=== PATIENT | female | born 1940 | race Caucasian/White ===

== ENCOUNTER 2024-02-22 20:45 | Emergency (ER) | payer OTHER, MEDICAID, SELFPAY ==
[2024-02-22 20:47] VITALS: BP 122/71; PULSE 62; RESP 18; TEMP 36.9; O2SAT 98; BMI 18.7
[2024-02-22 20:53] VITALS: PULSE 63; O2SAT 91
--- NOTE | 2024-02-22 21:17 | XR_ITS ---
Examination: Toes, right foot 3 views Technique: Toes AP oblique lateral 3 views right foot first digit Date and time of exam: February 22, [id number] hrs. Indications: Right first digit pain today Findings: No acute fracture No dislocation No foreign body Impression: No acute fracture
--- NOTE | 2024-02-22 21:17 | PD.EDANKLE ---
Lower Extremity Injury RME/HPI General Chief Complaint: Ankle/Foot Injury Stated Complaint: TOE PAIN Time Seen by Provider: 02/22/24 21:10 Arrival date/time: 02/22/24 20:45 RME / HPI RME / HPI Narrative: 83-year-old female patient was brought in by family for evaluation regarding laceration to the left great toe. Patient sustained laceration to the left great toe, after patient fell. Patient sustained a 2 cm gaping laceration. Patient denies any other complaints. Patient is ambulatory. Related Data Home Medications ?Medication ?Instructions ?Recorded ?Confirmed hydrocodone 10 mg-acetaminophen 1 tab PO BID #0 tabs 08/11/13 01/08/23 325 mg tablet amitriptyline 25 mg tablet 25 mg PO HS 04/22/21 01/08/23 atorvastatin 10 mg tablet 10 mg PO QPM 04/22/21 01/08/23 tizanidine 4 mg tablet 4 mg PO Q8HR PRN Dizziness 04/22/21 01/08/23 clopidogrel 75 mg tablet (Plavix) 75 mg PO QDAY 12/25/22 01/08/23 lansoprazole 30 mg capsule,delayed 30 mg PO QDAY 12/25/22 01/08/23 release (Prevacid) montelukast 10 mg tablet 10 mg PO QDAY 12/25/22 01/08/23 (Singulair) diclofenac sodium 75 mg 75 mg PO BID 01/08/23 01/08/23 tablet,delayed release meclizine 12.5 mg tablet 12.5 mg PO TID PRN Dizziness 01/08/23 01/08/23 metoprolol succinate 25 mg 25 mg PO QDAY 01/08/23 01/08/23 tablet,extended release 24 hr misoprostol 200 mcg tablet 200 mcg PO BID 01/08/23 01/08/23 pregabalin 100 mg capsule 100 mg PO BID 01/08/23 01/08/23 sertraline 100 mg tablet 100 mg PO QDAY 01/08/23 01/08/23 Previous Rx's ?Medication ?Instructions ?Recorded albuterol sulfate 90 mcg/actuation 1 inh inhalation QID PRN shortness 01/09/23 aerosol inhaler of breath or wheezing #6.7 grams furosemide 40 mg tablet 40 mg PO QDAY #30 tabs 01/09/23 lisinopril 40 mg tablet 40 mg PO QDAY #30 tabs 01/09/23 metoprolol succinate 25 mg 25 mg PO QDAY 30 days #30 tabs 01/09/23 tablet,extended release 24 hr nicotine 14 mg/24 hr daily 14 mg topical .OD #28 ea 01/09/23 transdermal patch tiotropium bromide 2.5 2 inh inhalation QAM #4 grams 01/09/23 mcg/actuation mist for inhalation (Spiriva Respimat) Allergies Allergy/AdvReac Type Severity Reaction Status Date / Time No Known Allergies Allergy Verified 12/23/22 08:17 Review of Systems Review of Systems Narrative Review of Systems: Review of system reviewed and within normal limits except mentioned in HPI ED Exam Narrative Physical exam: VITAL SIGNS: Reviewed. GENERAL APPEARANCE: Alert and interactive, follows commands, no acute distress, HEAD AND FACE: Non-traumatic. ENT: PERRL, pink conjunctivitis, eyelid no trauma, Mucous membrane moist. NECK: Supple, nontender, no nuchal rigidity. RECTAL: Deferred. GENITAL: Deferred. NEUROLOGICAL: Gross motor function intact sensory function intact, Appropriate for age. MUSCULOSKELETAL: low back nontender, full range of motion. EXTREMITIES: +2 cm left great toe laceration, dorsal aspect, full range of motion. SKIN: Color pink, dry, no rash,, no abrasions, no contusions. LYMPHATICS: Deferred. Course Quality Measures none Orders Category Date Time Status XR toe RT min 2V Stat Exams 02/22/24 21:17 Taken Acetaminophen Tab [Tylenol ES Tab] Med 02/22/24 21:16 Discontinued 500 mg PO X1 ONE Lidocaine 1% Pf 5 ml [Xylocaine 1% Pf 5 ml] Med 02/22/24 21:16 Discontinued 10 ml INFL X1 ONE Tet,Diphth,Pertuss(Acell)-Tdap [Boostrix Vacc] Med 02/22/24 21:16 Discontinued 0.5 ml IMI .ONCE ONE Vital Signs Vital signs: Vital Signs Temperature 98.4 F 02/22/24 20:47 Pulse Rate 62 02/22/24 20:47 Respiratory Rate 18 02/22/24 20:47 Blood Pressure 122/71 02/22/24 20:47 Pulse Oximetry (%) 98 02/22/24 20:47 Oxygen Delivery Method Room Air 02/22/24 20:47 Extremity Injury, Lower MDM Narrative MDM Narrative:: 83-year-old female patient was brought in by family for evaluation regarding laceration to the left great toe. Patient sustained laceration to the left great toe, after patient fell. Patient sustained a 2 cm gaping laceration. Patient denies any other complaints. Patient is ambulatory. X-ray of the foot is negative for any fracture dislocation. Repair and suturing was done by me see procedure notes Patient data External records reviewed:: None Clinical information provided by:: patient Social determinants that could affect healthcare access:: none Patient has the following chronic illnesses:: Hypertension How is presenting disease/condition affected by chronic disease/condition?: exacerbated by Evaluation data The following diagnostics were reviewed and interpreted by me:: radiology exam(s) Lab and/or radiology exams considered but not ordered:: None Interpretation Summary: X-ray of the foot is negative for any fracture dislocation. Medications / Prescriptions Medications or Prescriptions considered but not ordered:: None Medication administrations:: Medication Administration History Discontinued Medications Acetaminophen (Acetaminophen 500 Mg Tablet) 500 mg PO X1 ONE Stop: 02/22/24 21:17 Last Admin: 02/22/24 21:43 Dose: 500 mg Documented By: ROSY Diphtheria/Tetanus/Acell Pertussis (Diphth,Pertuss(Acell),Tet Vac 0.5 Ml Vial) 0.5 ml IMi .ONCE ONE Stop: 02/22/24 21:17 Last Admin: 02/22/24 21:42 Dose: 0.5 ml Documented By: ROSY Lidocaine HCl (Lidocaine Inj Pf 1% 5 Ml Vial) 10 ml INFL X1 ONE Stop: 02/22/24 21:17 Last Admin: 02/22/24 21:44 Dose: Not Given Documented By: ROSY Non-Admin Reason: Discontinued Boostrix, Tylenol Consultations Consultation(s) initiated? (list below): No Diagnosis Extremity Injury, Lower Differential Diagnosis: fracture of toe and other (To laceration) Most likely diagnosis given after review of the tests above:: Great toe laceration Admission Indicated Admission indicated?: not indicated Explain why admission is indicated or not indicated:: Stable Admission Request Was there a request for admission?: No Disposition Plan Disposition Plan: Discharge Discharge Attestation Discharge Attestation: The patient was given an opportunity to ask questions and understood the discharge instructions. Discharge instructions specifically effects, indications for sooner follow up or return to the emergency department, and the expected course of current diagnosis. Patient condition: Stable Discharge Plan Plan Patient Disposition: HOME (Self Care) Disposition Comment: Stable Prescriptions/Referrals Prescriptions/Med Rec: No Action hydrocodone-acetaminophen 10-325 mg Tablet 1 tab PO BID Qty: 0 atorvastatin 10 mg Tablet 10 mg PO QPM tizanidine 4 mg Tablet 4 mg PO Q8HR PRN (Reason: Dizziness) amitriptyline 25 mg tablet 25 mg PO HS Patient Comments: TAKE ONE TABLET BY MOUTH EVERY EVENING clopidogrel [Plavix] 75 mg Tablet 75 mg PO QDAY lansoprazole [Prevacid] 30 mg Capsule,Delayed Release(Dr/Ec) 30 mg PO QDAY montelukast [Singulair] 10 mg Tablet 10 mg PO QDAY meclizine 12.5 mg Tablet 12.5 mg PO TID PRN (Reason: Dizziness) sertraline 100 mg Tablet 100 mg PO QDAY misoprostol 200 mcg Tablet 200 mcg PO BID diclofenac sodium 75 mg Tablet,Delayed Release (Dr/Ec) 75 mg PO BID pregabalin 100 mg Capsule 100 mg PO BID metoprolol succinate 25 mg tablet extended release 24 hr 25 mg PO QDAY Patient Comments: TAKE 1 TABLET BY MOUTH EVERY DAY metoprolol succinate 25 mg Tablet Extended Release 24 Hr 25 mg PO QDAY 30 Days Qty: 30 1RF Spiriva Respimat 2.5 mcg/actuation mist 2 inh inhalation QAM Qty: 4 1RF albuterol sulfate 90 mcg/actuation HFA aerosol inhaler 1 inh inhalation QID PRN (Reason: shortness of breath or wheezing) Qty: 6.7 2RF furosemide 40 mg tablet 40 mg PO QDAY Qty: 30 1RF nicotine 14 mg/24 hr patch 24 hour 14 mg topical .OD Qty: 28 0RF lisinopril 40 mg tablet 40 mg PO QDAY Qty: 30 1RF Problem List Clinical Impression: Laceration of toe Patient/Caregiver Discharge Instructions Discharge Activity: activity as tolerated Education Materials: ED Laceration: All Closures Additional Instructions: Thank you for the opportunity for serving you today. You are stable for discharged . You are advised to: Follow-up with your PCP in 1 to 2 days Return to ED for worsening of symptoms Increase oral fluids Take [id number] Tylenol or Motrin as needed for pain Daily dressing with Neosporin as needed For removal of sutures in 7 days. Print Language: [place]izean Stand Alone Forms: Dianne Award Info., Patient Portal Info Letter PA/ALLIED HEALTH INSTRUCTOR Supervising Physician PA/ALLIED HEALTH INSTRUCTOR Supervising Physician: MD Geo
[2024-02-22] MEDS: DIPHTH,PERTUSS(ACELL),TET VAC 0.5 ML VIAL IMi (21:42)
[2024-02-22] MEDS: ACETAMINOPHEN 500 MG TABLET PO (21:43)
== END 2024-02-22 22:03 | disposition home or self-care (01) ==
LOC: SERX 22:17
PROVIDERS: Emergency Provider Emergency Medicine; PCP Family Medicine
DX: S91.112A Laceration without foreign body of left great toe without damage to nail, initial encounter (principal); W19.XXXA Unspecified fall, initial encounter; Z23 Encounter for immunization
CPT/HCPCS: 12001; 73660; 90471; 90715; 99283; A9270

== ENCOUNTER 2024-03-03 15:16 | Emergency (ER) | payer OTHER, MEDICAID, SELFPAY ==
[2024-03-03 15:18] VITALS: BMI 18.9
[2024-03-03 15:59] VITALS: BP 128/61; PULSE 62; RESP 18; TEMP 36.8; O2SAT 97
--- NOTE | 2024-03-03 16:07 | PD.EDANKLE ---
Lower Extremity Injury RME/HPI General Chief Complaint: Ankle/Foot Injury Stated Complaint: POSSIBLE FOOT INFECTION, NEEDS STITCHES REMOVED Time Seen by Provider: 03/03/24 16:05 Arrival date/time: 03/03/24 15:16 83-year-old female presents emergency department today requesting suture removal patient also is concerned that her foot is red and may be infected Limitations: no limitations Related Data Home Medications ?Medication ?Instructions ?Recorded ?Confirmed hydrocodone 10 mg-acetaminophen 1 tab PO BID #0 tabs 08/11/13 01/08/23 325 mg tablet amitriptyline 25 mg tablet 25 mg PO HS 04/22/21 01/08/23 atorvastatin 10 mg tablet 10 mg PO QPM 04/22/21 01/08/23 tizanidine 4 mg tablet 4 mg PO Q8HR PRN Dizziness 04/22/21 01/08/23 clopidogrel 75 mg tablet (Plavix) 75 mg PO QDAY 12/25/22 01/08/23 lansoprazole 30 mg capsule,delayed 30 mg PO QDAY 12/25/22 01/08/23 release (Prevacid) montelukast 10 mg tablet 10 mg PO QDAY 12/25/22 01/08/23 (Singulair) diclofenac sodium 75 mg 75 mg PO BID 01/08/23 01/08/23 tablet,delayed release meclizine 12.5 mg tablet 12.5 mg PO TID PRN Dizziness 01/08/23 01/08/23 metoprolol succinate 25 mg 25 mg PO QDAY 01/08/23 01/08/23 tablet,extended release 24 hr misoprostol 200 mcg tablet 200 mcg PO BID 01/08/23 01/08/23 pregabalin 100 mg capsule 100 mg PO BID 01/08/23 01/08/23 sertraline 100 mg tablet 100 mg PO QDAY 01/08/23 01/08/23 Previous Rx's ?Medication ?Instructions ?Recorded albuterol sulfate 90 mcg/actuation 1 inh inhalation QID PRN shortness 01/09/23 aerosol inhaler of breath or wheezing #6.7 grams furosemide 40 mg tablet 40 mg PO QDAY #30 tabs 01/09/23 lisinopril 40 mg tablet 40 mg PO QDAY #30 tabs 01/09/23 metoprolol succinate 25 mg 25 mg PO QDAY 30 days #30 tabs 01/09/23 tablet,extended release 24 hr nicotine 14 mg/24 hr daily 14 mg topical .OD #28 ea 01/09/23 transdermal patch tiotropium bromide 2.5 2 inh inhalation QAM #4 grams 01/09/23 mcg/actuation mist for inhalation (Spiriva Respimat) clindamycin HCl 300 mg capsule 300 mg PO TID 7 days #21 caps 03/03/24 Allergies Allergy/AdvReac Type Severity Reaction Status Date / Time No Known Allergies Allergy Verified 03/03/24 15:18 Review of Systems Review of Systems Systems Reviewed: All systems reviewed, normal except as documented Constitutional Constitutional: Reports system reviewed and no additional complaints, except as documented, Denies fever(s) and Denies headache(s) Eyes Eyes: Reports system reviewed and no additional complaints, except as documented and Denies blurry vision ENT Ears, Nose, Mouth, and Throat: Reports system reviewed and no additional complaints, except as documented, Denies headache(s), Denies nasal congestion and Denies nasal discharge Cardiovascular Cardiovascular: Reports system reviewed and no additional complaints, except as documented, Denies chest pain and Denies dyspnea Respiratory Respiratory: Reports system reviewed and no additional complaints, except as documented, Denies chest congestion, Denies cough and Denies dyspnea Gastrointestinal Gastrointestinal: Reports system reviewed and no additional complaints, except as documented and Denies abdominal pain Integumentary/Breasts Skin/Breast: Reports system reviewed and no additional complaints, except as documented, Denies rash and Reports wounds (Sutures in place right great toe mild erythema) Neurologic Neurologic: Reports system reviewed and no additional complaints, except as documented, Reports as per HPI and Denies headache(s) Past Medical History Past Medical History CARDIAC: Positive Cardiac Disorders, Congestive Heart Failure and Hypertension; Negative Cardiac Arrhythmia RESPIRATORY: Positive Chronic Obstructive Pulmonary Disease (COPD) (smoker) and Asthma; Negative Pneumonia GENITOURINARY: Negative Renal Disease REPRODUCTIVE: Positive Previous Pregnancies MUSCULOSKELETAL: Positive Musculoskeletal Disorders and Osteoporosis ENDOCRINE: Negative Diabetes Mellitus Type 1 or Diabetes Mellitus Type 2 HEMATOLOGIC: Negative Anemia or Sickle Cell Disease OTHER HISTORY: Negative Falls, Blood Transfusions, Anesthesia Reactions or Cancer Surgical History SURGICAL: Positive Carotid Endarterectomy Social History SMOKING STATUS: Current every day smoker SUBSTANCE USE: does not use ED Exam General Limitations: Present no limitations General appearance: Present alert and in no apparent distress Head Head exam: Present atraumatic Eye Eye exam: Present normal appearance, PERRL and EOMI ENT ENT exam: Present normal exam, normal oropharynx and mucous membranes moist Neck Neck exam: Present normal inspection, full ROM and trachea midline Chest Chest inspection: Present normal inspection and symmetric chest wall rise Respiratory Respiratory exam: Present normal lung sounds bilaterally Cardiovascular Cardiovascular exam: Present regular rate, normal rhythm and normal heart sounds Abdominal Exam Abdominal exam: Present soft and normal bowel sounds Extremities Exam Extremities exam: Present full ROM, tenderness, normal capillary refill and other (Erythema right foot sutures in place right great toe); Absent joint swelling Back Exam Back exam: Present normal inspection and full ROM Neurological Exam Neurological exam: Present alert, oriented X3 and CN II-XII intact Psychiatric Psychiatric exam: Present normal affect and normal mood Skin Skin exam: Present warm, dry and other (Erythema right foot sutures in place right great toe) Course Quality Measures none Vital Signs Vital signs: Vital Signs Temperature 98.2 F 03/03/24 15:59 Pulse Rate 62 03/03/24 15:59 Respiratory Rate 18 03/03/24 15:59 Blood Pressure 128/61 03/03/24 15:59 Pulse Oximetry (%) 97 03/03/24 15:59 Oxygen Delivery Method Room Air 03/03/24 15:59 O2 saturation 97% room air within normal limits Extremity Injury, Lower MDM Narrative MDM Narrative:: 83-year-old female presents emergency department today requesting suture removal patient also is concerned that her foot is red and may be infected On exam patient has mild erythema and sutures in place right great toe Sutures removed in their entirety there is no discharge As the patient is mild erythema patient which with course of antibiotics no definite abscess noted Patient discharged home in no distress to follow-up with primary care doctor in the next 24 to 48 hours and for any worsening symptoms to return to the ER immediately Patient data External records reviewed:: [facility] previous records Clinical information provided by:: patient Social determinants that could affect healthcare access:: none Patient has the following chronic illnesses:: See history How is presenting disease/condition affected by chronic disease/condition?: uneffected by Evaluation data The following diagnostics were reviewed and interpreted by me:: other (specify) (N/A) Lab and/or radiology exams considered but not ordered:: Consider not ordered Interpretation Summary: N/A Medications / Prescriptions Medications or Prescriptions considered but not ordered:: Given Medication administrations:: Given Consultations Consultation(s) initiated? (list below): No Diagnosis Extremity Injury, Lower Differential Diagnosis: other (Cellulitis, abscess) Most likely diagnosis given after review of the tests above:: Cellulitis, suture removal Admission Indicated Admission indicated?: not indicated Admission Request Was there a request for admission?: No Disposition Plan Disposition Plan: Discharge Discharge Attestation Discharge Attestation: The patient and all family members were given an opportunity to ask questions and understood the discharge instructions. Discharge instructions specifically effects, indications for sooner follow up or return to the emergency department, and the expected course of current diagnosis. Patient condition: Stable Discharge Plan Plan Patient Disposition: HOME (Self Care) Disposition Comment: Stable Prescriptions/Referrals Prescriptions/Med Rec: New clindamycin HCl 300 mg capsule 300 mg PO TID 7 Days Qty: 21 0RF No Action hydrocodone-acetaminophen 10-325 mg Tablet 1 tab PO BID Qty: 0 atorvastatin 10 mg Tablet 10 mg PO QPM tizanidine 4 mg Tablet 4 mg PO Q8HR PRN (Reason: Dizziness) amitriptyline 25 mg tablet 25 mg PO HS Patient Comments: TAKE ONE TABLET BY MOUTH EVERY EVENING clopidogrel [Plavix] 75 mg Tablet 75 mg PO QDAY lansoprazole [Prevacid] 30 mg Capsule,Delayed Release(Dr/Ec) 30 mg PO QDAY montelukast [Singulair] 10 mg Tablet 10 mg PO QDAY meclizine 12.5 mg Tablet 12.5 mg PO TID PRN (Reason: Dizziness) sertraline 100 mg Tablet 100 mg PO QDAY misoprostol 200 mcg Tablet 200 mcg PO BID diclofenac sodium 75 mg Tablet,Delayed Release (Dr/Ec) 75 mg PO BID pregabalin 100 mg Capsule 100 mg PO BID metoprolol succinate 25 mg tablet extended release 24 hr 25 mg PO QDAY Patient Comments: TAKE 1 TABLET BY MOUTH EVERY DAY metoprolol succinate 25 mg Tablet Extended Release 24 Hr 25 mg PO QDAY 30 Days Qty: 30 1RF Spiriva Respimat 2.5 mcg/actuation mist 2 inh inhalation QAM Qty: 4 1RF albuterol sulfate 90 mcg/actuation HFA aerosol inhaler 1 inh inhalation QID PRN (Reason: shortness of breath or wheezing) Qty: 6.7 2RF furosemide 40 mg tablet 40 mg PO QDAY Qty: 30 1RF nicotine 14 mg/24 hr patch 24 hour 14 mg topical .OD Qty: 28 0RF lisinopril 40 mg tablet 40 mg PO QDAY Qty: 30 1RF Problem List Clinical Impression: Infection of right foot, Visit for suture removal Patient/Caregiver Discharge Instructions Education Materials: Suture Care Additional Instructions: Please follow up with your primary care doctor in the next 24-48hrs for any worsening symptoms return here immediately Print Language: [place] Islander Stand Alone Forms: Dianne Award Info., Patient Portal Info Letter PA/SIDE SEAM MACHINE OPERATOR Supervising Physician PA/SEJAL Supervising Physician: dr ovalles
== END 2024-03-03 16:23 | disposition home or self-care (01) ==
LOC: SERX 16:27
PROVIDERS: Emergency Provider Emergency Medicine
DX: Z48.02 Encounter for removal of sutures (principal); L08.9 Local infection of the skin and subcutaneous tissue, unspecified
CPT/HCPCS: 99282

== ENCOUNTER 2024-03-09 13:12 | Emergency (ER) | payer OTHER, MEDICAID, SELFPAY ==
[2024-03-09 13:16] VITALS: BP 152/70; PULSE 77; RESP 16; TEMP 36.7; O2SAT 97
[2024-03-09 13:17] VITALS: BMI 18.7
--- NOTE | 2024-03-09 13:23 | XR_ITS ---
Examination: Foot, right, 3 views Technique: AP, oblique, lateral views foot, 3 views Date and time of exam: March 09, 2024 1330 hrs. Indications: Patient fell today with injury to foot, foot pain Findings: Severe osteopenia No acute fracture No foreign body Impression: No acute fracture Given the patient's severe osteopenia, recommend short-term follow-up foot films as clinically warranted
--- NOTE | 2024-03-09 13:23 | PD.EDADULT ---
ED General RME/HPI General Chief complaint: Skin/Abscess/Foreign Body Stated complaint: FOOT PAIN Time Seen by Provider: 03/09/24 13:18 Arrival date/time: 03/09/24 13:12 CC: The right great toe and foot pain HPI patient fell in mid February requiring stitches to the top of the toe, the patient states that she has since been removed the toe and the foot continued to be painful and tender with ambulation. Patient denies fever shortness of breath or difficulty breathing. Review of the past medical record show the patient is a COPD on home O2 Related Data Home Medications ?Medication ?Instructions ?Recorded ?Confirmed hydrocodone 10 mg-acetaminophen 1 tab PO BID #0 tabs 08/11/13 01/08/23 325 mg tablet amitriptyline 25 mg tablet 25 mg PO HS 04/22/21 01/08/23 atorvastatin 10 mg tablet 10 mg PO QPM 04/22/21 01/08/23 tizanidine 4 mg tablet 4 mg PO Q8HR PRN Dizziness 04/22/21 01/08/23 clopidogrel 75 mg tablet (Plavix) 75 mg PO QDAY 12/25/22 01/08/23 lansoprazole 30 mg capsule,delayed 30 mg PO QDAY 12/25/22 01/08/23 release (Prevacid) montelukast 10 mg tablet 10 mg PO QDAY 12/25/22 01/08/23 (Singulair) diclofenac sodium 75 mg 75 mg PO BID 01/08/23 01/08/23 tablet,delayed release meclizine 12.5 mg tablet 12.5 mg PO TID PRN Dizziness 01/08/23 01/08/23 metoprolol succinate 25 mg 25 mg PO QDAY 01/08/23 01/08/23 tablet,extended release 24 hr misoprostol 200 mcg tablet 200 mcg PO BID 01/08/23 01/08/23 pregabalin 100 mg capsule 100 mg PO BID 01/08/23 01/08/23 sertraline 100 mg tablet 100 mg PO QDAY 01/08/23 01/08/23 Previous Rx's ?Medication ?Instructions ?Recorded albuterol sulfate 90 mcg/actuation 1 inh inhalation QID PRN shortness 01/09/23 aerosol inhaler of breath or wheezing #6.7 grams furosemide 40 mg tablet 40 mg PO QDAY #30 tabs 01/09/23 lisinopril 40 mg tablet 40 mg PO QDAY #30 tabs 01/09/23 metoprolol succinate 25 mg 25 mg PO QDAY 30 days #30 tabs 01/09/23 tablet,extended release 24 hr nicotine 14 mg/24 hr daily 14 mg topical .OD #28 ea 01/09/23 transdermal patch tiotropium bromide 2.5 2 inh inhalation QAM #4 grams 01/09/23 mcg/actuation mist for inhalation (Spiriva Respimat) clindamycin HCl 300 mg capsule 300 mg PO TID 7 days #21 caps 03/03/24 Allergies Allergy/AdvReac Type Severity Reaction Status Date / Time No Known Allergies Allergy Verified 03/09/24 14:01 Review of Systems Review of Systems Narrative Review of Systems: GEN: No fever, no chills, no weight loss EYES: No discharge, no visual changes, no pain HEENT: No ear pain, no congestion, no sore throat PULM: No shortness of breath, no cough, no congestion CV: No chest pain, no dyspnea on exertion, no palpitations GI: No nausea, no vomiting, no diarrhea, no pain, no constipation : No frequency, no urgency, no dysuria MUSC/SKEL: + joint pain, no back pain SKIN: No rash PSYCH: No hallucinations, no depression HEME/LYMPH: No easy bleeding or bruising tendencies NEURO: No weakness, no headache Past Medical History Past Medical History CARDIAC: Positive Cardiac Disorders, Congestive Heart Failure and Hypertension; Negative Cardiac Arrhythmia RESPIRATORY: Positive Chronic Obstructive Pulmonary Disease (COPD) (smoker) and Asthma; Negative Pneumonia GENITOURINARY: Negative Renal Disease REPRODUCTIVE: Positive Previous Pregnancies MUSCULOSKELETAL: Positive Musculoskeletal Disorders and Osteoporosis ENDOCRINE: Negative Diabetes Mellitus Type 1 or Diabetes Mellitus Type 2 HEMATOLOGIC: Negative Anemia or Sickle Cell Disease OTHER HISTORY: Negative Falls, Blood Transfusions, Anesthesia Reactions or Cancer Surgical History SURGICAL: Positive Carotid Endarterectomy Social History SMOKING STATUS: Current every day smoker SUBSTANCE USE: does not use ED Exam Narrative Physical exam: [General: Thin but not emaciated not in any acute distress Head normocephalic HEENT: Within acceptable limits Neck is supple nontender Chest equal chest rise nontender to palpation Respiratory: Clear to auscultation no wheezes crackles or rubs CV: Rate rhythm is regular no murmurs rubs or clicks Abdomen is flat, soft nontender no masses positive bowel sounds all 4 quadrants Back: No CVA tenderness no spinous process tenderness from cervical spine thoracic and lumbar spine Skin: Dorsum of the great toe: Laceration site stitches removed clean dry and intact scab still intact mild surrounding erythema that is not warm to touch. Intact no petechiae rash induration ulceration or crepitus Extremities: Pain with flexion extension of all 5 toes in the right foot. Cap refill less than 2 seconds. Moving all other extremities against resistance cap refill less than 2 seconds neurosensory intact Neuro: Awake alert oriented x3 Glascow coma 15 no focal deficits] Course Quality Measures none Orders Category Date Time Status XR foot comp RT min 3V Stat Exams 03/09/24 13:23 Completed CBC Stat Lab 03/09/24 14:00 Completed Vital Signs Vital signs: Vital Signs Temperature 98.0 F 03/09/24 13:16 Pulse Rate 77 03/09/24 13:16 Respiratory Rate 16 03/09/24 13:16 Blood Pressure 152/70 H 03/09/24 13:16 Pulse Oximetry (%) 97 03/09/24 13:16 Oxygen Delivery Method Room Air 03/09/24 13:16 MDM Patient data External records reviewed:: [facility] previous records Clinical information provided by:: patient Social determinants that could affect healthcare access:: none Patient has the following chronic illnesses:: COPD How is presenting disease/condition affected by chronic disease/condition?: uneffected by Evaluation data The following diagnostics were reviewed and interpreted by me:: lab results and radiology exam(s) Lab and/or radiology exams considered but not ordered:: CBC is within acceptable limits X-ray of the foot is negative for any acute finding Interpretation Summary: She can be discharged home with toe pain. Medications Medications considered but not ordered:: None Medication administrations:: None Consultations Consultation(s) initiated? (list below): No Diagnosis Differential Diagnosis ED Complaint MDM: Osteomyelitis toe cellulitis toe abscess Most likely diagnosis given after review of the tests above:: Great toe pain Admission Indicated Admission indicated?: not indicated Explain why admission is indicated or not indicated:: Stable for outpatient follow-up Admission Request Was there a request for admission?: No Disposition Plan Disposition Plan: Discharge Discharge Attestation Discharge Attestation: The patient and all family members were given an opportunity to ask questions and understood the discharge instructions. Discharge instructions specifically effects, indications for sooner follow up or return to the emergency department, and the expected course of current diagnosis. Patient condition: Stable Medical Decision Making Differential Diagnosis Differential Diagnosis: Osteomyelitis toe cellulitis toe abscess Lab Data 03/09/24 14:00 Labs: Lab Results 03/09/24 Range/Units 14:00 WBC 7.2 (3.6-11.0) Thou/mm3 RBC 4.23 (4.00-5.20) Miln/mm3 Hgb 13.0 (12.0-16.0) g/dL Hct 39.9 (36.0-46.0) % MCV 94 (80-100) fL MCH 30.7 (25.0-35.0) pg MCHC 32.6 (31.0-37.0) g/dl RDW Std Deviation 50.7 H (36.4-46.3) fL Plt Count 275 (140-440) Thou/mm3 Neut % (Auto) 49 (37-80) % Lymph % (Auto) 38 (10-50) % Calloway % (Auto) 8 (0-12) % Eos % (Auto) 3 (0-10) % Baso % (Auto) 1 (0-2.5) % Neut # (Auto) 3.6 (1.8-7.7) Thou/mm3 Lymph # (Auto) 2.8 (1.0-4.8) Thou/mm3 Calloway # (Auto) 0.6 (0.0-0.8) Thou/mm3 Eos # (Auto) 0.2 (0.0-0.5) Thou/mm3 Baso # (Auto) 0.1 (0.0-0.2) Thou/mm3 Immature Gran # (Auto) 0.01 H (0.00-0.00) Thou/mm3 Absolute Nucleated RBC 0.00 (0.00-0.00) Thou/mm3 Immature Gran % 0 (0-0) % Nucleated RBC % 0 (0) /100 WBC Discharge Plan Plan Patient Disposition: HOME (Self Care) Patient condition on transfer: Stable Prescriptions/Referrals Prescriptions/Med Rec: No Action hydrocodone-acetaminophen 10-325 mg Tablet 1 tab PO BID Qty: 0 atorvastatin 10 mg Tablet 10 mg PO QPM tizanidine 4 mg Tablet 4 mg PO Q8HR PRN (Reason: Dizziness) amitriptyline 25 mg tablet 25 mg PO HS Patient Comments: TAKE ONE TABLET BY MOUTH EVERY EVENING clopidogrel [Plavix] 75 mg Tablet 75 mg PO QDAY lansoprazole [Prevacid] 30 mg Capsule,Delayed Release(Dr/Ec) 30 mg PO QDAY montelukast [Singulair] 10 mg Tablet 10 mg PO QDAY meclizine 12.5 mg Tablet 12.5 mg PO TID PRN (Reason: Dizziness) sertraline 100 mg Tablet 100 mg PO QDAY misoprostol 200 mcg Tablet 200 mcg PO BID diclofenac sodium 75 mg Tablet,Delayed Release (Dr/Ec) 75 mg PO BID pregabalin 100 mg Capsule 100 mg PO BID metoprolol succinate 25 mg tablet extended release 24 hr 25 mg PO QDAY Patient Comments: TAKE 1 TABLET BY MOUTH EVERY DAY metoprolol succinate 25 mg Tablet Extended Release 24 Hr 25 mg PO QDAY 30 Days Qty: 30 1RF Spiriva Respimat 2.5 mcg/actuation mist 2 inh inhalation QAM Qty: 4 1RF albuterol sulfate 90 mcg/actuation HFA aerosol inhaler 1 inh inhalation QID PRN (Reason: shortness of breath or wheezing) Qty: 6.7 2RF furosemide 40 mg tablet 40 mg PO QDAY Qty: 30 1RF nicotine 14 mg/24 hr patch 24 hour 14 mg topical .OD Qty: 28 0RF lisinopril 40 mg tablet 40 mg PO QDAY Qty: 30 1RF clindamycin HCl 300 mg capsule 300 mg PO TID 7 Days Qty: 21 0RF Referrals: Nicholas Allan MD [Primary Care Provider] - In 1 week Problem List Clinical Impression: Great toe pain Patient/Caregiver Discharge Instructions Education Materials: ED Toe Sprain Print Language: Norwegian Stand Alone Forms: Dianne Award Info., Patient Portal Info Letter
--- NOTE | 2024-03-09 14:05 | PC.NURSE ---
Pt states she does not have her walker with her and asked for assistance to rest room. Pt able to ambulate with minimal assistance.
[2024-03-09 14:22] VITALS: BP 110/43; PULSE 70; RESP 16; TEMP 36.4; O2SAT 98
[2024-03-09 14:29] LABS: Basophils # (Auto) 0.1 Thou/mm3 (0.0-0.2); Basophils % (Auto) 1 % (0-2.5); Eosinophils # (Auto) 0.2 Thou/mm3 (0.0-0.5); Eosinophils % (Auto) 3 % (0-10); Hematocrit 39.9 % (36.0-46.0); Immature Granulocytes % (Auto) 0 % (0-0); Immature Granulocytes Auto 0.01 Thou/mm3 (0.00-0.00); Lymphocytes # (Auto) 2.8 Thou/mm3 (1.0-4.8); Lymphocytes % (Auto) 38 % (10-50); Mean Corpuscular HGB Conc 32.6 g/dl (31.0-37.0); Mean Corpuscular Hemoglobin 30.7 pg (25.0-35.0); Mean Corpuscular Volume 94 fL (80-100); Monocytes # (Auto) 0.6 Thou/mm3 (0.0-0.8); Monocytes % (Auto) 8 % (0-12); Neutrophils # (Auto) 3.6 Thou/mm3 (1.8-7.7); Neutrophils % (Auto) 49 % (37-80); Nucleated Red Blood Cell % 0 /100 WBC (0); Platelet Count 275 Thou/mm3 (140-440); RDW Standard Deviation 50.7 fL (36.4-46.3); Red Blood Count 4.23 Miln/mm3 (4.00-5.20); White Blood Count 7.2 Thou/mm3 (3.6-11.0)
[2024-03-09 15:08] VITALS: BP 106/51; PULSE 71; RESP 18; TEMP 36.8; O2SAT 100
== END 2024-03-09 15:08 | disposition home or self-care (01) ==
PROVIDERS: Registered Nurse General Practice; Emergency Provider Emergency Medicine; PCP Family Medicine
DX: M79.674 Pain in right toe(s) (principal); S91.11 Laceration without foreign body of toe without damage to nail; W19.XXXS Unspecified fall, sequela
CPT/HCPCS: 36415; 73630; 85025; 99283

== ENCOUNTER → 2024-04-03 | Outpatient (CLI) | payer OTHER, SELFPAY | END | disposition home or self-care (01) | PROVIDERS: PCP Family Medicine; Referring Provider Family Medicine; Visit Provider Student in an Organized Health Care Education/Training Program | DX: S91.101A Unspecified open wound of right great toe without damage to nail, initial encounter (principal); W19.XXXA Unspecified fall, initial encounter; F17.200 Nicotine dependence, unspecified, uncomplicated; D64.9 Anemia, unspecified; I10 Essential (primary) hypertension; J44.9 Chronic obstructive pulmonary disease, unspecified | CPT/HCPCS: 97597; 99213; A9270; G0463 ==

== ENCOUNTER → 2024-04-10 | Outpatient (CLI) | payer OTHER, SELFPAY | END | disposition home or self-care (01) | LOC: SWHD 11:04 | PROVIDERS: PCP Family Medicine; Referring Provider Family Medicine; Visit Provider Student in an Organized Health Care Education/Training Program | DX: S91.101A Unspecified open wound of right great toe without damage to nail, initial encounter (principal); W19.XXXA Unspecified fall, initial encounter; L97.512 Non-pressure chronic ulcer of other part of right foot with fat layer exposed; F17.200 Nicotine dependence, unspecified, uncomplicated; D64.9 Anemia, unspecified; I10 Essential (primary) hypertension; J44.9 Chronic obstructive pulmonary disease, unspecified | CPT/HCPCS: 97597; A9270 ==

== ENCOUNTER → 2024-05-19 | Outpatient (CLI) | payer OTHER, SELFPAY ==
--- NOTE | 2024-05-19 14:23 | XR_ITS ---
Examination: PA lateral chest 2 views TECHNIQUE: Upright PA lateral chest 2 views Exam date and time: May 19, 2024 at 1525 hours Comparison January 07, 2023 INDICATIONS: Smoking history, diagnosis COPD FINDINGS: Significant hyperexpansion Severe kyphosis dorsal spine secondary to severe chronic osteoporotic compressions mid dorsal vertebral bodies Suspicious for 20 mm pulmonary nodule left upper lobe on the current study Normal heart size IMPRESSION: Recommend CT chest follow-up to exclude 20 mm pulmonary mass left upper lobe
== END | disposition home or self-care (01) ==
PROVIDERS: PCP Family Medicine; Referring Provider Family Medicine; Visit Provider Family Medicine
DX: R91.8 Other nonspecific abnormal finding of lung field (principal)
CPT/HCPCS: 71046

== ENCOUNTER → 2024-05-20 | Outpatient (CLI) | payer OTHER, SELFPAY | END | disposition home or self-care (01) | PROVIDERS: PCP Family Medicine; Referring Provider Family Medicine; Visit Provider Student in an Organized Health Care Education/Training Program | DX: S91.101A Unspecified open wound of right great toe without damage to nail, initial encounter (principal); W19.XXXA Unspecified fall, initial encounter; L97.512 Non-pressure chronic ulcer of other part of right foot with fat layer exposed; F17.200 Nicotine dependence, unspecified, uncomplicated; D64.9 Anemia, unspecified; I10 Essential (primary) hypertension; J44.9 Chronic obstructive pulmonary disease, unspecified | CPT/HCPCS: 17250; 99213; A9270; G0463 ==

== ENCOUNTER 2024-05-25 16:18 | Emergency (ER) | payer OTHER, SELFPAY ==
--- NOTE | 2024-05-25 16:26 | XR_ITS ---
Examination: CT brain head without contrast. 2-D sagittal coronal reconstructions Date and time of exam:May 25, 2024 1507 hours INDICATIONS: Altered mental status are weakness today CTDI: vol (mGy):42 DLP: (mGycm): 980 Technique: Multiple CT axial sections of the brain have been obtained, 5 mm slice thickness. Contrast has not been administered. 2-D sagittal, coronal reconstructions have been obtained Low dose protocols were performed. One or more of the following dose reduction techniques were used; automated exposure control, adjustment of the mA and/or KV according to patient size, use of iterative reconstruction technique. Findings: No significant ventricular enlargement. Intra-axial or extra-axial hemorrhage density is not seen. No mass effect or midline shift Basal cisterns are not remarkable. Fourth ventricle is midline. Cranial vault intact. Impression: Negative for acute hemorrhage, mass effect or midline shift As clinically warranted, brain MRI follow-up would best assess for demyelinating disease, acute ischemic change
--- NOTE | 2024-05-25 16:26 | EKG_ITS ---
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
--- NOTE | 2024-05-25 16:28 | PD.EDRME ---
Rapid Medical Screening Exam RME Arrival date/time: 05/25/24 16:18 83 year old female present to Ed for c/o of arm weakness, multi complaints. I have greeted and performed a focused initial assessment of this patient. A comprehensive ED assessment and evaluation of the patient, analysis of all test results, and completion of the medical decision making process will be conducted by additional ED providers. Chief Complaint: Weakness Time Seen by Provider: 05/25/24 16:26
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
[2024-05-25 16:42] VITALS: BP 176/88; BP 183/83; PULSE 137; RESP 18; TEMP 36.6; O2SAT 95
[2024-05-25 17:11] LABS: Basophils # (Auto) 0.1 Thou/mm3 (0.0-0.2); Basophils % (Auto) 1 % (0-2.5); Eosinophils # (Auto) 0.1 Thou/mm3 (0.0-0.5); Eosinophils % (Auto) 1 % (0-10); Hematocrit 33.6 % (36.0-46.0); Hemoglobin 10.8 g/dL (12.0-16.0); Immature Granulocytes % (Auto) 0 % (0-0); Immature Granulocytes Auto 0.02 Thou/mm3 (0.00-0.00); Lymphocytes # (Auto) 1.5 Thou/mm3 (1.0-4.8); Lymphocytes % (Auto) 19 % (10-50); Mean Corpuscular HGB Conc 32.1 g/dl (31.0-37.0); Mean Corpuscular Hemoglobin 29.8 pg (25.0-35.0); Mean Corpuscular Volume 93 fL (80-100); Monocytes # (Auto) 0.7 Thou/mm3 (0.0-0.8); Monocytes % (Auto) 9 % (0-12); Neutrophils # (Auto) 5.3 Thou/mm3 (1.8-7.7); Neutrophils % (Auto) 69 % (37-80); Nucleated Red Blood Cell % 0 /100 WBC (0); Platelet Count 550 Thou/mm3 (140-440); RDW Standard Deviation 49.6 fL (36.4-46.3); Red Blood Count 3.63 Miln/mm3 (4.00-5.20); White Blood Count 7.7 Thou/mm3 (3.6-11.0)
[2024-05-25 17:22] LABS: Prothrombin Time 10.7 Seconds (9.0-12.2)
[2024-05-25 17:40] LABS: Alanine Aminotransferase 12 U/L (10-49); Albumin, Serum 4.7 gm/dL (3.4-4.8); Albumin/Globulin Ratio 1.8 (1.2-2.2); Alkaline Phosphatase 95 U/L (46-116); Anion Gap 6 (7-16); Aspartate Amino Transferase 19 U/L (0-34); BUN/Creatinine Ratio 13 Ratio (12-20); Bilirubin,Total 0.3 mg/dL (0.3-1.2); Blood Urea Nitrogen 14 mg/dL (9-23); Calcium 9.5 mg/dL (8.3-10.6); Calcium (Corrected) 9.5 mg/dL (8.5-10.1); Carbon Dioxide 24.9 mMol/L (20.0-31.0); Chloride 94 mMol/L (98-107); Creatinine (Component) 1.1 mg/dL (0.6-1.3); Globulin 2.6 gm/dL (2.3-3.5); Glucose 115 mg/dL (74-106); Lipase 42 U/L (12-53); Osmolality,Calculated 253 (275-295); Potassium 4.8 mMol/L (3.4-5.1); Sodium 125 mMol/L (136-145); Total Protein 7.3 gm/dL (5.7-8.2); Troponin I < 0.020 ng/mL (0.0-0.045); eGFR 50 See Note
--- NOTE | 2024-05-25 19:00 | PC.NURSE ---
DAY SHIFT NURSE THINKS SHE LEFT ER.
--- NOTE | 2024-05-25 20:52 | PC.NURSE ---
NO ANSWER AT ER LOBBY OR OUTSIDE ER TO BE RE EVALUATED.
--- NOTE | 2024-05-25 20:53 | PC.NURSE ---
DAUGHTER CALLED , I INFORMED HERE THAT PT NOT HERE NO MORE.
--- NOTE | 2024-05-25 21:04 | PC.NURSE ---
NO ANSWER AT ER LOBBY OR OUTSIDE ER TO BE RE VALUATED.
--- NOTE | 2024-05-25 21:06 | PD.EDADDENDU ---
Emergency Room Addendum Addendum Narrative: Patient was initially seen by our JERICA and diagnostic tests ordered. When I looked for the patient, I was told she eloped. Lenard Pozo MD
== END 2024-05-25 21:13 | disposition left against medical advice (07) ==
PROVIDERS: Physician Assistant; Emergency Provider Emergency Medicine
DX: R53.1 Weakness (principal); R41.82 Altered mental status, unspecified; R00.0 Tachycardia, unspecified; Z53.29 Procedure and treatment not carried out because of patient's decision for other reasons
CPT/HCPCS: 36415; 70450; 80053; 81001; 83690; 84484; 85025; 85610; 87400; 93005; 99281

== ENCOUNTER → 2024-05-27 | Outpatient (CLI) | payer OTHER, SELFPAY | END | disposition home or self-care (01) | LOC: SWHD 14:43 | PROVIDERS: PCP Family Medicine; Referring Provider Family Medicine; Visit Provider Student in an Organized Health Care Education/Training Program | DX: S91.101A Unspecified open wound of right great toe without damage to nail, initial encounter (principal); W19.XXXA Unspecified fall, initial encounter; L97.512 Non-pressure chronic ulcer of other part of right foot with fat layer exposed; F17.200 Nicotine dependence, unspecified, uncomplicated; D64.9 Anemia, unspecified; I10 Essential (primary) hypertension; J44.9 Chronic obstructive pulmonary disease, unspecified | CPT/HCPCS: 99213; A9270; G0463 ==

== ENCOUNTER 2024-06-11 20:22 | Emergency (ER) | payer OTHER, MEDICAID, SELFPAY ==
[2024-06-11 20:26] VITALS: BP 100/57; PULSE 107; RESP 20; TEMP 37.3; O2SAT 85
[2024-06-11 20:27] VITALS: O2SAT 95
[2024-06-11 20:28] VITALS: BMI 18.1
--- NOTE | 2024-06-11 20:56 | XR_ITS ---
Examination: Foot, right, 3 views Technique: AP, oblique, lateral views foot, 3 views Date and time of exam: June 11, 2024 2109 hrs. Indications: Patient fell today with injury to foot, foot pain Findings: Severe osteopenia No acute fracture No dislocation Impression: No acute fracture
--- NOTE | 2024-06-11 20:56 | XR_ITS ---
EXAMINATION: Ankle, right 3 views . Technique: Ankle AP, oblique, lateral 3 views Date and time of exam: June 11, 2024 2109 hrs. Indications: Patient fell today with injury to the ankle, ankle pain. Findings: No acute fracture No dislocation No foreign body Impression: No acute fracture
--- NOTE | 2024-06-11 23:14 | PC.NURSE ---
per provider patient is ok for discharge. patient was picked up by her neighbor. patient is gcs 15.
--- NOTE | 2024-06-12 01:45 | PD.EDANKLE ---
Lower Extremity Injury RME/HPI General Chief Complaint: Fall Stated Complaint: LEFT FOOT PAIN DUE TO FALL Time Seen by Provider: 06/11/24 20:55 Arrival date/time: 06/11/24 20:22 83F with history of HTN, COPD and CHF presents to ED with L foot/ankle pain after trip and fall in bathroom. Patient denies hitting head, back, neck, ab, as well as N/V, dizziness, weakness, SOB, CP, and fevers/chills. Limitations: no limitations Related Data Home Medications ?Medication ?Instructions ?Recorded ?Confirmed hydrocodone 10 mg-acetaminophen 1 tab PO BID #0 tabs 08/11/13 01/08/23 325 mg tablet amitriptyline 25 mg tablet 25 mg PO HS 04/22/21 01/08/23 atorvastatin 10 mg tablet 10 mg PO QPM 04/22/21 01/08/23 tizanidine 4 mg tablet 4 mg PO Q8HR PRN Dizziness 04/22/21 01/08/23 clopidogrel 75 mg tablet (Plavix) 75 mg PO QDAY 12/25/22 01/08/23 lansoprazole 30 mg capsule,delayed 30 mg PO QDAY 12/25/22 01/08/23 release (Prevacid) montelukast 10 mg tablet 10 mg PO QDAY 12/25/22 01/08/23 (Singulair) diclofenac sodium 75 mg 75 mg PO BID 01/08/23 01/08/23 tablet,delayed release meclizine 12.5 mg tablet 12.5 mg PO TID PRN Dizziness 01/08/23 01/08/23 metoprolol succinate 25 mg 25 mg PO QDAY 01/08/23 01/08/23 tablet,extended release 24 hr misoprostol 200 mcg tablet 200 mcg PO BID 01/08/23 01/08/23 pregabalin 100 mg capsule 100 mg PO BID 01/08/23 01/08/23 sertraline 100 mg tablet 100 mg PO QDAY 01/08/23 01/08/23 Previous Rx's ?Medication ?Instructions ?Recorded albuterol sulfate 90 mcg/actuation 1 inh inhalation QID PRN shortness 01/09/23 aerosol inhaler of breath or wheezing #6.7 grams furosemide 40 mg tablet 40 mg PO QDAY #30 tabs 01/09/23 lisinopril 40 mg tablet 40 mg PO QDAY #30 tabs 01/09/23 metoprolol succinate 25 mg 25 mg PO QDAY 30 days #30 tabs 01/09/23 tablet,extended release 24 hr nicotine 14 mg/24 hr daily 14 mg topical .OD #28 ea 01/09/23 transdermal patch tiotropium bromide 2.5 2 inh inhalation QAM #4 grams 01/09/23 mcg/actuation mist for inhalation (Spiriva Respimat) Allergies Allergy/AdvReac Type Severity Reaction Status Date / Time No Known Allergies Allergy Verified 03/09/24 14:01 Review of Systems Review of Systems Systems Reviewed: All systems reviewed, normal except as documented Constitutional Constitutional: Reports system reviewed and no additional complaints, except as documented, Denies fever(s) and Denies headache(s) ENT Ears, Nose, Mouth, and Throat: Denies disequilibrium and Denies headache(s) Cardiovascular Cardiovascular: Reports system reviewed and no additional complaints, except as documented, Denies chest pain and Denies dyspnea Respiratory Respiratory: Reports system reviewed and no additional complaints, except as documented, Denies cough and Denies dyspnea Gastrointestinal Gastrointestinal: Reports system reviewed and no additional complaints, except as documented, Denies abdominal pain, Denies nausea and Denies vomiting Musculoskeletal Musculoskeletal: Reports as per HPI and Reports arthralgias Neurologic Neurologic: Reports system reviewed and no additional complaints, except as documented, Denies confusion, Denies disequilibrium and Denies headache(s) Psychiatric Psychiatric: Denies confusion Past Medical History Past Medical History NEUROLOGIC: Positive Migraine CARDIAC: Positive Cardiac Disorders and Hypertension; Negative Cardiac Arrhythmia or Congestive Heart Failure RESPIRATORY: Positive Chronic Obstructive Pulmonary Disease (COPD) and Asthma; Negative Pneumonia GASTROINTESTINAL: Positive Ulcer GENITOURINARY: Negative Renal Disease REPRODUCTIVE: Positive Previous Pregnancies MUSCULOSKELETAL: Positive Musculoskeletal Disorders and Osteoporosis ENDOCRINE: Negative Diabetes Mellitus Type 1 or Diabetes Mellitus Type 2 HEMATOLOGIC: Negative Anemia or Sickle Cell Disease PSYCHO/SOCIAL: Positive Depression and Anxiety OTHER HISTORY: Negative Falls, Blood Transfusions, Anesthesia Reactions or Cancer Surgical History SURGICAL: Positive Carotid Endarterectomy Social History SMOKING STATUS: Current some day smoker SUBSTANCE USE: does not use ED Exam General Limitations: Present no limitations General appearance: Present alert and in no apparent distress Head Head exam: Present atraumatic Eye Eye exam: Present normal appearance, PERRL and EOMI ENT ENT exam: Present normal exam, normal oropharynx and mucous membranes moist Neck Neck exam: Present normal inspection, full ROM and trachea midline Chest Chest inspection: Present normal inspection and symmetric chest wall rise Respiratory Respiratory exam: Present normal lung sounds bilaterally Cardiovascular Cardiovascular exam: Present regular rate, normal rhythm and normal heart sounds Abdominal Exam Abdominal exam: Present soft and normal bowel sounds Extremities Exam Extremities exam: Present full ROM Expanded Lower Extremity Exam Ankle exam: Present full ROM (L) and tenderness Foot/toe exam: Present full ROM and tenderness Back Exam Back exam: Present normal inspection and full ROM Neurological Exam Neurological exam: Present alert, oriented X3 and CN II-XII intact Psychiatric Psychiatric exam: Present normal affect and normal mood Skin Skin exam: Present warm, dry, intact and normal color Course Quality Measures none Orders Category Date Time Status Crutches .NOW Care 06/11/24 22:12 Completed Wound Care NOW Care 06/11/24 20:56 Completed thang wrap [Splint / Immobilizer] STAT Care 06/11/24 22:12 Completed XR ankle comp RT min 3V Stat Exams 06/11/24 20:56 Completed XR foot comp RT min 3V Stat Exams 06/11/24 20:56 Completed Vital Signs Vital signs: Vital Signs Temperature 99.2 F 06/11/24 20:26 Pulse Rate 107 H 06/11/24 20:26 Respiratory Rate 20 06/11/24 20:26 Blood Pressure 100/57 L 06/11/24 20:26 Pulse Oximetry (%) 85 L 06/11/24 20:26 Oxygen Delivery Method Room Air 06/11/24 20:26 O2 at 85% on RA; patient is normally on O2 and was at 95% on 2 LPM Extremity Injury, Lower MDM Narrative MDM Narrative:: 83F with history of HTN, COPD and CHF presents to ED with L foot/ankle pain after trip and fall in bathroom. Patient denies hitting head, back, neck, ab, as well as N/V, dizziness, weakness, SOB, CP, and fevers/chills. Physical exam reveals normal pupil response and EOM. Normal neck ROM. Clear lungs. Normal WOB. No midline back tenderness. R foot/ankle tenderness. ROM mostly intact. Patient is able to bear some weight on it. Patient is afebrile, calm, and alert. XR no fx. Given THANG, crutches (patient wants even though she has walker at home), and tariff counsel. Patient data External records reviewed:: [facility] previous records Clinical information provided by:: patient Social determinants that could affect healthcare access:: none Patient has the following chronic illnesses:: HTN, COPD and CHF How is presenting disease/condition affected by chronic disease/condition?: uneffected by Evaluation data The following diagnostics were reviewed and interpreted by me:: radiology exam(s) Lab and/or radiology exams considered but not ordered:: ordered Interpretation Summary: above Medications / Prescriptions Medications or Prescriptions considered but not ordered:: not ordered Medication administrations:: n/a Consultations Consultation(s) initiated? (list below): No Diagnosis Extremity Injury, Lower Differential Diagnosis: ankle sprain and strain, acute internal derangement of knee, fracture of femur, fracture of hip, puncture wound of foot, fracture of toe and ankle fracture Most likely diagnosis given after review of the tests above:: ankle sprain/strain Admission Indicated Admission indicated?: not indicated Admission Request Was there a request for admission?: No Disposition Plan Disposition Plan: Discharge Discharge Attestation Discharge Attestation: The patient and all family members were given an opportunity to ask questions and understood the discharge instructions. Discharge instructions specifically effects, indications for sooner follow up or return to the emergency department, and the expected course of current diagnosis. Patient condition: Stable Discharge Plan Plan Patient Disposition: HOME (Self Care) Disposition Comment: Stable Prescriptions/Referrals Prescriptions/Med Rec: No Action hydrocodone-acetaminophen 10-325 mg Tablet 1 tab PO BID Qty: 0 atorvastatin 10 mg Tablet 10 mg PO QPM tizanidine 4 mg Tablet 4 mg PO Q8HR PRN (Reason: Dizziness) amitriptyline 25 mg tablet 25 mg PO HS Patient Comments: TAKE ONE TABLET BY MOUTH EVERY EVENING clopidogrel [Plavix] 75 mg Tablet 75 mg PO QDAY lansoprazole [Prevacid] 30 mg Capsule,Delayed Release(Dr/Ec) 30 mg PO QDAY montelukast [Singulair] 10 mg Tablet 10 mg PO QDAY meclizine 12.5 mg Tablet 12.5 mg PO TID PRN (Reason: Dizziness) sertraline 100 mg Tablet 100 mg PO QDAY misoprostol 200 mcg Tablet 200 mcg PO BID diclofenac sodium 75 mg Tablet,Delayed Release (Dr/Ec) 75 mg PO BID pregabalin 100 mg Capsule 100 mg PO BID metoprolol succinate 25 mg tablet extended release 24 hr 25 mg PO QDAY Patient Comments: TAKE 1 TABLET BY MOUTH EVERY DAY metoprolol succinate 25 mg Tablet Extended Release 24 Hr 25 mg PO QDAY 30 Days Qty: 30 1RF Spiriva Respimat 2.5 mcg/actuation mist 2 inh inhalation QAM Qty: 4 1RF albuterol sulfate 90 mcg/actuation HFA aerosol inhaler 1 inh inhalation QID PRN (Reason: shortness of breath or wheezing) Qty: 6.7 2RF furosemide 40 mg tablet 40 mg PO QDAY Qty: 30 1RF nicotine 14 mg/24 hr patch 24 hour 14 mg topical .OD Qty: 28 0RF lisinopril 40 mg tablet 40 mg PO QDAY Qty: 30 1RF Referrals: Nicholas Allan MD [Primary Care Provider] - In 1 week Problem List Clinical Impression: Sprain and strain of ankle Patient/Caregiver Discharge Instructions Education Materials: ED Ankle Sprain (Adult) Additional Instructions: Please follow-up with PCP within 24-48 hours and return immediately if symptoms worsen. If problem persists, recommend outpatient PT and/or MRI follow-up. In the meantime, rest, use ice/heat, and/or compression. Print Language: Arabic Stand Alone Forms: Patient Portal Info Letter PA/FUEL OPERATOR Supervising Physician PA/FUEL OPERATOR Supervising Physician: Dr. Pozo
== END 2024-06-11 23:15 | disposition home or self-care (01) ==
PROVIDERS: Emergency Provider Emergency Medicine; PCP Family Medicine
DX: S93.401A Sprain of unspecified ligament of right ankle, initial encounter (principal); S96.911A Strain of unspecified muscle and tendon at ankle and foot level, right foot, initial encounter; W01.0XXA Fall on same level from slipping, tripping and stumbling without subsequent striking against object, initial encounter
CPT/HCPCS: 73610; 73630; 99283

== ENCOUNTER 2024-06-18 09:26 | Inpatient (IN) | payer OTHER, MEDICAID, MEDICARE, SELFPAY ==
[2024-06-18] VITALS (41 sets, daily range): BP systolic 99–178; BP diastolic 50–92; PULSE 84–163; RESP 6–100; TEMP 36.2–37.3; O2SAT 73–100; BMI 18.8
--- NOTE | 2024-06-18 09:30 | PC.NURSE ---
PT CAME IN WITH EMS DUE TO ALTERED MENTAL STATUS AND LOW BS THE WAS READING ON MONITOR AT 20 AND LESS. BLOW MOLD OPERATOR FALLOWED PROTOCOL AND GAVE D10 250 BOLUS AND NO INCREASE UPON ARRIVAL TO ED. ON ARRIVAL PT STILL CRITICAL LOW BS AND SO WE GAVE AMP D50 PER OUR PROTOCOL. PT HR INCREASED 150-160BPM, BP 92/60 WITH EMS AND NOW 120/78, RECTAL TEMP WNL. PT HAS HX OF COPD AND HTN. PT IS [facility] OF 12/13 A&0 X3 BUT NOTICED SLOW SPEECH. DOCTOR ALISA AT BEDSIDE. PT PLACED ON MONITOR/PULSE OX AND DEFIB PADS FOR MONITORING.
--- NOTE | 2024-06-18 09:40 | EDNOTE_ITS ---
ED General RME/HPI General Chief complaint: Altered Mental Status Stated complaint: AMS Time Seen by Provider: 06/18/24 09:39 Arrival date/time: 06/18/24 09:26 RME / HPI RME / HPI narrative: Dr. Argueta?[facility] Main ED Evaluation: 83 y/o female with H/o Migraine, Hypertension, Chronic Obstructive Pulmonary Disease (COPD) and Asthma, Ulcer, Osteoporosis, Depression and Anxiety, amd Carotid Endarterectomy BIBA presents to ED c/o altered mental status x 1 day. Patient reports not eating well due to bad appetite . Denies any diarrhea, fever, chills, or sick contacts. Also denies any black or bloody stool. Patient reports history of blood transfusion due to bleeding stomach ulcers. Per EMS, blood sugar was in the 20's and administered D10. Patient also admits to taking PLAVIX. Patient does not use O2 supplementation at home. No modifying factors reported. No other concerns or complaints expressed at this time. Related Data Home Medications ?Medication ?Instructions ?Recorded ?Confirmed hydrocodone 10 mg-acetaminophen 1 tab PO BID #0 tabs 0 08/11/13 01/08/23 325 mg tablet amitriptyline 25 mg tablet 25 mg PO HS 04/22/21 atorvastatin 10 mg tablet 10 mg PO QPM 04/22/21 tizanidine 4 mg tablet 4 mg PO Q8HR PRN Dizziness 0 04/22/21 01/08/23 clopidogrel 75 mg tablet (Plavix) 75 mg PO QDAY 01/08/23 lansoprazole 30 mg capsule,delayed 30 mg PO QDAY 12/2501/08/23 release (Prevacid) montelukast 10 mg tablet 10 mg PO QDAY 12/25/2201/08 (Singulair) diclofenac sodium 75 mg 75 mg PO BID 01/08/23 tablet,delayed release meclizine 12.5 mg tablet 12.5 mg PO TID PRN Dizziness 01/08/23 01/08/23 metoprolol succinate 25 mg 25 mg PO QDAY 01/08/2308/25 tablet,extended release 24 hr misoprostol 200 mcg tablet 200 mcg PO BID 01/08/2308/25 pregabalin 100 mg capsule 100 mg PO BID 01/08/2301/08 sertraline 100 mg tablet 100 mg PO QDAY 01/08/23 11/0 08/25 Previous Rx's ?Medication ?Instructions ?Recorded albuterol sulfate 90 mcg/actuation 1 inh inhalation QI D PRN shortness 01/09/23 aerosol inhaler of breath or wheezing #6.7 g niall furosemide 40 mg tablet 40 mg PO QDAY #30 tabs 01/09 lisinopril 40 mg tablet 40 mg PO QDAY #30 tabs 01/09 metoprolol succinate 25 mg 25 mg PO QDAY 30 days #30 t abs 01/09/23 tablet,extended release 24 hr nicotine 14 mg/24 hr daily 14 mg topical .OD #28 ea transdermal patch tiotropium bromide 2.5 2 inh inhalation QAM #4 gram s 01/09/23 mcg/actuation mist for inhalation (Spiriva Respimat) Allergies Allergy/AdvReac Type Severity Reaction Status Date / Time No Known Allergies Allergy Verified 03/09/24 14:01 Review of Systems Review of Systems Systems Reviewed: All systems reviewed, normal except as documented Narrative Review of Systems: Gen: No fever, no chills, no weight loss EYES: No discharge, no visual changes, no pain HEENT: No ear pain, no congestion, no sore throat PULM: No shortness of breath, no cough, no congestion CV: No chest pain, no dyspnea on exertion, no palpitations GI: No nausea, no vomiting, no diarrhea, no pain, no constipation, no black or bloody stool. : No frequency, no urgency, no dysuria Musc/skel: No joint pain, no back pain Skin: No rash Psyc: No hallucinations, no depression Heme/Lymph: No easy bleeding or bruising tendencies Neuro: No weakness, no headache Past Medical History Past Medical History NEUROLOGIC: Positive Migraine CARDIAC: Positive Cardiac Disorders and Hypertension RESPIRATORY: Positive Chronic Obstructive Pulmonary Disease (COPD) and Asthma GASTROINTESTINAL: Positive Ulcer REPRODUCTIVE: Positive Previous Pregnancies MUSCULOSKELETAL: Positive Musculoskeletal Disorders and Osteoporosis PSYCHO/SOCIAL: Positive Depression and Anxiety OTHER HISTORY: Negative Anesthesia Reactions Surgical History SURGICAL: Positive Carotid Endarterectomy Social History SMOKING STATUS: Current some day smoker SUBSTANCE USE: does not use ED Exam Narrative Physical exam: GENERAL APPEARANCE: AxOx4, generally ill-appearing, no acute distress. HEENT: NC, AT. MMM. EOMI, clear conjunctiva, oropharynx clear. NECK: Supple without lymphadenopathy. No stiffness or restricted ROM. HEART: Normal rate and regular rhythm, normal S1/S1, no m/r/g LUNGS: CTAB, mild respiratory distress. No crackles or wheezes are heard. ABDOMEN: Soft, diffusely tender, greatest in bilateral lower quadrants, nondistended with good bowel sounds heard. RECTAL: Bedside Stool Guiac positive, Brown to melanotic stool. BACK: No midline C/T/L spine pain or deformity, No CVAT, no obvious deformity. EXTREMITIES: Without cyanosis, clubbing or edema. MUSCULOSKELETAL: FROM of all major joints, no chest tenderness NEUROLOGICAL: Grossly nonfocal. Alert and oriented, moving all 4 extremities. CN not formally tested but appear grossly intact. Skin: Mild palor. Course Quality Measures Current suspected stage: sepsis Possible source: pulmonary Blood cultures ordered: completed in ED Antibiotic ordered: Yes Pertinent labs: 06/18/24 06/18/24 10:10 13:32 Lactic Acid 8.4 H* mMol/L 11.5 H* mMol/L (0.4-2.0) (0.4-2.0) Procalcitonin 3.52 H ng/ml (0.0-0.49) sepsis Orders Category Date Time Status Admit to Inpatient Status Routine Admission 06/18/24 16:04 Active Patient Condition Routine Admission 06/18/24 16:03 Ordered Bedrest NOW Care 06/18/24 16:05 Active Bedside Blood Glucose Q2HR Care 06/18/24 16:07 Active Bedside Blood Glucose Q2HX3 Care 06/18/24 12:51 Active COVID-19 Screening Questionnaire NOW Care 06/18/24 14:[address] Screening NOW Care 06/18/24 13:56 Active Decision to Admit X1 Care 06/18/24 14:51 Completed EKG (ED ONLY) *Do not use* NOW Care 06/18/24 09:40 Completed NPO NOW Care 06/18/24 16:05 Active Notify provider NEEDED Care 06/18/24 16:03 Active Occult blood,Gastric (Nursing) ONCE Care 06/18/24 09:43 Active Strict Intake and Output Routine Care 06/18/24 16:04 Ordered Consult to General Surgery Stat Cons 06/18/24 13:58 Ordered Consult to Nephrology Stat Cons 06/18/24 14:54 Ordered Diet NPO (NOW) Diet 06/18/24 16:05 Active CA echo doppler complete Stat Exams 06/18/24 16:[address] angio abdomen pelvis Stat Exams 06/18/24 13:[address] chest abdomen pelvis wo Stat Exams 06/18/24 12:[address] head/brain wo con Stat Exams 06/18/24 12:44 Completed EKG (ED Only) Stat Exams 06/18/24 09:40 Draft XR chest 1V Stat Exams 06/18/24 09:40 Completed ABG [Arterial Blood Gas] Stat Lab 06/18/24 16:05 Completed Acetaminophen Stat Lab 06/18/24 11:41 Completed Alcohol, Blood Medical Stat Lab 06/18/24 10:10 Completed Beta Hydroxybutyrate Stat Lab 06/18/24 13:32 Completed Blood Culture (Lab) Routine Lab 06/18/24 16:39 Received CBC AM DRAW Lab 06/19/24 04:44 Completed CBC AM DRAW Lab 06/20/24 05:00 Ordered CBC AM DRAW Lab 06/21/24 05:00 Ordered CBC Stat Lab 06/18/24 10:10 Completed CMP [Comprehensive Metabolic Panel] Stat Lab 06/18/24 10:10 Completed CMP [Comprehensive Metabolic Panel] Stat Lab 06/18/24 11:41 Completed Comprehensive Metabolic Panel AM DRAW Lab 06/20/24 05:00 Ordered Comprehensive Metabolic Panel AM DRAW Lab 06/21/24 05:00 Ordered Creatine Kinase Stat Lab 06/18/24 11:41 Completed Drug Screen,Urine Stat Lab 06/18/24 10:35 Completed Lactate (Lactic Acid) Stat Lab 06/18/24 10:10 Completed Lactic Acid, 3 HR Stat Lab 06/18/24 13:32 Completed Magnesium AM DRAW Lab 06/20/24 05:00 Ordered Magnesium AM DRAW Lab 06/21/24 05:00 Ordered Occult Blood, Stool (LAB) Stat Lab 06/18/24 09:35 Completed Partial Thromboplastin Time Stat Lab 06/18/24 10:10 Completed Procalcitonin Stat Lab 06/18/24 10:10 Completed Prothrombin Time with INR Stat Lab 06/18/24 10:10 Completed Salicylate Stat Lab 06/18/24 11:41 Completed Troponin I Q6H Lab 06/19/24 04:44 Results Troponin I Stat Lab 06/18/24 10:10 Completed Type and Screen Stat Lab 06/18/24 10:10 Completed Urinalysis Stat Lab 06/18/24 10:35 Completed Urine Culture Routine Lab 06/18/24 16:06 Ordered VBG [Venous Blood Gas] Stat Lab 06/18/24 13:32 Completed Acetaminophen Supp [Tylenol Supp] Med 06/18/24 16:03 Active 650 mg MI Q6HR PRN Calcium Chloride 10% Abboject Med 06/18/24 12:51 Discontinued 10 ml IV X1 ONE Dextrose 10%-Water 1000 ml [D10w 1000 ml] 1,000 ml Med 06/18/24 13:00 Discontinued IV 100 mls/hr Dextrose 10%-Water 1000 ml [D10w 1000 ml] 1,000 ml Med 06/18/24 15:16 Discontinued IV 25 mls/hr Dextrose 5%-0.45% Ns [D5-1/2Ns] 500 ml Med 06/18/24 19:57 Discontinued Sodium Bicarb 8.4% 50ml Vial* 150 meq IV 125 mls/hr Dextrose 5%-Water [D5w] 500 ml Med 06/18/24 15:00 Discontinued Sodium Bicarb 8.4% 50ml Vial* 88.23 meq IV 125 mls/hr Dextrose 50% Syr [D50w Syringe Abboject] Med 06/18/24 12:51 Active 25 ml IV Q15MIN PRN Dextrose 50% Syr [D50w Syringe Abboject] Med 06/18/24 12:51 Active 50 ml IV Q15MIN PRN Dextrose 50% Syr [D50w Syringe Abboject] Med 06/18/24 12:51 Discontinued 50 ml IV X1 ONE Glucagon Inj Med 06/18/24 16:07 Active 1 mg IM Q15MIN PRN Heparin Inj Med 06/18/24 21:00 Active 5,000 unit SC BID Insulin Regular Med 06/18/24 12:51 Discontinued 10 unit IV X1 ONE Morphine Inj Med 06/18/24 10:39 Discontinued 2 mg IVP X1 ONE Pantoprazole Inj [Protonix Inj] Med 06/18/24 09:40 Discontinued 80 mg IV X1 ONE Piper/Tazo 3.375 gm Premix [Zosyn] Med 06/18/24 13:58 Discontinued 3.375 gm in 50 ml IV X1 Sod Polystyrene Sulfon Susp [Kayexalate Susp] Med 06/18/24 12:51 Discontinued 60 gm PO X1 ONE Sodium Bicarb 8.4% 50ml Vial* Med 06/18/24 14:12 Discontinued 50 meq IV X1 ONE Sodium Bicarb 8.4% SYR Med 06/18/24 12:51 Discontinued 50 ml IV X1 ONE Sodium Bicarb 8.4% SYR Med 06/18/24 14:31 Discontinued 50 ml IV X1 ONE Sodium Chloride 0.9% 500 ml [Ns] 500 ml Med 06/18/24 09:39 Discontinued IV 999 mls/hr Sodium Chloride 0.9% 500 ml [Ns] 500 ml Med 06/18/24 10:47 Discontinued IV 999 mls/hr Sodium Chloride 0.9% 500 ml [Ns] 500 ml Med 06/18/24 11:25 Discontinued IV 999 mls/hr cefTRIAXone/D5w 1gm IV premix [Rocephin/D5w 1gm IV Med 06/18/24 11:25 Discontinued premix] 1 gm in 50 ml IV X1 Code Status Routine Oth 06/18/24 16:03 Ordered Oxygen Delivery PRN RT 06/18/24 16:03 Active Reevaluation(s) Reevaluation #1: On reassessment, the patient complains of no pain. However, on examination and palpation of her abdomen the patient turns and bebe although continous to report she has no pain. Will consult with general surgeon. Time: 13:40 Vital Signs Vital signs: Vital Signs Pulse Rate 152 H 06/18/24 09:34 Respiratory Rate 29 H 06/18/24 09:34 Blood Pressure 120/78 06/18/24 09:34 Procedures -ED EKG Interpretation #1: Date of EK06/18/24 Time of EK:50 Rate: 94 Interpretation: Interpreted by me Additional EKG comment: T-wave aversion in anterior lateral, new since last EKG 3 weeks ago, No STEMI. [facility] Patient data External records reviewed:: [facility] previous records ( Reviewed prior ED visit records. Patient was seen on 06/11/24 for Sprain and strain of ankle.) and EMS form Clinical information provided by:: patient and EMS Social determinants that could affect healthcare access:: none Patient has the following chronic illnesses:: Migraine, Hypertension, Chronic Obstructive Pulmonary Disease (COPD) and Asthma, Ulcer, Osteoporosis, Depression and Anxiety, amd Carotid Endarterectomy How is presenting disease/condition affected by chronic disease/condition?: e xacerbated by Evaluation data The following diagnostics were reviewed and interpreted by me:: lab results, radiology exam(s) and EKG tracing(s) (see interpretation under the procedures tab.) Lab and/or radiology exams considered but not ordered:: None Interpretation Summary: Patient: ROSELYN EMERSON. Record#: [id number] Birthdate: 1940 Age/Sex: 83 / F Examination: AP chest single view Technique one AP portable upright chest single view Exam date and time: June 18, 2024 1005 hours Comparison May 19, 2024 INDICATIONS: Weakness shortness of breath today. FINDINGS: Early heart failure Mild enlargement cardiac contour Prominent vascular congestion with early septal edema Consider superimposed bilateral pneumonia Prominent osteopenia IMPRESSION: Early heart failure Consider superimposed early bilateral pneumonia, the appearance should be clinically correlated Dictated By: Aly Reynolds MD Signed By: Electronically signed by Aly Reynolds MD in [place] 06/18/24 1029 Procedure(s): CT head/brain wo con Date and time of exam:June 18, 2024 1300 hours Comparison May 25, 2024 INDICATIONS: Altered mental status sepsis today Technique: Multiple CT axial sections of the brain have been obtained, 5 mm slice thickness. Contrast has not been administered. 2-D sagittal, coronal reconstructions have been obtained Low dose protocols were performed. One or more of the following dose reduction techniques were used; automated exposure control, adjustment of the mA and/or KV according to patient size, use of iterative reconstruction technique. Findings: No significant ventricular enlargement. Intra-axial or extra-axial hemorrhage density is not seen. No mass effect or midline shift Basal cisterns are not remarkable. Fourth ventricle is midline. Cranial vault intact. Impression: Negative for acute hemorrhage, mass effect or midline shift Advise clinical correlation and follow-up accordingly Dictated By: Aly Reynolds MD Signed By: Electronically signed by Aly Reynolds MD in [place] 06/18/24 1323 Procedure(s): CT chest abdomen pelvis wo Date and time of exam:June 18, 2024 1311 hours INDICATIONS: Altered mental status with sepsis today COMPARISON: December 24, 2022 CTDI vol (mgy) 6.59 DLP (MGycm)403 Technique: Multiple CT images, 3.0 mm slice thickness, obtained chest, abdomen, pelvis, with the high-resolution 64 slice scanner.. Sagittal and coronal 2-D reconstructions are obtained. 3-D reconstructions Low dose protocols were performed. One or more of the following dose reduction techniques were used; automated exposure control, adjustment of the mA and/or KV according to patient size, use of iterative reconstruction technique. Findings: Thoracic aortic calcification no aneurysmal dilatation Main pulmonary artery segment measures 40 mm No paratracheal tracheobronchial or bronchopulmonary adenopathy COPD with multiple areas of airspace destruction Prominent central pulmonary arteries 15 mm spiculated pulmonary mass left lower lobe No pneumonia or pulmonary edema Mild to moderate enlargement left atrium left ventricle Heavy coronary artery calcification No visualized liver or splenic lesion No gallstones Common hepatic duct 5 mm No pancreatic mass Heavy abdominal aortic calcification No bowel obstruction No pericecal inflammatory change Distended urinary bladder Abundant stool in the rectum with thickening the rectal wall No pelvic mass Mild increased density in the retroperitoneal fat in the pelvis, axial image 186 Severe osteopenia with chronic severe compression T10 IMPRESSION: COPD Pulmonary artery hypertension 15 mm spiculated pulmonary mass left lower lobe, differential would include pulmonary edema Increased density in the retroperitoneal fat in the pelvis which may indicate an infectious or inflammatory process, recommend pelvic sonography follow-up Abundant stool in the rectum with presumed proctitis pattern Distended urinary bladder Dictated By: Aly Reynolds MD Signed By: Electronically signed by Aly Reynolds MD in [place] 06/18/24 1337 Medications Medications considered but not ordered:: None Medication administrations:: Medication Administration History Acetaminophen (Acetaminophen Supp 650 Mg Supp) 650 mg MI Q6HR PRN PRN Reason: FEVER>101.5 Stop: 07/18/24 16:02 Dextrose (Dextrose 50%-Water Inj 50 Ml Syringe) 25 ml IV Q15MIN PRN PRN Reason: BG 50-70 responsive npo pt Stop: 07/18/24 12:50 Last Admin: 06/18/24 18:22 Dose: 25 ml Documented By: Admin: 06/18/24 15:28 Dose: 25 ml Documented By: JANES Dextrose (Dextrose 50%-Water Inj 50 Ml Syringe) 50 ml IV Q15MIN PRN PRN Reason: BG <50 OR BG <70 & pt unresponsive Stop: 07/18/24 12:50 Glucagon (Glucagon Inj 1 Mg Vial) 1 mg IM Q15MIN PRN PRN Reason: BG <70, and no IV access Heparin Sodium (Porcine) (Heparin Sod Inj 5000 Unit/Ml Vial) 5,000 unit SC BID [facility] Stop: 07/02/24 20:59 Last Admin: 06/18/24 22:00 Dose: Not Given Documented By: BASSAM Non-Admin Reason: DR CUEVAS SAID TO HOLD Azithromycin 250 mg/ Sodium (Chloride) 250 mls @ 250 mls/hr IV QDAY@2100 [facility] Stop: 06/25/24 20:59 Ceftriaxone Sodium 1 gm/ (Sodium Chloride) 50 mls @ 100 mls/hr IV QDAY [facility] Stop: 06/26/24 07:59 Piperacillin/Tazobactam/Dextrose (Zosyn) 3.375 gm in 50 mls @ 12.5 mls/hr IV Q8HR [facility] Stop: 06/25/24 21:59 Last Admin: 06/19/24 06:24 Dose: 12.5 mls/hr Documented By: Infusion: 06/19/24 03:00 Dose: Infused Documented By: Admin: 06/18/24 23:00 Dose: 12.5 mls/hr Documented By: BASSAM Dextrose (D5w) 1,000 mls @ 150 mls/hr IV .Q6H40M [facility] Stop: 07/19/24 06:25 Discontinued Medications Calcium Chloride (Calcium Chloride 10% Inj 10 Ml Syrg) 10 ml IV X1 ONE Stop: 06/18/24 12:52 Last Admin: 06/18/24 14:18 Dose: 10 ml Documented By: JANES Dextrose (Dextrose 50%-Water Inj 50 Ml Syringe) 50 ml IV X1 ONE Stop: 06/18/24 12:52 Last Admin: 06/18/24 14:20 Dose: 50 ml Documented By: JANES Sodium Chloride (Ns) 500 mls @ 999 mls/hr IV .Q31M ONE Stop: 06/18/24 10:09 Last Infusion: 06/18/24 11:36 Dose: Infused Documented By: Admin: 06/18/24 10:17 Dose: 999 mls/hr Documented By: JANES Sodium Chloride (Ns) 500 mls @ 999 mls/hr IV .Q31M ONE Stop: 06/18/24 11:17 Last Infusion: 06/18/24 12:07 Dose: Infused Documented By: Admin: 06/18/24 11:32 Dose: 999 mls/hr Documented By: JANES Sodium Chloride (Ns) 500 mls @ 999 mls/hr IV .Q31M ONE Stop: 06/18/24 11:55 Last Infusion: 06/18/24 12:07 Dose: Infused Documented By: Admin: 06/18/24 11:35 Dose: 999 mls/hr Documented By: JANES Ceftriaxone Sodium/Dextrose (Rocephin/D5w 1gm Iv Premix) 1 gm in 50 mls @ 100 mls/hr IV X1 ONE Stop: 06/18/24 11:54 Last Infusion: 06/18/24 12:06 Dose: Infused Documented By: Admin: 06/18/24 11:35 Dose: 100 mls/hr Documented By: JANES Dextrose (D10w 1000 Ml) 1,000 mls @ 100 mls/hr IV .Q10H TAWNY Stop: 06/18/24 22:59 Last Admin: 06/18/24 14:43 Dose: Not Given Documented By: JANES Non-Admin Reason: Cancelled by Provider Piperacillin/Tazobactam/Dextrose (Zosyn) 3.375 gm in 50 mls @ 100 mls/hr IV X1 ONE Stop: 06/18/24 14:27 Last Infusion: 06/18/24 15:33 Dose: Infused Documented By: Admin: 06/18/24 14:21 Dose: 100 mls/hr Documented By: JANES Sodium Bicarbonate 150 meq/ (Dextrose/Sodium Chloride) 650 mls @ 125 mls/hr IV .Q5H12M TAWNY Stop: 07/18/24 19:56 Sodium Bicarbonate 88.23 meq/ (Dextrose) 588.23 mls @ 125 mls/hr IV .Q4H43M TAWNY Stop: 07/18/24 14:59 Last Admin: 06/18/24 16:03 Dose: Not Given Documented By: JOSE AA Non-Admin Reason: Cancelled by Provider Dextrose (D10w 1000 Ml) 1,000 mls @ 25 mls/hr IV .Q24H TAWNY Stop: 06/19/24 15:15 Last Infusion: 06/19/24 03:45 Dose: 0 mls/hr Documented By: Infusion: 06/18/24 18:56 Dose: 50 mls/hr Documented By: Admin: 06/18/24 15:27 Dose: 25 mls/hr Documented By: JANES Azithromycin 250 mg/ Sodium (Chloride) 250 mls @ 250 mls/hr IV X1 ONE Stop: 06/18/24 18:29 Last Admin: 06/18/24 19:45 Dose: 250 mls/hr Documented By: ROSY Dextrose/Sodium Chloride (D5-Ns) 1,000 mls @ 100 mls/hr IV .Q10H TAWNY Stop: 07/18/24 17:44 Last Admin: 06/18/24 18:57 Dose: Not Given Documented By: JANES Non-Admin Reason: Cancelled by Provider Dextrose (D10w 1000 Ml) 1,000 mls @ 50 mls/hr IV .Q20H TAWNY Stop: 06/19/24 23:17 Dextrose (D5w) 1,000 mls @ 100 mls/hr IV .Q10H TAWNY Stop: 07/19/24 03:29 Last Infusion: 06/19/24 06:32 Dose: 150 mls/hr Documented By: Admin: 06/19/24 03:45 Dose: 100 mls/hr Documented By: BASSAM Insulin Human Regular (Insulin Hum Regular 1 Unit/0.01 Ml (Per Unit)) 10 unit IV X1 ONE Stop: 06/18/24 12:52 Last Admin: 06/18/24 14:19 Dose: 10 unit Documented By: JANES Co-signed By: GM Morphine Sulfate (Morphine Sulf Inj 10 Mg/Ml Vial) 2 mg IVP X1 ONE Stop: 06/18/24 10:40 Last Admin: 06/18/24 11:29 Dose: 2 mg Documented By: JANES Pantoprazole Sodium (Pantoprazole Inj 40 Mg Vial) 80 mg IV X1 ONE Stop: 06/18/24 09:41 Last Admin: 06/18/24 10:19 Dose: 80 mg Documented By: JANES Sodium Bicarbonate (Sodium Bicarb Inj 8.4% Syr 50 Ml Syringe) 50 ml IV X1 ONE Stop: 06/18/24 12:52 Last Admin: 06/18/24 14:42 Dose: 50 ml Documented By: JANES Sodium Bicarbonate (Sodium Bicarb Inj 8.4% 1 Meq/Ml 50 Ml Vial) 50 meq IV X1 ONE Stop: 06/18/24 14:13 Last Admin: 06/18/24 14:34 Dose: 50 meq Documented By: JANES Sodium Bicarbonate (Sodium Bicarb Inj 8.4% Syr 50 Ml Syringe) 50 ml IV X1 ONE Stop: 06/18/24 14:32 Last Admin: 06/18/24 14:44 Dose: Not Given Documented By: JANES Non-Admin Reason: Cancelled by Provider Sodium Polystyrene Sulfonate (Sod Polystyrene Sulfon Susp 15 Gm/60 Ml Btl) 60 gm PO X1 ONE Stop: 06/18/24 12:52 Last Admin: 06/18/24 14:20 Dose: 60 gm Documented By: JANES See above if any Consultations Consultation(s) initiated? (list below): Yes Consultation #1 (Physician, Specialty, Details): I spoke with general surgeon Dr. Conner. Discussed patient?s HPI, PMHx, lab and radiology results. Reports he will come assess the patient in the ED. Time: 13:45 Consultation #2 (Physician, Specialty, Details): I consulted with radiologist Dr. Reynolds and reviewed case and renal profile and agrees to low contrast dosing CT angio abdomen pelvis using 60cc of contrast Time: 13:56 Consultation #3 (Physician, Specialty, Details): 1400: Surgeon Dr. Conner at bedside. Reports at this time patient has a soft abdomen and agrees she has pain on palpation. States he will follow the patient and pending CTA results. 1420: I spoke with tassel snipper Dr. Pa. We went over the urine results. States with the rising lactic acid there is some ischemic component somewhere. States patient is also in rhabdo given positive blood with negative RBC in microscopy. She recommended increasing alkalinization with D5W d5w and 3 amps of sodium bicarb. 1425: I spoke with psychiatric attendant Dr. Huddleston. Discussed patients PMHx, HPI, ED course, exam findings, labs, radiology results, and recommendations from surgeon and tassel snipper. Requesting an ABG and will come assess patient in the ED. 1555: Patient accepted for admission to the ICU. Diagnosis Differential Diagnosis ED Complaint MDM: Ischemic bowel, weakness, hypoglycemia, seizure, sepsis, pneumonia Most likely diagnosis given after review of the tests above:: Septic shock rhabdomyolysis EMMY metabolic acidosis Admission Indicated Admission indicated?: indicated Explain why admission is indicated or not indicated:: Further evaluation and management Admission Request Was there a request for admission?: Yes Admission Attestation Admission request attestation: Discussed case with [Dr. Huddleston] from critical care service regarding admission. Discussed patients ED course, exam findings, labs, and radiology results. The psychiatric attendant [agrees] to accept the patient for admission. Disposition Plan Disposition Plan: Admit Medical Decision Making [facility] Narrative [facility] Narrative: Ms. Emerson presents to the emergency department quite ill. Initially found down, possibly for extended period of time, EMS noted altered mental status with a blood sugar in the 20s and transported to emergency department on D10. Patient was immediately brought to the resuscitation room and given parenteral glucose supplementation. Clinically she responded well, mental status improved, with stable vital signs. However she did remain slightly confused, requesting to leave the hospital, and then trying to get up, wincing in pain, and then saying maybe not . She seems would do this several times almost persevering. She does not report pain, however on exam does acknowledge pain in the lower quadrants. Abdominal is otherwise soft. Laboratory testing was concerning for a profound metabolic derangement, stat repeat metabolic profile validated these derangements of metabolic acidosis, acidemia, and hyperkalemia, in the setting of a mild EMMY. Patient has a nongap metabolic acidosis with a blood gas acidemia 6.95. She was resuscitated aggressively with IV fluids, and taking also her concomitant hyperkalemia, she was given calcium, insulin, and 2 unit dosages (100cc) of sodium bicarbonate. Lactic acidosis returned critically high at 8, with an elevated leukocytosis, sepsis alert was initiated and started on broad spectrum antibiotics. However her extreme lactic acidosis and being relatively stable raises concern for either post seizure/postictal lactic acidosis, or given her abdominal pain, ischemic bowel. CT scan of the head abdomen pelvis without contrast shows no acute findings but possibly some inflammatory changes in her pelvic region. There was no obvious pneumatosis intestinalis. Repeat lactic acid, despite aggressive 30 cc/kg IV fluid resuscitation, increased to 11 pointing more towards ischemic bowel and general surgery was consulted. I discussed the case with radiology and we agreed to a low-dose contrast angiography to further elucidate any abdominal pathology. Case was also discussed with nephrology, with the additional rhabdomyolysis (total CK of 16,000 and evidence of myoglobinuria) to start D5 water in order to add 3 unit dosages of sodium bicarbonate to begin to alkalinize her urine. Nephrology also agrees with the low dose contrast for angiography. No need for emergent dialysis as hyperkalemia will likely resolve with improvement of acidosis. Case was discussed with the ICU team and agrees to admit for further care. CT angio results and and further planning have been signed over to ICU and general surgery. Scribe Attestation: IGarima, am scribing for and in the presence of Dr. Argueta. Provider Notation: Although this document has been carefully reviewed, there may still be some phonetic and other typographical errors. These errors are purely grammatical due to imperfections in the software program and should not be construed in any way to compromise the substance of the patient's medical care during this visit. Differential Diagnosis Differential Diagnosis: Ischemic bowel, weakness, hypoglycemia, seizure, sepsis, pneumonia Lab Data 06/19/24 04:44 06/19/24 04:44 Labs: Lab Results 06/18/24 06/18/24 06/18/24 Range/Units 09:35 10:10 10:35 WBC 25.2 H (3.6-11.0) Thou/mm3 RBC 3.19 L (4.00-5.20) Miln/mm3 Hgb 8.3 L (12.0-16.0) g/dL Hct 27.6 L (36.0-46.0) % MCV 87 (80-100) fL MCH 26.0 (25.0-35.0) pg MCHC 30.1 L (31.0-37.0) g/dl RDW Std Deviation 61.6 H (36.4-46.3) fL Plt Count 490 H D (140-440) Thou/mm3 Neut % (Auto) 95 H (37-80) % Lymph % (Auto) 2 L (10-50) % Hill % (Auto) 2 (0-12) % Eos % (Auto) 0 (0-10) % Baso % (Auto) 0 (0-2.5) % Neut # (Auto) 23.9 H (1.8-7.7) Thou/mm3 Lymph # (Auto) 0.5 L (1.0-4.8) Thou/mm3 Hill # (Auto) 0.6 (0.0-0.8) Thou/mm3 Eos # (Auto) 0.0 (0.0-0.5) Thou/mm3 Baso # (Auto) 0.0 (0.0-0.2) Thou/mm3 Immature Gran # (Auto) 0.22 H (0.00-0.00) Thou/mm3 Absolute Nucleated RBC 0.99 H (0.00-0.00) Thou/mm3 Immature Gran % 1 H (0-0) % Nucleated RBC % 4 H (0) /100 WBC PT 13.9 H D (9.0-12.2) Seconds INR 1.3 (0.9-1.3) APTT 22.8 (22.0-36.0) Seconds Puncture Site ABG pH (7.35-7.45) ABG pCO2 (32.0-48.0) mmHg ABG pO2 (83-108) mmHg ABG HCO3 (20-26) mEq/L ABG O2 Saturation (91-98) % ABG Base Excess (-3-3) VBG pH (7.33-7.66) VBG pCO2 (36-56) mmHg VBG pO2 (15-58) mmHg VBG O2 Sat (Lily) (96-97) % VBG Base Excess (-3-3) FiO2 % Sodium 139 (136-145) mMol/L Potassium 6.6 H* (3.4-5.1) mMol/L Chloride 107 (98-107) mMol/L Carbon Dioxide 10.6 L* (20.0-31.0) mMol/L Anion Gap 21 H (7-16) BUN 60 H (9-23) mg/dL Creatinine 1.8 H (0.6-1.3) mg/dL Estim Creat Clear Calc 17.0 L (>60) mL/min eGFR 28 L (60 - ) See Note BUN/Creatinine Ratio 33 H (12-20) Ratio Glucose 631 H* (74-106) mg/dL Calculated Osmolality 324 H (275-295) Lactic Acid 8.4 H* (0.4-2.0) mMol/L Calcium 7.6 L (8.3-10.6) mg/dL Corrected Calcium 8.0 L (8.5-10.1) mg/dL Total Bilirubin 1.0 (0.3-1.2) mg/dL AST 411 H (0-34) U/L ALT 139 H (10-49) U/L Alkaline Phosphatase 92 (46-116) U/L Total Creatine Kinase (34-171) U/L Troponin I 0.647 H* (0.0-0.045) ng/mL Total Protein 5.8 (5.7-8.2) gm/dL Albumin 3.5 (3.4-4.8) gm/dL Globulin 2.3 (2.3-3.5) gm/dL Albumin/Globulin Ratio 1.5 (1.2-2.2) Beta-Hydroxybutyrate/Acetoacetate (<0.6) mmol/L Procalcitonin 3.52 H (0.0-0.49) ng/ml Ur Collection Type Clean Catch Urine Color Lt Yellow (Lt Yel-Yel) Urine Clarity Clear (Clear/Hazy) Urine pH 5.5 (5.0-7.0) Ur Specific [place] 1.018 (1.001-1.035) Urine Protein 1+ A (Neg - Trace) Urine Glucose (UA) Trace (Negative) Urine Ketones 1+ A (Negative) Urine Blood 3+ A (Negative) Urine Nitrite Negative (Negative) Urine Bilirubin Negative (Negative) Urine Urobilinogen (Auto) Negative (0.0-1.0) mg/dL Ur Leukocyte Esterase Negative (Negative) Urine RBC 0 (0-3) /hpf Urine WBC 4 (0-5) /hpf Ur Squamous Epith Cells 0 (0-5) /hpf Urine Bacteria Rare (None) Stool Occult Blood Positive A (Negative) Salicylates mg/dL Urine Opiates Screen Positive A (Negative) Urine Fentanyl Screen Negative (Negative) Acetaminophen (10.0-20.0) mcg/mL Ur Barbiturates Screen Negative (Negative) U Amphetamin/Meth Scrn Negative (Negative) U Benzodiazepines Scrn Negative (Negative) U Cocaine Metab Screen Negative (Negative) U Marijuana (THC) Screen Negative (Negative) Ethyl Alcohol < 3.0 (0-10.0) mg/dL Hepatitis A IgM Ab Non Reactive (Non React) Hep Bs Antigen Non Reactive (Non React) Hep B Core IgM Ab Non Reactive (Non React) Hepatitis C Antibody Non Reactive (Non React) Blood Type A Positive Antibody Screen NEGATIVE Crossmatch See Detail Blood Bank Wristband ID Yes 06/18/24 06/18/24 06/18/24 Range/Units 11:41 13:32 16:05 WBC (3.6-11.0) Thou/mm3 RBC (4.00-5.20) Miln/mm3 Hgb (12.0-16.0) g/dL Hct (36.0-46.0) % MCV (80-100) fL MCH (25.0-35.0) pg MCHC (31.0-37.0) g/dl RDW Std Deviation (36.4-46.3) fL Plt Count (140-440) Thou/mm3 Neut % (Auto) (37-80) % Lymph % (Auto) (10-50) % Hill % (Auto) (0-12) % Eos % (Auto) (0-10) % Baso % (Auto) (0-2.5) % Neut # (Auto) (1.8-7.7) Thou/mm3 Lymph # (Auto) (1.0-4.8) Thou/mm3 Hill # (Auto) (0.0-0.8) Thou/mm3 Eos # (Auto) (0.0-0.5) Thou/mm3 Baso # (Auto) (0.0-0.2) Thou/mm3 Immature Gran # (Auto) (0.00-0.00) Thou/mm3 Absolute Nucleated RBC (0.00-0.00) Thou/mm3 Immature Gran % (0-0) % Nucleated RBC % (0) /100 WBC PT (9.0-12.2) Seconds INR (0.9-1.3) APTT (22.0-36.0) Seconds Puncture Site Right Brachial ABG pH 7.42 (7.35-7.45) ABG pCO2 31 L (32.0-48.0) mmHg ABG pO2 62 L (83-108) mmHg ABG HCO3 20 (20-26) mEq/L ABG O2 Saturation 91 (91-98) % ABG Base Excess -4 L (-3-3) VBG pH 6.95 L (7.33-7.66) VBG pCO2 59 H (36-56) mmHg VBG pO2 44 (15-58) mmHg VBG O2 Sat (Lily) 46 L (96-97) % VBG Base Excess -18 L (-3-3) FiO2 100 % Sodium 146 H (136-145) mMol/L Potassium 6.0 H D (3.4-5.1) mMol/L Chloride 115 H (98-107) mMol/L Carbon Dioxide 14.0 L* (20.0-31.0) mMol/L Anion Gap 17 H (7-16) BUN 57 H (9-23) mg/dL Creatinine 1.7 H (0.6-1.3) mg/dL Estim Creat Clear Calc 18.0 L (>60) mL/min eGFR 30 L (60 - ) See Note BUN/Creatinine Ratio 34 H (12-20) Ratio Glucose 194 H D (74-106) mg/dL Calculated Osmolality 311 H (275-295) Lactic Acid 11.5 H* (0.4-2.0) mMol/L Calcium 7.7 L (8.3-10.6) mg/dL Corrected Calcium 8.2 L (8.5-10.1) mg/dL Total Bilirubin 0.8 (0.3-1.2) mg/dL AST 465 H (0-34) U/L ALT 154 H (10-49) U/L Alkaline Phosphatase 94 (46-116) U/L Total Creatine Kinase 93435 H (34-171) U/L Troponin I (0.0-0.045) ng/mL Total Protein 5.7 (5.7-8.2) gm/dL Albumin 3.4 (3.4-4.8) gm/dL Globulin 2.3 (2.3-3.5) gm/dL Albumin/Globulin Ratio 1.5 (1.2-2.2) Beta-Hydroxybutyrate/Acetoacetate 1.7 H (<0.6) mmol/L Procalcitonin (0.0-0.49) ng/ml Ur Collection Type Urine Color (Lt Yel-Yel) Urine Clarity (Clear/Hazy) Urine pH (5.0-7.0) Ur Specific [place] (1.001-1.035) Urine Protein (Neg - Trace) Urine Glucose (UA) (Negative) Urine Ketones (Negative) Urine Blood (Negative) Urine Nitrite (Negative) Urine Bilirubin (Negative) Urine Urobilinogen (Auto) (0.0-1.0) mg/dL Ur Leukocyte Esterase (Negative) Urine RBC (0-3) /hpf Urine WBC (0-5) /hpf Ur Squamous Epith Cells (0-5) /hpf Urine Bacteria (None) Stool Occult Blood (Negative) Salicylates 3.5 mg/dL Urine Opiates Screen (Negative) Urine Fentanyl Screen (Negative) Acetaminophen 2.2 L (10.0-20.0) mcg/mL Ur Barbiturates Screen (Negative) U Amphetamin/Meth Scrn (Negative) U Benzodiazepines Scrn (Negative) U Cocaine Metab Screen (Negative) U Marijuana (THC) Screen (Negative) Ethyl Alcohol (0-10.0) mg/dL Hepatitis A IgM Ab (Non React) Hep Bs Antigen (Non React) Hep B Core IgM Ab (Non React) Hepatitis C Antibody (Non React) Blood Type Antibody Screen Crossmatch Blood Bank Wristband ID Critical Care Time Critical Care Time Critical Care Time: Yes Total Critical Care Time (min.): 45 Attestation: The high probability of sudden, clinically significant deterioration in the patient's condition required the highest level of my preparedness to intervene urgently. The services I provided to this patient were to treat and/or prevent clinically significant deterioration. Services included the following: chart data review, reviewing nursing notes and/or old charts, documentation time, incident response consultant collaboration regarding findings and treatment options, medication orders and management, direct patient care, vital sign assessments and ordering, interpreting and reviewing diagnostic studies and lab tests. Aggregate critical care time includes only time during which I was engaged in work directly related to the patient's care, as described above, whether at bedside or elsewhere in the Emergency Department. It did not include time spent performing other reported procedures or the services of residents, students, nurses or physician assistants. Discharge Plan Plan Patient Disposition: Admit Acute Care w/in Hospital Disposition Comment: ICU Problem List Clinical Impression: Septic shock, EMMY (acute kidney injury), Metabolic acidosis, Rhabdomyolysis
--- NOTE | 2024-06-18 09:40 | EKG_ITS ---
[facility] Test Date: 2024-06-18 Pat Name: ROSELYN EMERSON Department: Room: - Gender: Female Set Decorator: : 1940 Requested By: Eliot Argueta Order Number: [id number] Reading MD: Eliot Argueta Measurements Intervals [place] Rate: 94 P: 73 NC: 148 QRS: 41 QRSD: 82 T: 210 QT: 397 QTc: 499 Interpretive Statements SINUS RHYTHM WITH SINUS ARRHYTHMIA LOW QRS VOLTAGE [QRS DEFLECTION < 0.5/1.0 mV IN LIMB/CHEST LEADS] SEPTAL MYOCARDIAL INFARCTION , OF INDETERMINATE AGE [40+ ms Q WAVE IN V1/V2] MODERATE T-WAVE ABNORMALITY, CONSIDER ANTEROLATERAL ISCHEMIA [-0.1+ mV T-WAVE IN V3-V6] Compared to ECG 05/25/2024 16:38:42 Low QRS voltage now present T-wave abnormality now present Possible ischemia now present Sinus tachycardia no longer present Short NC interval no longer present Myocardial infarct finding still present /store/S0/[id number]/[id number].pdf
[2024-06-18 10:05] LABS: OBS Developer Expiration Date 111726; OBS Developer Lot # 124; OBS Performed By CHATK; OBS QC OK? Yes
[2024-06-18 10:13] LABS: Occult Blood, Stool Positive (Negative)
[2024-06-18] MEDS: SODIUM CHLORIDE 0.9% 500 ML 500 ML 999 ML IV ×3 (10:17→11:35)
[2024-06-18] MEDS: PANTOPRAZOLE INJ 40 MG VIAL 80 MG IV (10:19)
[2024-06-18 10:45] LABS: Lactate (Lactic Acid) 8.4 mMol/L (0.4-2.0)
[2024-06-18 10:47] LABS: Basophils % (Auto) 0 % (0-2.5); Eosinophils % (Auto) 0 % (0-10); Hematocrit 27.6 % (36.0-46.0); Immature Granulocytes % (Auto) 1 % (0-0); Immature Granulocytes Auto 0.22 Thou/mm3 (0.00-0.00); Lymphocytes # (Auto) 0.5 Thou/mm3 (1.0-4.8); Lymphocytes % (Auto) 2 % (10-50); Mean Corpuscular HGB Conc 30.1 g/dl (31.0-37.0); Mean Corpuscular Volume 87 fL (80-100); Monocytes # (Auto) 0.6 Thou/mm3 (0.0-0.8); Monocytes % (Auto) 2 % (0-12); Neutrophils # (Auto) 23.9 Thou/mm3 (1.8-7.7); Neutrophils % (Auto) 95 % (37-80); Nucleated Red Blood Cell # 0.99 Thou/mm3 (0.00-0.00); Nucleated Red Blood Cell % 4 /100 WBC (0); Platelet Count 490 Thou/mm3 (140-440); RDW Standard Deviation 61.6 fL (36.4-46.3); Red Blood Count 3.19 Miln/mm3 (4.00-5.20); White Blood Count 25.2 Thou/mm3 (3.6-11.0)
[2024-06-18 11:01] LABS: INR 1.3 (0.9-1.3); Partial Thromboplastin Time 22.8 Seconds (22.0-36.0); Prothrombin Time 13.9 Seconds (9.0-12.2)
[2024-06-18 11:02] LABS: Collection Type, Urine Clean Catch; RBC,Urine 0 /hpf (0-3); Squamous Epithelial Cell,Urine 0 /hpf (0-5)
[2024-06-18 11:10] LABS: Bacteria,Urine Rare; Bilirubin,Urine Negative (Negative); Blood,Urine 3+ (Negative); Clarity,Urine Clear (Clear/Hazy); Glucose, Urine Trace (Negative); Ketones,Urine 1+ (Negative); Leukocyte Esterase,Urine Negative (Negative); Nitrite,Urine Negative (Negative); PH,Urine 5.5 (5.0-7.0); Protein,Urine 1+ (Neg - Trace); Specific Gravity,Urine 1.018 (1.001-1.035); Urobilinogen,Urine Negative mg/dL (0.0-1.0); WBC,Urine 4 /hpf (0-5)
[2024-06-18 11:11] LABS: Alanine Aminotransferase 139 U/L (10-49); Albumin, Serum 3.5 gm/dL (3.4-4.8); Albumin/Globulin Ratio 1.5 (1.2-2.2); Alcohol, Blood Medical < 3.0 mg/dL (0-10.0); Alkaline Phosphatase 92 U/L (46-116); Anion Gap 21 (7-16); Aspartate Amino Transferase 411 U/L (0-34); BUN/Creatinine Ratio 33 Ratio (12-20); Blood Urea Nitrogen 60 mg/dL (9-23); Calcium 7.6 mg/dL (8.3-10.6); Chloride 107 mMol/L (98-107); Creatinine (Component) 1.8 mg/dL (0.6-1.3); Globulin 2.3 gm/dL (2.3-3.5); Osmolality,Calculated 324 (275-295); Procalcitonin 3.52 ng/ml (0.0-0.49); Sodium 139 mMol/L (136-145); Total Protein 5.8 gm/dL (5.7-8.2); eGFR 28 See Note
[2024-06-18 11:14] LABS: Carbon Dioxide 10.6 mMol/L (20.0-31.0); Glucose 631 mg/dL (74-106); Potassium 6.6 mMol/L (3.4-5.1); Troponin I 0.647 ng/mL (0.0-0.045)
[2024-06-18 11:16] LABS: Hemoglobin 8.3 g/dL (12.0-16.0)
[2024-06-18 11:17] LABS: Color,Urine Lt Yellow (Lt Yel-Yel)
[2024-06-18 11:18] LABS: Amphetamine/Methamp Scrn,U Negative (Negative); Barbiturate Screen,Urine Negative (Negative); Benzodiazepines Screen,Urine Negative (Negative); Benzoylecgonine Screen, Ur Negative (Negative); Fentanyl Screen,Urine Negative (Negative); Opiate Screen,Urine Positive (Negative); THC Screen,Urine Negative (Negative)
[2024-06-18] MEDS: MORPHINE SULF INJ 10 MG/ML VIAL 2 MG IVP (11:29)
[2024-06-18] MEDS: cefTRIAXone/D5w 1gm IV premix 1 GM/50 ML BAG IV (11:35)
[2024-06-18 12:39] LABS: Acetaminophen 2.2 mcg/mL (10.0-20.0); Alanine Aminotransferase 154 U/L (10-49); Albumin, Serum 3.4 gm/dL (3.4-4.8); Albumin/Globulin Ratio 1.5 (1.2-2.2); Alkaline Phosphatase 94 U/L (46-116); Anion Gap 17 (7-16); Aspartate Amino Transferase 465 U/L (0-34); BUN/Creatinine Ratio 34 Ratio (12-20); Bilirubin,Total 0.8 mg/dL (0.3-1.2); Blood Urea Nitrogen 57 mg/dL (9-23); Calcium 7.7 mg/dL (8.3-10.6); Calcium (Corrected) 8.2 mg/dL (8.5-10.1); Chloride 115 mMol/L (98-107); Creatine Kinase 16963 U/L (34-171); Creatinine (Component) 1.7 mg/dL (0.6-1.3); Globulin 2.3 gm/dL (2.3-3.5); Glucose 194 mg/dL (74-106); Osmolality,Calculated 311 (275-295); Salicylate 3.5 mg/dL; Sodium 146 mMol/L (136-145); Total Protein 5.7 gm/dL (5.7-8.2); eGFR 30 See Note
--- NOTE | 2024-06-18 12:44 | XR_ITS ---
Examination: CT brain head without contrast. 2-D sagittal coronal reconstructions Date and time of exam:June 18, 2024 1300 hours Comparison May 25, 2024 INDICATIONS: Altered mental status sepsis today CTDI: vol (mGy):43 DLP: (mGycm):884 Technique: Multiple CT axial sections of the brain have been obtained, 5 mm slice thickness. Contrast has not been administered. 2-D sagittal, coronal reconstructions have been obtained Low dose protocols were performed. One or more of the following dose reduction techniques were used; automated exposure control, adjustment of the mA and/or KV according to patient size, use of iterative reconstruction technique. Findings: No significant ventricular enlargement. Intra-axial or extra-axial hemorrhage density is not seen. No mass effect or midline shift Basal cisterns are not remarkable. Fourth ventricle is midline. Cranial vault intact. Impression: Negative for acute hemorrhage, mass effect or midline shift Advise clinical correlation and follow-up accordingly
--- NOTE | 2024-06-18 12:50 | XR_ITS ---
Examination: CT chest, without intravenous contrast. CT abdomen, without intravenous contrast. CT pelvis, without intravenous contrast. 2-D sagittal and coronal reconstructions. 3-D reconstructions. Date and time of exam:June 18, 2024 1311 hours INDICATIONS: Altered mental status with sepsis today COMPARISON: December 24, 2022 CTDI vol (mgy) 6.59 DLP (MGycm)403 Technique: Multiple CT images, 3.0 mm slice thickness, obtained chest, abdomen, pelvis, with the high-resolution 64 slice scanner.. Sagittal and coronal 2-D reconstructions are obtained. 3-D reconstructions Low dose protocols were performed. One or more of the following dose reduction techniques were used; automated exposure control, adjustment of the mA and/or KV according to patient size, use of iterative reconstruction technique. Findings: Thoracic aortic calcification no aneurysmal dilatation Main pulmonary artery segment measures 40 mm No paratracheal tracheobronchial or bronchopulmonary adenopathy COPD with multiple areas of airspace destruction Prominent central pulmonary arteries 15 mm spiculated pulmonary mass left lower lobe No pneumonia or pulmonary edema Mild to moderate enlargement left atrium left ventricle Heavy coronary artery calcification No visualized liver or splenic lesion No gallstones Common hepatic duct 5 mm No pancreatic mass Heavy abdominal aortic calcification No bowel obstruction No pericecal inflammatory change Distended urinary bladder Abundant stool in the rectum with thickening the rectal wall No pelvic mass Mild increased density in the retroperitoneal fat in the pelvis, axial image 186 Severe osteopenia with chronic severe compression T10 IMPRESSION: COPD Pulmonary artery hypertension 15 mm spiculated pulmonary mass left lower lobe, differential would include pulmonary edema Increased density in the retroperitoneal fat in the pelvis which may indicate infectious or inflammatory process, recommend pelvic sonography follow-up Abundant stool in the rectum with presumed proctitis pattern Distended urinary bladder
[2024-06-18 13:25] LABS: Reflex Lactate? Y
[2024-06-18 13:39] LABS: Base Excess, Venous -18 (-3-3); O2 Saturation, Venous 46 % (96-97); PCO2, Venous 59 mmHg (36-56); PO2, Venous 44 mmHg (15-58); pH, Venous 6.95 (7.33-7.66)
[2024-06-18 13:41] LABS: Lactic Acid, 3 HR 11.5 mMol/L (0.4-2.0)
[2024-06-18 13:47] LABS: Beta Hydroxybutyrate 1.7 mmol/L (<0.6)
--- NOTE | 2024-06-18 13:56 | XR_ITS ---
Examination: CTA abdomen, with intravenous contrast. CTA pelvis, with intravenous contrast. 2-D sagittal and coronal reconstructions. 3-D reconstructions. Date and time of exam: June 18, [address] chest abdomen pelvis without contrast June 18, 2024 0111 hrs. Indications: Generalized abdominal pain blood in the stool today CTDI vol (mgy) 9.19 DLP (MGycm) 448 Technique: Multiple CTA images, 2.0 mm slice thickness, obtained abdomen, pelvis, with the high-resolution 64 slice scanner. 60 cc Isovue-300 is administered intravenously. Sagittal and coronal 2-D reconstructions are obtained. 3-D reconstructions, angiographic images are obtained. 3-D postprocessing, including vascular maximum intensity projections. Low dose protocols were performed. One or more of the following dose reduction techniques were used; automated exposure control, adjustment of the mA and/or KV according to patient size, use of iterative reconstruction technique. Findings: No focal liver or splenic lesions Distended gallbladder Small bowel loops show diffuse wall thickening Multiple air droplets in small bowel loops in the wall of small bowel Heavy abdominal aortic calcification Possible peritonitis in the pelvic retroperitoneal fat with additional abnormal small bowel loops in this region Abundant stool in the rectum Impression: Abnormal small bowel loops with fluid distention and wall thickening, air droplets in the wall of the small bowel worrisome for ischemic small bowel Recommend surgical consultation
[2024-06-18] MEDS: CALCIUM CHLORIDE 10% INJ 10 ML SYRG IV (14:18)
[2024-06-18] MEDS: INSULIN HUM REGULAR 1 UNIT/0.01 ML (PER UNIT) 10 UNIT IV (14:19)
[2024-06-18] MEDS: SOD POLYSTYRENE SULFON SUSP 15 GM/60 ML BTL 60 GM PO (14:20)
[2024-06-18] MEDS: DEXTROSE 50%-WATER INJ 50 ML SYRINGE IV (14:20)
[2024-06-18] MEDS: PIPER/TAZO 3.375 GM PREMIX 3.375 GM/50 ML BAG IV ×2 (14:21→23:00)
[2024-06-18] MEDS: SODIUM BICARB INJ 8.4% 1 mEq/ML 50 ML VIAL 50 MEQ IV (14:34)
[2024-06-18] MEDS: Sodium Bicarb Inj 8.4% SYR 50 ML SYRINGE IV (14:42)
[2024-06-18] MEDS: DEXTROSE 10%-WATER 1000 ML 1,000 ML 25 ML IV (15:27)
[2024-06-18] MEDS: DEXTROSE 50%-WATER INJ 50 ML SYRINGE 25 ML IV ×2 (15:28→18:22)
--- NOTE | 2024-06-18 15:32 | PC.NURSE ---
DOCTOR CHAUDHARY AT BEDSIDE FOR EVALUATION
--- NOTE | 2024-06-18 15:54 | PD.RESHP ---
Documentation for date of: 06/18/24 HPI History of Present Illness History of present illness: 83 yo F with PMHx HTN, COPD, asthma, HTN, HFpEF, depression, anxiety, presented in the ED brought in by EMS for altered mental status after she was found down at home by her daughter. Patient is unable to provide a history, only mumbling to questions. Primary history provided by EMS as family contact was attempted but no answer. Of note patient recently came to ED 1 week ago for a fall and was diagnosed with a sprained L ankle. Apparently patient lives at home with her daughter. EMS reports patient was down on the floor when they arrived, she was loaded onto the ambulance and her glucose was in the 20s. 1 amp D50 was administered. Patient presented in the ED and labs significant for hyperkalemia of 6, UA with 3+ blood and no RBC, lactate 8.4 uptrended to 11.5 on recheck, procalcitonin of 3.52, transaminitis, CK of 17k. Patient was treated for hyperkalemia with calcium chloride, insulin 10U IV. FH: Prostate cancer (patient's father) Surgical Hx: Carotid endarectomy, Social Hx: Tobacco 1PPD 60+ years, no alcohol or drug use Travel Hx: No recent travel Review of Systems Review of Systems Systems Reviewed: All systems reviewed, normal except as documented Constitutional Constitutional: Reports system reviewed and no additional complaints, except as documented Eyes Eyes: Reports system reviewed and no additional complaints, except as documented ENT Ears, Nose, Mouth, and Throat: Reports system reviewed and no additional complaints, except as documented Cardiovascular Cardiovascular: Denies chest pain and Denies dyspnea Respiratory Respiratory: Denies dyspnea Gastrointestinal Gastrointestinal: Reports abdominal pain Musculoskeletal Musculoskeletal: Reports back pain Neurologic Neurologic: Reports system reviewed and no additional complaints, except as documented Past Medical History Past Medical History NEUROLOGIC: Positive Migraine CARDIAC: Positive Congestive Heart Failure and Hypertension RESPIRATORY: Positive Chronic Obstructive Pulmonary Disease (COPD) and Asthma MUSCULOSKELETAL: Positive Osteoporosis PSYCHO/SOCIAL: Positive Depression and Anxiety Exam Vital Signs Temp Pulse Resp BP Pulse Ox O2 Del Method O2 Flow Rate 97.5 F 109 H 19 178/77 H 100 Nasal Cannula 4 06/18/24 09:35 06/18/24 15:01 06/18/24 15:01 06/18/24 15:01 06/18/24 15:01 06/18/24 15:01 06/18/24 15:01 Constitutional Constitutional: no acute distress, cachectic, chronically ill appearing and disheveled Comments: Patient lying on right side hunched in bed Routine HEENT Exam Head: Present normocephalic and atraumatic Eye: Present EOMI and PERRL ENT: Present mucous membranes dry and external ear normal Routine Neck Exam Neck: Present supple and trachea midline; Absent JVD Routine Respiratory Exam Respiratory: Present no resp distress, decreased breath sounds and diminished air movement Routine Cardiovascular Exam Cardiovascular: Present S1, S2 and tachycardia; Absent JVD Routine Abdominal Exam Abdominal: Present soft and tenderness; Absent distended or rebound Routine Extremities Exam Extremities: Present cyanosis and extremity cold to touch Routine Skin Exam Skin: Present cyanosis, dry, wounds (Right hip with skin breakdown) and ecchymosis Routine Neurological Exam Neurological: Present alert; Absent oriented X3 (oriented to person and place), sensory deficit or motor deficit Results: Labs 06/19/24 04:44 06/19/24 04:44 Labs: Short CBC 06/18/24 Range/Units 10:10 WBC 25.2 H (3.6-11.0) Thou/mm3 Hgb 8.3 L (12.0-16.0) g/dL Hct 27.6 L (36.0-46.0) % Plt Count 490 H D (140-440) Thou/mm3 BMP 06/18/24 06/18/24 10:10 11:41 Sodium 139 146 H Potassium 6.6 H* 6.0 H D Chloride 107 115 H Carbon Dioxide 10.6 L* 14.0 L* BUN 60 H 57 H Creatinine 1.8 H 1.7 H Glucose 631 H* 194 H D Calcium 7.6 L 7.7 L Cardiac Enzymes 06/18/24 06/18/24 Range/Units 10:10 11:41 Total Creatine Kinase 90285 H (34-171) U/L Troponin I 0.647 H* (0.0-0.045) ng/mL Liver Function 06/18/24 06/18/24 Range/Units 10:10 11:41 Total Bilirubin 1.0 0.8 (0.3-1.2) mg/dL AST 411 H 465 H (0-34) U/L ALT 139 H 154 H (10-49) U/L Alkaline Phosphatase 92 94 (46-116) U/L Albumin 3.5 3.4 (3.4-4.8) gm/dL Urine 06/18/24 Range/Units 10:35 Urine Color Lt Yellow (Lt Yel-Yel) Urine Clarity Clear (Clear/Hazy) Urine pH 5.5 (5.0-7.0) Ur Specific [place]ral 1.018 (1.001-1.035) Urine Protein 1+ A (Neg - Trace) Urine Glucose (UA) Trace (Negative) ABG Interpretation ABG results: 06/18/24 13:32 VBG pH 6.95 L VBG pCO2 59 H VBG pO2 44 VBG Base Excess -18 L Quality Measures Quality Measures sepsis Current suspected stage: sepsis Possible source: pulmonary Blood cultures ordered: completed in ED Antibiotic ordered: Yes Advance care planning discussed with:: other (unable to contact family and discuss ACP) Medications Home Medications and Allergies Home Medications ?Medication ?Instructions ?Recorded ?Confirmed ?Type hydrocodone 10 mg-acetaminophen 1 tab PO BID #0 tabs 08/11/13 01/08/23 History 325 mg tablet amitriptyline 25 mg tablet 25 mg PO HS 04/22/21 01/08/23 History atorvastatin 10 mg tablet 10 mg PO QPM 04/22/21 01/08/23 History tizanidine 4 mg tablet 4 mg PO Q8HR PRN Dizziness 04/22/21 01/08/23 History clopidogrel 75 mg tablet (Plavix) 75 mg PO QDAY 12/25/22 01/08/23 History lansoprazole 30 mg capsule,delayed 30 mg PO QDAY 12/25/22 01/08/23 History release (Prevacid) montelukast 10 mg tablet 10 mg PO QDAY 12/25/22 01/08/23 History (Singulair) diclofenac sodium 75 mg 75 mg PO BID 01/08/23 01/08/23 History tablet,delayed release meclizine 12.5 mg tablet 12.5 mg PO TID PRN Dizziness 01/08/23 01/08/23 History metoprolol succinate 25 mg 25 mg PO QDAY 01/08/23 01/08/23 History tablet,extended release 24 hr misoprostol 200 mcg tablet 200 mcg PO BID 01/08/23 01/08/23 History pregabalin 100 mg capsule 100 mg PO BID 01/08/23 01/08/23 History sertraline 100 mg tablet 100 mg PO QDAY 01/08/23 01/08/23 History Allergies Allergy/AdvReac Type Severity Reaction Status Date / Time No Known Allergies Allergy Verified 03/09/24 14:01 Visit Medications Dextrose (Dextrose 50%-Water Inj 50 Ml Syringe) 25 ml IV Q15MIN PRN PRN Reason: BG 50-70 responsive npo pt Stop: 07/18/24 12:50 Last Admin: 06/18/24 15:28 Dose: 25 ml Dextrose (Dextrose 50%-Water Inj 50 Ml Syringe) 50 ml IV Q15MIN PRN PRN Reason: BG <50 OR BG <70 & pt unresponsive Stop: 07/18/24 12:50 Glucagon (Glucagon Inj 1 Mg Vial) 1 mg IM Q15MIN PRN PRN Reason: BG <70, and no IV access Dextrose (D10w 1000 Ml) 1,000 mls @ 100 mls/hr IV .Q10H TAWNY Stop: 06/18/24 22:59 Last Admin: 06/18/24 14:43 Dose: Not Given Sodium Bicarbonate 88.23 meq/ (Dextrose) 588.23 mls @ 125 mls/hr IV .Q4H43M TAWNY Stop: 07/18/24 14:59 Sodium Bicarbonate 88.23 meq/ (Dextrose) 588.23 mls @ 125 mls/hr IV .Q4H43M TAWNY Stop: 07/18/24 19:57 Dextrose (D10w 1000 Ml) 1,000 mls @ 25 mls/hr IV .Q24H TAWNY Stop: 06/19/24 15:15 Last Admin: 06/18/24 15:27 Dose: 25 mls/hr Discontinued Medications Calcium Chloride (Calcium Chloride 10% Inj 10 Ml Syrg) 10 ml IV X1 ONE Stop: 06/18/24 12:52 Last Admin: 06/18/24 14:18 Dose: 10 ml Dextrose (Dextrose 50%-Water Inj 50 Ml Syringe) 50 ml IV X1 ONE Stop: 06/18/24 12:52 Last Admin: 06/18/24 14:20 Dose: 50 ml Sodium Chloride (Ns) 500 mls @ 999 mls/hr IV .Q31M ONE Stop: 06/18/24 10:09 Last Infusion: 06/18/24 11:36 Dose: Infused Sodium Chloride (Ns) 500 mls @ 999 mls/hr IV .Q31M ONE Stop: 06/18/24 11:17 Last Infusion: 06/18/24 12:07 Dose: Infused Sodium Chloride (Ns) 500 mls @ 999 mls/hr IV .Q31M ONE Stop: 06/18/24 11:55 Last Infusion: 06/18/24 12:07 Dose: Infused Ceftriaxone Sodium/Dextrose (Rocephin/D5w 1gm Iv Premix) 1 gm in 50 mls @ 100 mls/hr IV X1 ONE Stop: 06/18/24 11:54 Last Infusion: 06/18/24 12:06 Dose: Infused Piperacillin/Tazobactam/Dextrose (Zosyn) 3.375 gm in 50 mls @ 100 mls/hr IV X1 ONE Stop: 06/18/24 14:27 Last Infusion: 06/18/24 15:33 Dose: Infused Sodium Bicarbonate 150 meq/ (Dextrose/Sodium Chloride) 650 mls @ 125 mls/hr IV .Q5H12M TAWNY Stop: 07/18/24 19:56 Insulin Human Regular (Insulin Hum Regular 1 Unit/0.01 Ml (Per Unit)) 10 unit IV X1 ONE Stop: 06/18/24 12:52 Last Admin: 06/18/24 14:19 Dose: 10 unit Morphine Sulfate (Morphine Sulf Inj 10 Mg/Ml Vial) 2 mg IVP X1 ONE Stop: 06/18/24 10:40 Last Admin: 06/18/24 11:29 Dose: 2 mg Pantoprazole Sodium (Pantoprazole Inj 40 Mg Vial) 80 mg IV X1 ONE Stop: 06/18/24 09:41 Last Admin: 06/18/24 10:19 Dose: 80 mg Sodium Bicarbonate (Sodium Bicarb Inj 8.4% Syr 50 Ml Syringe) 50 ml IV X1 ONE Stop: 06/18/24 12:52 Last Admin: 06/18/24 14:42 Dose: 50 ml Sodium Bicarbonate (Sodium Bicarb Inj 8.4% 1 Meq/Ml 50 Ml Vial) 50 meq IV X1 ONE Stop: 06/18/24 14:13 Last Admin: 06/18/24 14:34 Dose: 50 meq Sodium Bicarbonate (Sodium Bicarb Inj 8.4% Syr 50 Ml Syringe) 50 ml IV X1 ONE Stop: 06/18/24 14:32 Last Admin: 06/18/24 14:44 Dose: Not Given Sodium Polystyrene Sulfonate (Sod Polystyrene Sulfon Susp 15 Gm/60 Ml Btl) 60 gm PO X1 ONE Stop: 06/18/24 12:52 Last Admin: 06/18/24 14:20 Dose: 60 gm Assessment & Plan Plan 83F bedbound with PMHx HFpEF, HTN, COPD, asthma admitted to ICU for shock in setting of rhabdomyolysis due to being down for prolonged time. Neuro: #Altered mental status in setting of shock Unknown baseline mentation See below for treatment of shock CVS: #Troponinemia Mild elevation at 0.647, uptrended to 0.96, likely type 2 demand ischemia in setting of shock Will continue to recheck troponin to ensure it is downtrending #Shock, etiology unclear Cardiogenic: POCUS revealed preserved EF ~45%, no RV strain, no clear valvulopathies, underfilled RV - unlikely cardiogenic etiology Obstructive: No tracheal deviation, pericardial effusion, PTX - unlikely obstructive etiology Distributive: Unlikely due to physical exam findings of cool cyanotic extremities, unable to be ruled out however Hypovolemic: Patient has had poor oral intake with only 1.5L NS resuscitation in ED. Urine output has been adequate. Will give another liter of LR and reassess, may require additional fluid resuscitation #CHF, EF 40-45% Last TTE performed in 12/2022 Will repeat TTE POCUS shows unchanged EF from prior #Hx of carotid endarterectomy Patient on Plavix assumedly from history of CEA, hold for now as patient is NPO Resp: #COPD on home O2, stable #Possible PNA Procalcitonin elevated at 3.52 Rocephin x1 given in ED Rocephin 1g qd (06/18 - ) and azithromycin 250mg qd (06/18 - ) #15mm spiculated pulmonary nodule in LLL Nodule was not spotted in CT chest performed in 12/2022 Will need f/u with repeat CT scan in 3 months, PET-CT or biopsy per Fleischner Society guidelines GI: #r/o mesenteric ischemia Benign abdomen on exam, per ED physician patient was exquisitely ttp on their exam earlier today. Consulted general surgery for concern of mesenteric ischemia CT abd/pelvis without contrast significant for increased density suggesting inflammatory/infectious etiology CT Abd/Pelvis with contrast ordered by ED to rule out mesenteric ischemia, may shed light on above hyperdensity noted by radiologist Surgery was consulted by ED and is following Zosyn 3.375mg q8 (06/18 - ) Renal: #Rhabdomyolysis #Lactic acidosis Recent ankle sprain, patient likely fell again and was left on ground for prolonged period Received 1.5L NS by ED. Patient does have good UOP after Lopes insertion and initial fluid bolus. Continue with aggressive fluid resuscitation (Starting with 1L LR bolus) to maintain UOP 2-3mg/kg/hr (~150mL/hr) Trend lactate Nephrology consulted by ED #Hyperkalemia, resolved In setting of rhabdo Will follow CMP Endo: #Transaminitis Likely in the setting of rhabdomyloysis Will check hepatitis panel Will trend in am #Hyperglycemia, resolved #Elevated beta hydroxybutyrate #Hypoglycemia Glucose shot up to 600s after treatment by EMS with D50 Again became hypoglycemic after hyperkalemic treatment with insulin Patient on D5W gtt at 100mL/hr Possible setting of starvation ketosis, will recheck hydroxybutyrate MSK: #Extensive ecchymosis #Skin breakdown on right hip Living situation likely unsafe for patient and she is a serious fall risk Heme/ID: #Chronic normocytic anemia, stable Likely ACD PPx: DVT: Heparin 5,000U q12hr GI: not indicated at this time, NPO Code status: Full - attempted to contact family but they were not able to be reached Patient is likely unable to live at home in current situation. Apparently lives with daughter but daughter is not picking up phone and patient was left on the ground for prolonged time after falling Will need social research assistant and support in improving/changing her living situation after this hospitalization Attending Provider Attestation/Addendum Patient seen and examined with resident team agree with above. In brief this is an 83-year-old female admitted to the ICU for normotensive shock and evidence of poor tissue perfusion. She also has rhabdomyolysis. On exam her digits of both hands are cool and dusky. Bilateral feet are cool to touch as well as dusky and ischemic in appearance. The patient is awake alert and oriented x 2, chest exam is clear the patient appears to have some mild abdominal discomfort though not severe. Her labs are notable for significant lactic acidosis with a significant elevation in her CK. She does have tissue breakdown on her right hip from apparently lying on that side. It is felt that her rhabdo is due to pressure and poor mobility. She will be started on IV fluids 150 to 200 cc an hour to maintain a urinary output greater than 100 cc an hour. Will follow-up with repeat labs. Her initial hemoglobin was 8.3 which is down from 10.8 approximately 2 to 3 weeks ago. Will repeat a CBC. There is no evidence of active bleeding at this moment in time. She did undergo a surgical eval for concern of mesenteric ischemia and a CTA with low-dose contrast due to her acute kidney injury has been ordered in the ER we will follow-up with these results. Her blood pressure is currently elevated and there is no requirement for vasopressors. Case discussed with ICU team and ER Labs, imaging and records reviewed ~78ccmin required for eval, exam, review, intervention, discussion and formulation of plan of care for his critically ill patient with rhabdo and severe lactic acidosis at high risk for further and ongoing decompensation.
--- NOTE | 2024-06-18 16:07 | ECHO_ITS ---
Transthoracic Echo Report Ht (in): 61 Wt (lb): 100 Exam Location: Echo Lab Status: Emergency End User Consultant: Jena Ingram Indications: Procedure Performed: BP: 125 / 48 HR: 85 Technical Quality: Technically difficult study MEASUREMENTS (Male / Female) Normal Values 2D ECHO LV Diastolic Diameter PLAX 4.2 cm 4.2 - 5.9 / 3.9 - 5.3 cm LV Systolic Diameter PLAX 3.0 cm IVS Diastolic Thickness 0.9 cm 0.6 - 1.0 / 0.6 - 0.9 cm LVPW Diastolic Thickness 1.0 cm 0.6 - 1.0 / 0.6 - 0.9 cm LV Relative Wall Thickness 0.4 LVOT Diameter 1.8 cm Aortic Root Diameter 2.8 cm LA Systolic Diameter LX 3.6 cm 3.0 - 4.0 / 2.7 - 3.8 cm LA Volume Index 36.7 cm?/m? 16 - 28 cm?/m? DOPPLER AV Peak Velocity 126.0 cm/s AV Peak Gradient 6.4 mmHg AV Mean Gradient 3.0 mmHg AV Velocity Time Integral 23.7 cm AI Peak Velocity 273.0 cm/s AI Peak Gradient 29.8 mmHg AI Pressure Half Time 330.0 ms LVOT Peak Velocity 85.0 cm/s LVOT Peak Gradient 2.9 mmHg LVOT Velocity Time Integral 19.3 cm LVOT Cardiac Index 2995.7 cm?/min?m? AV Area Cont Eq vti 2.1 cm? AV Area Cont Eq pk 1.7 cm? MV Area PHT 4.0 cm? MR Peak Velocity 397.0 cm/s MR Peak Gradient 63.0 mmHg Mitral E Point Velocity 114.0 cm/s TR Peak Velocity 354.7 cm/s TR Peak Gradient 50.3 mmHg PV Peak Velocity 80.1 cm/s PV Peak Gradient 2.6 mmHg FINDINGS Left Ventricle Normal left ventricular size, wall thickness, systolic function with no obvious regional wall motion abnormalities. Normal left ventricular diastolic filling pattern for age. The ejection fraction is visually estimated at 55 %. Right Ventricle The right ventricle is normal in size and systolic function. The estimated right ventricular systolic pressure, 86 mmHg. RAP 15. Left Atrium The left atrium is normal by two-dimensional, color flow and Doppler imaging with no structural abnormalities, no thrombus formation present. Mildly increased left atrial volume 36.7 mL/m?. Right Atrium The right atrium is normal by two-dimensional imaging, color flow and Doppler imaging with no structural abnormalities, no thrombus formation present. Atrial Septum The interatrial septum appears normal with no evidence of a shunt. Aorta The aorta is normal by two-dimensional, color flow and Doppler interrogation. Mitral Valve Mild mitral regurgitation. Aortic Valve Mild aortic valve regurgitation. Tricuspid Valve There is moderate tricuspid regurgitation. Pulmonic Valve The pulmonic valve is not well visualized. There is no significant pulmonic valve regurgitation. Vessels Dilated inferior vena cava. Pericardium The pericardium is normal by two-dimensional imaging. There is no significant pericardial effusion. CONCLUSIONS Indication: CHF Normal LV size and function. Estimated EF 55-60%. Mild LVH. Diastolic dysfunction present but cannot be graded because of the atrial fibrillation Normal RV size and systolic function. Estimated RVSP 65-70 mmHg - moderate to severely dilated. Mild MR and mildly thickened mitral leaflets. Mild AI. Moderate to severe TR. Dilated IVC. Mildly dilated LA and RA. Ramana Seamanumankevin (Electronically Signed) Final Date: 20 June 2024 16:26
[2024-06-18 16:12] LABS: Base Excess -4 (-3-3); HCO3 20 mEq/L (20-26); Inspired Oxygen, FIO2 100 %; O2 Saturation 91 % (91-98); PCO2 31 mmHg (32.0-48.0); PO2 62 mmHg (83-108); pH, Arterial 7.42 (7.35-7.45)
[2024-06-18 16:14] LABS: Allen Test Not Performed; Puncture Site Right Brachial
--- NOTE | 2024-06-18 17:03 | PD.SURCONS ---
HPI Consult details Consult date: 06/18/24 Reason for consultation narrative: The patient was seen at the request of the ER physician for some abdominal problem History of present illness: Patient has no abdominal pain at all and she was admitted with altered level of consciousness. Patient has a numerous medical problems and is on anticoagulation with Plavix Review of Systems Neurologic Neurologic: Reports system reviewed and no additional complaints, except as documented Meds Home Medications and Allergies Home Medications ?Medication ?Instructions ?Recorded ?Confirmed ?Type hydrocodone 10 mg-acetaminophen 1 tab PO BID #0 tabs 08/11/13 01/08/23 History 325 mg tablet amitriptyline 25 mg tablet 25 mg PO HS 04/22/21 01/08/23 History atorvastatin 10 mg tablet 10 mg PO QPM 04/22/21 01/08/23 History tizanidine 4 mg tablet 4 mg PO Q8HR PRN Dizziness 04/22/21 01/08/23 History clopidogrel 75 mg tablet (Plavix) 75 mg PO QDAY 12/25/22 01/08/23 History lansoprazole 30 mg capsule,delayed 30 mg PO QDAY 12/25/22 01/08/23 History release (Prevacid) montelukast 10 mg tablet 10 mg PO QDAY 12/25/22 01/08/23 History (Singulair) diclofenac sodium 75 mg 75 mg PO BID 01/08/23 01/08/23 History tablet,delayed release meclizine 12.5 mg tablet 12.5 mg PO TID PRN Dizziness 01/08/23 01/08/23 History metoprolol succinate 25 mg 25 mg PO QDAY 01/08/23 01/08/23 History tablet,extended release 24 hr misoprostol 200 mcg tablet 200 mcg PO BID 01/08/23 01/08/23 History pregabalin 100 mg capsule 100 mg PO BID 01/08/23 01/08/23 History sertraline 100 mg tablet 100 mg PO QDAY 01/08/23 01/08/23 History Allergies Allergy/AdvReac Type Severity Reaction Status Date / Time No Known Allergies Allergy Verified 03/09/24 14:01 Exam Vital Signs Temp Pulse Resp BP Pulse Ox O2 Del Method O2 Flow Rate 97.1 F 99 16 141/64 H 100 Room Air 4 06/18/24 16:28 06/18/24 16:28 06/18/24 16:28 06/18/24 16:28 06/18/24 16:28 06/18/24 16:28 06/18/24 15:01 Narrative Exam Physical examination revealed an elderly lady who appeared to be in his stated age who is weighing only 100 pounds Routine Abdominal Exam Comments: Examination abdomen does not show any abnormality. Abdomen is soft and has normal bowel sounds. Results Results: Laboratory Laboratory Narrative: Laboratory results show anemia with hemoglobin of 8.3 and acute kidney injury with elevated BUN/creatinine. Assessment & Plan Additional Assessment Additional comments: Impression: Patient does not seem to have any significant abdominal problems. Plan Plan: Obviously we need to resuscitate her and evaluate her further. We will follow her.
[2024-06-18 18:05] LABS: Lactate (Lactic Acid) 8.4 mMol/L (0.4-2.0)
--- NOTE | 2024-06-18 18:09 | PC.NURSE ---
PT BACK FROM CT SCAN
[2024-06-18] MEDS: AZITHROMYCIN INJ 250 MG in SODIUM CHLORIDE 0.9% 250 ML 250 ML IV (19:45)
[2024-06-18 20:05] LABS: Beta Hydroxybutyrate 0.1 mmol/L (<0.6)
[2024-06-18 20:08] LABS: Basophils % (Auto) 0 % (0-2.5); Eosinophils % (Auto) 0 % (0-10); Immature Granulocytes % (Auto) 1 % (0-0); Immature Granulocytes Auto 0.14 Thou/mm3 (0.00-0.00); Lymphocytes # (Auto) 0.4 Thou/mm3 (1.0-4.8); Lymphocytes % (Auto) 2 % (10-50); Mean Corpuscular HGB Conc 30.6 g/dl (31.0-37.0); Mean Corpuscular Hemoglobin 26.2 pg (25.0-35.0); Mean Corpuscular Volume 86 fL (80-100); Monocytes # (Auto) 1.2 Thou/mm3 (0.0-0.8); Monocytes % (Auto) 6 % (0-12); Neutrophils # (Auto) 17.8 Thou/mm3 (1.8-7.7); Neutrophils % (Auto) 91 % (37-80); Nucleated Red Blood Cell # 0.67 Thou/mm3 (0.00-0.00); Nucleated Red Blood Cell % 3 /100 WBC (0); Platelet Count 473 Thou/mm3 (140-440); RDW Standard Deviation 58.7 fL (36.4-46.3); Red Blood Count 2.29 Miln/mm3 (4.00-5.20); White Blood Count 19.6 Thou/mm3 (3.6-11.0)
[2024-06-18 20:12] LABS: Lactate (Lactic Acid) 7.7 mMol/L (0.4-2.0)
--- NOTE | 2024-06-18 20:13 | PC.NURSE ---
pt's had bowel movement, water, dark colored. pt cleaned and provided with new brief.
[2024-06-18 20:18] LABS: Hematocrit 19.6 % (36.0-46.0)
[2024-06-18 20:25] LABS: Anion Gap 15 (7-16); BUN/Creatinine Ratio 35 Ratio (12-20); Blood Urea Nitrogen 53 mg/dL (9-23); Carbon Dioxide 19.9 mMol/L (20.0-31.0); Chloride 117 mMol/L (98-107); Creatinine (Component) 1.5 mg/dL (0.6-1.3); Estimated Creatinine Clearance 20.3 mL/min (>60); Glucose 153 mg/dL (74-106); Osmolality,Calculated 319 (275-295); Potassium 4.3 mMol/L (3.4-5.1); Sodium 152 mMol/L (136-145); eGFR 34 See Note
[2024-06-18 20:47] LABS: Creatine Kinase 29102 U/L (34-171)
[2024-06-18 20:47] LABS: Reflex Lactate? Y
[2024-06-18 21:06] LABS: Hepatitis A Antibody IgM Non Reactive (Non React); Hepatitis B Core Antibody IgM Non Reactive (Non React); Hepatitis B Surface Antigen Non Reactive (Non React); Hepatitis C Antibody Non Reactive (Non React)
[2024-06-18 21:41] LABS: Hematocrit 23.5 % (36.0-46.0)
[2024-06-18 22:20] LABS: Lactic Acid, 3 HR 6.7 mMol/L (0.4-2.0)
[2024-06-18 23:03] LABS: Reflex Lactate? Y
[2024-06-18 23:48] LABS: Troponin I 1.096 ng/mL (0.0-0.045)
[2024-06-19] VITALS (93 sets, daily range): BP systolic 111–169; BP diastolic 43–89; PULSE 66–190; RESP 2–38; TEMP 36.4–37.1; O2SAT 64–100
[2024-06-19 02:57] LABS: Base Excess, Venous -9 (-3-3); O2 Saturation, Venous 60 % (96-97); PCO2, Venous 51 mmHg (36-56); PO2, Venous 35 mmHg (15-58); pH, Venous 7.18 (7.33-7.66)
[2024-06-19 02:58] LABS: Lactate (Lactic Acid) 9.4 mMol/L (0.4-2.0)
[2024-06-19] MEDS: DEXTROSE 5%-WATER 1,000 ML 100 ML IV (03:45)
[2024-06-19 04:17] LABS: Path Review Blood Smear Sent to Pathologist
[2024-06-19 05:29] LABS: Basophils % (Auto) 0 % (0-2.5); Eosinophils % (Auto) 0 % (0-10); Hematocrit 24.8 % (36.0-46.0); Immature Granulocytes % (Auto) 1 % (0-0); Immature Granulocytes Auto 0.12 Thou/mm3 (0.00-0.00); Lymphocytes # (Auto) 0.4 Thou/mm3 (1.0-4.8); Lymphocytes % (Auto) 2 % (10-50); Mean Corpuscular Hemoglobin 26.9 pg (25.0-35.0); Mean Corpuscular Volume 87 fL (80-100); Monocytes # (Auto) 1.3 Thou/mm3 (0.0-0.8); Monocytes % (Auto) 6 % (0-12); Neutrophils # (Auto) 22.1 Thou/mm3 (1.8-7.7); Neutrophils % (Auto) 92 % (37-80); Nucleated Red Blood Cell # 0.45 Thou/mm3 (0.00-0.00); Nucleated Red Blood Cell % 2 /100 WBC (0); Platelet Count 386 Thou/mm3 (140-440); RDW Standard Deviation 55.4 fL (36.4-46.3); Red Blood Count 2.86 Miln/mm3 (4.00-5.20)
[2024-06-19 05:32] LABS: Lactate (Lactic Acid) 9.4 mMol/L (0.4-2.0)
[2024-06-19 05:32] LABS: Base Excess -2 (-3-3); HCO3 22 mEq/L (20-26); Inspired Oxygen, FIO2 25 %; O2 Saturation 99 % (91-98); PCO2 33 mmHg (32.0-48.0); PO2 105 mmHg (83-108); pH, Arterial 7.44 (7.35-7.45)
[2024-06-19 05:40] LABS: Allen Test Performed/OK; Puncture Site Right Radial
[2024-06-19 05:43] LABS: Hemoglobin 7.7 g/dL (12.0-16.0)
[2024-06-19 05:52] LABS: Reflex Lactate? Y
[2024-06-19 06:04] LABS: Alanine Aminotransferase 295 U/L (10-49); Albumin, Serum 3.1 gm/dL (3.4-4.8); Albumin/Globulin Ratio 1.4 (1.2-2.2); Alkaline Phosphatase 128 U/L (46-116); Anion Gap 16 (7-16); Aspartate Amino Transferase 938 U/L (0-34); BUN/Creatinine Ratio 33 Ratio (12-20); Bilirubin,Total 0.5 mg/dL (0.3-1.2); Blood Urea Nitrogen 49 mg/dL (9-23); Calcium 7.8 mg/dL (8.3-10.6); Calcium (Corrected) 8.5 mg/dL (8.5-10.1); Carbon Dioxide 20.5 mMol/L (20.0-31.0); Chloride 116 mMol/L (98-107); Creatinine (Component) 1.5 mg/dL (0.6-1.3); Estimated Creatinine Clearance 20.3 mL/min (>60); Globulin 2.2 gm/dL (2.3-3.5); Glucose 135 mg/dL (74-106); Magnesium 2.6 mg/dL (1.6-2.6); Osmolality,Calculated 316 (275-295); Potassium 3.8 mMol/L (3.4-5.1); Sodium 152 mMol/L (136-145); Total Protein 5.3 gm/dL (5.7-8.2); eGFR 34 See Note
[2024-06-19] MEDS: PIPER/TAZO 3.375 GM PREMIX 3.375 GM/50 ML BAG IV ×3 (06:24→22:49)
[2024-06-19 06:39] LABS: Troponin I 0.958 ng/mL (0.0-0.045)
[2024-06-19 07:52] LABS: Creatine Kinase 30259 U/L (34-171)
[2024-06-19] MEDS: RINGERS LACTATED 1000 ML 1,000 ML 175 ML IV ×3 (08:13→19:15)
[2024-06-19] MEDS: DEXTROSE 5%-WATER 1,000 ML 50 ML IV ×2 (08:13→18:40)
[2024-06-19 08:14] LABS: Reflex Lactate? Y
[2024-06-19] MEDS: HEPARIN SOD INJ 5000 UNIT/ML VIAL SC (09:04)
[2024-06-19] MEDS: cefTRIAXone/D5w 1gm IV premix 1 GM/50 ML BAG IV (09:04)
[2024-06-19 09:39] LABS: Lactic Acid, 3 HR 4.2 mMol/L (0.4-2.0)
--- NOTE | 2024-06-19 10:00 | PD.SURPROG ---
Documentation for date of: 06/19/24 Subjective Subjective Brief History: Patient has no abdominal pain at all and she was admitted with altered level of consciousness. Patient has a numerous medical problems and is on anticoagulation with Plavix Narrative: The patient is reasonably stable in ICU. She does not have any abdominal pain Exam Vital Signs Temp Pulse Resp BP Pulse Ox O2 Del Method O2 Flow Rate 97.8 F 85 20 125/48 L 100 Nasal Cannula 3 06/19/24 04:00 06/19/24 07:05 06/19/24 07:05 06/19/24 06:30 06/19/24 07:05 06/19/24 04:00 06/19/24 07:05 Vital signs are normal Routine Abdominal Exam Comments: Abdomen is soft and does not have much tenderness. Bowel sounds are present but hypoactive compared to yesterday Results Results: Laboratory Laboratory Narrative: Patient's laboratory results show significant abnormality on her lactic acidosis still present. Liver enzymes show elevation Assessment & Plan Assessment Additional comments: Impression: No significant abdominal condition exist at the present time Plan Plan: We shall monitor her closely and will reevaluate her if there is a change in her clinical condition
[2024-06-19] MEDS: RINGERS LACTATED 1000 ML 500 ML 999 ML IV (10:05)
[2024-06-19] MEDS: METOPROLOL TARTRATE INJ 1 MG/ML AMP 5 ML 5 MG IVP (10:47)
--- NOTE | 2024-06-19 12:06 | XR_ITS ---
Examination: Arterial duplex lower extremity study. Date and time of exam: June 19, 2024 1238 hours INDICATIONS: Discoloration and: Feet today Findings: Duplex sonographic imaging of the lower extremity arteries using B-mode/James scale imaging and Doppler spectral analysis and color flow. . Right common femoral artery demonstrates monophasic flow. Right superficial femoral artery demonstrates monophasic flow. Right popliteal artery demonstrates monophasic flow. Right posterior tibial artery demonstrated no flow. Left common femoral artery demonstrates biphasic flow. Left superficial femoral artery demonstrates biphasic flow. Left popliteal artery demonstrates monophasic flow. Left posterior tibial artery demonstrated monophasic flow. Left ankle/brachial index is 0.7. Impression: Severe bilateral peripheral obstructive arterial disease Consider correlation with CTA abdominal aorta iliofemoral runoff post intravenous contrast
[2024-06-19] MEDS: RINGERS LACTATED 500 ML 500 ML 999 ML IV (12:47)
[2024-06-19] MEDS: FUROSEMIDE INJ 10 MG/ML 4ML VIAL 40 MG IVP (12:49)
--- NOTE | 2024-06-19 13:56 | ESCONSULT_ITS ---
RE: ROSELYN EMERSON : 1940 DATE OF CONSULTATION: 06/19/2024 REASON FOR REFERRAL: Hyperkalemia, severe metabolic acidosis, lactic acidosis, and acute kidney injury. REFERRING PHYSICIAN: Dr. Argueta. HISTORY OF PRESENT ILLNESS: This patient is an 83-year-old woman with a past medical history significant for hypertension, COPD, and CHF with reduced ejection fraction of 40-45%. on an Echocardiogram done on 12/26/2023, who presented to the emergency room yesterday after she was found altered by her daughter. The patient was found down at home and EMS was called and brought her to the emergency room yesterday. Upon presentation, the patient was found with [place] hemoglobin [place] 6[place] [address]. Stool guaiac x2 positive. Potassium of 6.6, CO2 10.61, and lactic acid level of 8.4. Initially, the patient was hypoglycemic and became hyperglycemic after glucose. [place] [address] [address] While in the emergency room, she also had an occult fecal blood test done and it turned out to be positive for stool guaiac. The patient received 1 unit of packed RBCs while in the emergency room. She was given an ample amount of IV fluids, and lactic acid started to improve. Eventually, she was admitted to the ICU. Creatinine upon admission was found to be elevated at 1.8 and with IV fluids went down to 1.5 today. Her baseline serum creatinine is 1.1. Her troponin level is also somehow elevated. The patient at home takes Plavix as well as diclofenac. She also had a CTA of the abdomen and pelvis yesterday and it revealed an abdomen with small bowel loops with fluid distention and wall thickening. There were also air droplets in the wall of the small bowel worrisome for ischemic small bowel. The patient continues to be confused; however, he is now making more urine. Creatinine is also down to 1.5. BUN is now at 152. Lactic acid level is at 4.2. PAST MEDICAL HISTORY: Hypertension, COPD, and CHF. ALLERGIES: NO KNOWN DRUG ALLERGIES. CURRENT MEDICATIONS: 1. Acetaminophen 2. Lactated Ringer's solution. 3. Calcium chloride 4. Zosyn 3.375 g IV q. 8. PHYSICAL EXAMINATION: GENERAL: The patient mumbling. VITAL SIGNS: Blood pressure of 129/52, heart rate of 84. HEENT: Anicteric sclerae. Normocephalic. NECK: Supple. No JVD. CHEST AND LUNGS: Symmetrical expansion. Clear breath sounds. HEART: Without murmur. ABDOMEN: Soft. EXTREMITIES: No edema. LABORATORY DATA: Sodium 152, potassium 3.8, chloride 118, CO2 20.5, BUN 49, creatinine 1.5, lactic acid 4.2, albumin 3.1. Hemoglobin 7.7, WBC 33697, platelet count 286,000. [place] [address]. AST 938, ALT 295, alkaline phosphatase 128. ASSESSMENT: 1. Acute kidney injury, currently non-oliguric, most likely secondary to hemodynamic instability, now improved with IV fluids. 2. Hyperkalemia secondary to severe metabolic acidosis. 3. Severe metabolic acidosis secondary to lactic acidosis, possibly type A due to severe anemia, possibly converting to type B due to liver problem. 4. Ischemic colitis also causing lactic acidosis. 5. History of congestive heart failure with EF of only 40-45% on 2D echocardiogram done on 12/26/2023. 6. Hypernatremia, iatrogenic. 7. Altered level of consciousness secondary to electrolyte imbalance, lactic acidosis. PLAN: I agree with aggressive fluid resuscitation and blood transfusion. The patient might also have severely depressed ejection fraction causing poor perfusion to the organs leading to type A lactic acidosis. Continue monitoring electrolytes, urine output, and kidney function on daily basis. Continue to monitor lactic acidosis. There is no acute need for dialysis at the moment given controlled lactic acidosis, which has improved since IV fluid resuscitation and kidney function improving with volume resuscitation. I will monitor her closely. DT: 12:59:49 TT: 13:45:00 Ref: [id number] - TID: [id number] MTDD
--- NOTE | 2024-06-19 14:57 | PC.SS ---
Initial assessment: this is 83 year old female admitted to ICU for AMS. Patient resides at home with her daughter, Meghna. Confirmed home address. Patient utilized a walker and cane at home to assist with ambulation. Patient also utilized home CPAP machine during the night time. Patient follows [facility] for primary care. Patient pharmacy is [facility] in [place] on [address]. Patient has an [facility] provider who provides 72 hrs a month, 4 x a week. Per daughterMeghna she will be the primary point of contact for the patient in case of an emergency. Patient's daughter is considering SNF, however wants PT evaluation to determine decision. D/c plan: Home vs SNF Next of kin: daughterMeghna
[2024-06-19] MEDS: DEXTROSE 50%-WATER INJ 50 ML SYRINGE 25 ML IV (16:02)
[2024-06-19 16:17] LABS: Creatine Kinase 29888 U/L (34-171)
--- NOTE | 2024-06-19 16:32 | PD.RESPRO ---
Documentation for date of: 06/19/24 Subjective Subjective Interval history: No overnight events, this AM fluids increased to LR 175 cc/hr, D5W 50cc/hr, monitoring hourly urine output has mantianed above 100cc /hr after lasix was given. We will continue to monitor her hourly urine output and give lasix as needed. Mentation improving patient awake and oriented x2 at baseline per family Severe PAD noted on physical exam diminished/absent pedal pulses, doppler showed severe PAD, courtesy called vascular surgeon Dr Pruitt who would gladly see patient outpatient as this is a more chronic condition. Holding heparin at this time since patient's hemoglobin has dropped from her baseline at 10 to 6 last night, requiring a transfsion. Post transfusion H&H 7.7 Exam Vital Signs Temp Pulse Resp BP Pulse Ox O2 Del Method O2 Flow Rate 97.8 F 97 21 H 148/65 H 80 L Nasal Cannula 3 06/19/24 04:00 06/19/24 15:30 06/19/24 15:30 06/19/24 15:30 06/19/24 15:30 06/19/24 04:00 06/19/24 07:05 Narrative Exam GENERAL: Awake, alert and oriented. No acute distress. HEENT: Normocephalic, atraumatic and nontender.? Pupils are equal and reactive to light and accommodation.? Oral mucosa dry NECK: Supple without adenopathy. Traquea midline. Nontender, carotid pulse 2+ bilaterally without bruits, no JVD.? CHEST: Heart rate and rythm normal, no murmurs, gallops auscultated. S1 & 2 normal insensity. Nontender on palpation, no deformity and no crepitus. LUNGS: Lung sounds are clear.? No wheezing, rales or ronchi.? No intercostal subcostal retraction. Room air ABDOMEN: Soft,symmetric , nontender, no guarding or rebound tenderness. No abnormal masses palpated.? No pulsatile masses or bruits.? Bowel sounds are normoactive in all 4 quadrants. EXTREMITIES: Nontender.? No pitting edema.? Cyanotic, absent bilateral pedal pulses, palpable popliteal. Multiple varicose veins NEURO:? Cranial nerves intact.? There is no focalization.? GCS is 15. Objective Labs 06/20/24 06:41 06/20/24 06:41 Labs: Laboratory Results - last 24 hr 06/18/24 06/18/24 06/18/24 10:10 16:39 19:56 WBC 19.6 H D RBC 2.29 L Hgb 6.0 L* D Hct 19.6 L* MCV 86 MCH 26.2 MCHC 30.6 L RDW Std Deviation 58.7 H Plt Count 473 H Neut % (Auto) 91 H Lymph % (Auto) 2 L Adams % (Auto) 6 Eos % (Auto) 0 Baso % (Auto) 0 Neut # (Auto) 17.8 H Lymph # (Auto) 0.4 L Adams # (Auto) 1.2 H Eos # (Auto) 0.0 Baso # (Auto) 0.0 Immature Gran # (Auto) 0.14 H Absolute Nucleated RBC 0.67 H Immature Gran % 1 H Nucleated RBC % 3 H Smear Path Review Sent to Pathologist Puncture Site ABG pH ABG pCO2 ABG pO2 ABG HCO3 ABG O2 Saturation ABG Base Excess VBG pH VBG pCO2 VBG pO2 VBG O2 Sat (Lily) VBG Base Excess Oxygen Liter Flow FiO2 Sodium 152 H Potassium 4.3 D Chloride 117 H Carbon Dioxide 19.9 L Anion Gap 15 BUN 53 H Creatinine 1.5 H Estim Creat Clear Calc 20.3 L eGFR 34 L BUN/Creatinine Ratio 35 H Glucose 153 H Calculated Osmolality 319 H Lactic Acid 8.4 H* 7.7 H* Calcium 8.0 L Corrected Calcium Magnesium Total Bilirubin AST ALT Alkaline Phosphatase Total Creatine Kinase 00669 H D Troponin I 0.960 H* D Total Protein Albumin Globulin Albumin/Globulin Ratio Beta-Hydroxybutyrate/Acetoacetate 0.1 Hepatitis A IgM Ab Non Reactive Hep Bs Antigen Non Reactive Hep B Core IgM Ab Non Reactive Hepatitis C Antibody Non Reactive Blood Type A Positive Antibody Screen NEGATIVE Crossmatch See Detail Blood Bank Wristband ID Yes 06/18/24 06/18/24 06/18/24 21:03 22:00 22:07 WBC RBC Hgb 7.0 L Hct 23.5 L MCV MCH MCHC RDW Std Deviation Plt Count Neut % (Auto) Lymph % (Auto) Adams % (Auto) Eos % (Auto) Baso % (Auto) Neut # (Auto) Lymph # (Auto) Adams # (Auto) Eos # (Auto) Baso # (Auto) Immature Gran # (Auto) Absolute Nucleated RBC Immature Gran % Nucleated RBC % Smear Path Review Puncture Site Cancelled ABG pH Cancelled ABG pCO2 Cancelled ABG pO2 Cancelled ABG HCO3 Cancelled ABG O2 Saturation Cancelled ABG Base Excess Cancelled VBG pH VBG pCO2 VBG pO2 VBG O2 Sat (Lily) VBG Base Excess Oxygen Liter Flow Cancelled FiO2 Cancelled Sodium Potassium Chloride Carbon Dioxide Anion Gap BUN Creatinine Estim Creat Clear Calc eGFR BUN/Creatinine Ratio Glucose Calculated Osmolality Lactic Acid 6.7 H* Calcium Corrected Calcium Magnesium Total Bilirubin AST ALT Alkaline Phosphatase Total Creatine Kinase Troponin I 1.096 H* Total Protein Albumin Globulin Albumin/Globulin Ratio Beta-Hydroxybutyrate/Acetoacetate Hepatitis A IgM Ab Hep Bs Antigen Hep B Core IgM Ab Hepatitis C Antibody Blood Type Antibody Screen Crossmatch Blood Bank Wristband ID 06/19/24 06/19/24 06/19/24 02:38 04:44 05:08 WBC 24.0 H RBC 2.86 L Hgb 7.7 L Hct 24.8 L MCV 87 MCH 26.9 MCHC 31.0 RDW Std Deviation 55.4 H Plt Count 386 D Neut % (Auto) 92 H Lymph % (Auto) 2 L Adams % (Auto) 6 Eos % (Auto) 0 Baso % (Auto) 0 Neut # (Auto) 22.1 H Lymph # (Auto) 0.4 L Adams # (Auto) 1.3 H Eos # (Auto) 0.0 Baso # (Auto) 0.0 Immature Gran # (Auto) 0.12 H Absolute Nucleated RBC 0.45 H Immature Gran % 1 H Nucleated RBC % 2 H Smear Path Review Puncture Site Right Radial ABG pH 7.44 ABG pCO2 33 ABG pO2 105 D ABG HCO3 22 ABG O2 Saturation 99 H ABG Base Excess -2 VBG pH 7.18 L VBG pCO2 51 VBG pO2 35 VBG O2 Sat (Lily) 60 L VBG Base Excess -9 L Oxygen Liter Flow FiO2 25 Sodium 152 H Potassium 3.8 D Chloride 116 H Carbon Dioxide 20.5 Anion Gap 16 BUN 49 H Creatinine 1.5 H Estim Creat Clear Calc 20.3 L eGFR 34 L BUN/Creatinine Ratio 33 H Glucose 135 H Calculated Osmolality 316 H Lactic Acid 9.4 H* 9.4 H* Calcium 7.8 L Corrected Calcium 8.5 Magnesium 2.6 Total Bilirubin 0.5 AST 938 H* ALT 295 H Alkaline Phosphatase 128 H D Total Creatine Kinase 49112 H D Troponin I 0.958 H* Total Protein 5.3 L Albumin 3.1 L Globulin 2.2 L Albumin/Globulin Ratio 1.4 Beta-Hydroxybutyrate/Acetoacetate Hepatitis A IgM Ab Hep Bs Antigen Hep B Core IgM Ab Hepatitis C Antibody Blood Type Antibody Screen Crossmatch Blood Bank Wristband ID 06/19/24 06/19/24 09:20 13:12 WBC RBC Hgb Hct MCV MCH MCHC RDW Std Deviation Plt Count Neut % (Auto) Lymph % (Auto) Adams % (Auto) Eos % (Auto) Baso % (Auto) Neut # (Auto) Lymph # (Auto) Adams # (Auto) Eos # (Auto) Baso # (Auto) Immature Gran # (Auto) Absolute Nucleated RBC Immature Gran % Nucleated RBC % Smear Path Review Puncture Site ABG pH ABG pCO2 ABG pO2 ABG HCO3 ABG O2 Saturation ABG Base Excess VBG pH VBG pCO2 VBG pO2 VBG O2 Sat (Lily) VBG Base Excess Oxygen Liter Flow FiO2 Sodium Potassium Chloride Carbon Dioxide Anion Gap BUN Creatinine Estim Creat Clear Calc eGFR BUN/Creatinine Ratio Glucose Calculated Osmolality Lactic Acid 4.2 H* Calcium Corrected Calcium Magnesium Total Bilirubin AST ALT Alkaline Phosphatase Total Creatine Kinase 64989 H D Troponin I Total Protein Albumin Globulin Albumin/Globulin Ratio Beta-Hydroxybutyrate/Acetoacetate Hepatitis A IgM Ab Hep Bs Antigen Hep B Core IgM Ab Hepatitis C Antibody Blood Type Antibody Screen Crossmatch Blood Bank Wristband ID ABG Interpretation ABG results: 06/18/24 06/18/24 06/18/24 13:32 16:05 22:00 ABG pH 7.42 Cancelled ABG pCO2 31 L Cancelled ABG pO2 62 L Cancelled ABG HCO3 20 Cancelled ABG O2 Saturation 91 Cancelled ABG Base Excess -4 L Cancelled VBG pH 6.95 L VBG pCO2 59 H VBG pO2 44 VBG Base Excess -18 L 06/19/24 06/19/24 02:38 05:08 ABG pH 7.44 ABG pCO2 33 ABG pO2 105 D ABG HCO3 22 ABG O2 Saturation 99 H ABG Base Excess -2 VBG pH 7.18 L VBG pCO2 51 VBG pO2 35 VBG Base Excess -9 L Quality Measures Quality Measures sepsis Current suspected stage: sepsis Possible source: pulmonary Blood cultures ordered: completed in ED Antibiotic ordered: Yes Advance care planning discussed with:: patient Assessment & Plan Assessment Current Active Medications: Generic Name Dose Route Start Last Admin Trade Name Freq PRN Reason Stop Dose Admin Acetaminophen 650 mg 06/18/24 16:03 Acetaminophen Supp 650 Mg Supp NE 07/18/24 16:02 Q6HR PRN FEVER>101.5 Balsam [place] Oil 0 gm 06/19/24 21:00 Balsam [place] Oil (Venelex) 60 Gm Tube TOP 07/19/24 20:59 BID TAWNY Dextrose 25 ml 06/18/24 12:51 06/19/24 16:02 Dextrose 50%-Water Inj 50 Ml Syringe IV 07/18/24 12:50 25 ml Q15MIN PRN Administration BG 50-70 responsive npo pt Dextrose 50 ml 06/18/24 12:51 Dextrose 50%-Water Inj 50 Ml Syringe IV 07/18/24 12:50 Q15MIN PRN BG <50 OR BG <70 & pt unresponsive Glucagon 1 mg 06/18/24 16:07 Glucagon Inj 1 Mg Vial IM Q15MIN PRN BG <70, and no IV access Heparin Sodium (Porcine) 5,000 unit 06/18/24 21:00 06/19/24 09:04 Heparin Sod Inj 5000 Unit/Ml Vial SC 07/02/24 20:59 5,000 unit BID TAWNY Administration Azithromycin 250 mg/ Sodium 250 mls @ 250 mls/hr 06/19/24 21:00 Chloride IV 06/25/24 20:59 QDAY@2100 TAWNY Piperacillin/Tazobactam/Dextrose 3.375 gm in 50 mls @ 12.5 mls/hr 06/18/24 22:00 06/19/24 15:43 Zosyn IV 06/25/24 21:59 12.5 mls/hr Q8HR TAWNY Administration Lactated Ringer's 1,000 mls @ 175 mls/hr 06/19/24 08:04 06/19/24 15:43 Lactated Ringers IV 07/19/24 08:02 175 mls/hr .Q5H43M TAWNY Administration Dextrose 1,000 mls @ 50 mls/hr 06/19/24 08:15 06/19/24 08:13 D5w IV 07/19/24 08:14 50 mls/hr .Q20H TAWNY Administration Plan Neuro: #Acute encephalopathy, resolved Patient was somnolent yesterday GCS 14, currently ack to baseline per family at bedside, might have undiagnosed dementia CVS: #Troponinemia, improving Troponins peaked at 1 then downtrended, likely type 2 demand ischemia in setting of shock #Shock, etiology unclear, did not require pressors Cardiogenic: POCUS revealed preserved EF ~45%, no RV strain, no clear valvulopathies, underfilled RV - unlikely cardiogenic etiology Obstructive: No tracheal deviation, pericardial effusion, PTX - unlikely obstructive etiology Distributive: Unlikely due to physical exam findings of cool cyanotic extremities, unable to be ruled out however Hypovolemic: Patient has had poor oral intake, received 3L fluid resucitation while in the ED, patient had elevated lactc acid, cool extremities, clinical signs of shock #CHF, EF 40-45% Last TTE performed in 12/2022 Will repeat TTE POCUS shows unchanged EF from prior #Hx of carotid endarterectomy Patient on Plavix assumedly from history of CEA, hold for now as patient' shemoglobin dropped and required transfusion Resp: #COPD on home O2, stable #Possible PNA Procalcitonin elevated at 3.52 Rocephin x1 given in ED Rocephin 1g qd (06/18 - ) and azithromycin 250mg qd (06/18 - ) #15mm spiculated pulmonary nodule in LLL Nodule was not spotted in CT chest performed in 12/2022 Will need f/u with repeat CT scan in 3 months, PET-CT or biopsy per Fleischner Society guidelines GI: #Suspected bowel ischemia Benign abdomen on exam, per ED physician patient was exquisitely ttp on their exam earlier. Consulted general surgery for concern of mesenteric ischemia CT abd/pelvis without contrast significant for increased density suggesting inflammatory/infectious etiology CT Abd/Pelvis with contrast ordered by ED to rule out mesenteric ischemia, worrisome for bowel ischemia as it shows pneumatosis intestinalis. Surgery was consulted who believes is not an acute surgical case, as abdomen is currently benign Zosyn 3.375mg q8 (06/18 - ) Bowel rest Renal: #Rhabdomyolysis, improving #Lactic acidosis, improving Recent ankle sprain, patient likely fell again and was left on ground for prolonged period Received 3L NS in ED. Initially did not have good UOP after Lopes insertion and initial fluid bolus. After aggressive fluid resucitation and lasix urine output has mantained at goal: Above 100cc/hr Trend lactate #Hyperkalemia, resolved In setting of rhabdo Will follow CMP Endo: #Transaminitis Likely in the setting of rhabdomyloysis Will check hepatitis panel Continue to tred #Hypoglycemia, resolved Was 20 when EMS found patient, received D50 amp, improved MSK: #Severe PAD #Extensive ecchymosis #Skin breakdown on right hip Living situation likely unsafe for patient and she is a serious fall risk Severe PAD noted on physical exam dinished/absent pedal pulses, doppler shwed severe PAD, courtesy called vascular surgeon Dr Pruitt who would gladly see patient outpatient as this is a more chronic condition. Holding hepatin at this time since patient's hemoglobin has dropped from her baseline at 10 to 6 last night, requiring a transfsion. Post transfusion H&H 7.7 Heme/ID: #Acute anemia, stable post transfusion hemoglobin has dropped from her baseline at 10 to 6 last night, requiring a transfsion. Post transfusion H&H 7.7 No active signs of bleeding, however FOBT was positive, we will continue to monitor DVT: Holding chemical prophilaxis due to drop in Hb requiring blood transfusion GI: not indicated at this time, NPO Code status: Full Lopes: In place Patient might need placement after DC since she lives alone and has multiple comorbidities, family contacted and at bedside Patient's care discussed with attending physician, Dr Flaquito Schmitz MD PGY3 Attending Provider Attestation/Addendum pt seen and examined, d/w resident. In brief this is a 83yo F admitted for normotensive shock with evidence of poor tissues perfusion and elevated LA. She was found to have rhabdo and started on IVF with goal UOP >100cc/hr. on exam today she has absent pedal pulses and cold/dusky feet. d/w vascular and appears to have severe PAD, unable to perform aorta with runoff due to kidney function at this time. unable to start heparin for possible acute/chronic limb ischemia due to drop in h/h and ? underlying blood loss for which she has received 1 uPRBC. currently her LA is trending down. She is more awake and interactive today. case d/w ICU team labs, imaging, records reviewed ~44ccmin required for eval, exam, review, intervention, discussion and formulation of POC for this critically ill pt with EMMY, rhabdo and lactic acidosis who is at high risk for further and ongoing decompensation
--- NOTE | 2024-06-19 16:51 | PC.SS ---
SS follow up: Per auditor in charge, there have been issues regarding designated point of contact for the patient regarding multiple family members calling wanting an update on the patient, alleging current point of contact (Meghna) who is patient's daughter, is an alcoholic and not appropriate to make medical decisions of behalf of the patient. DEPUTY CONTROLLER and ED Environmental Research Project Manager Stephanie Loja, made bed side contact with the patient who appeared to be alert and oriented to person, place and situation. Patient designated her daughter, Meghna Woody as her alternate medical surrogate decision maker and point of contact. Patient informs there is no POA or advance directive at this time. Patient was encourage to complete an advance on her behalf to prevent issues in the future. Patient informs Meghna lives with her and assist in taking her to medical appointments. During this contact, the patient's daughter Meghna and [facility] care provider Jack Alva were also present. Meghna and Abdelrahman appeared to be well kempt, no concern of substance intoxication and appeared to be appropriate. Meghna observed to be tearful and both parties providing emotional support to the patient. Updated ICU charge nurse, regarding patient designating her daughterMeghna as the point of contact and alternate medical surrogate decision maker.
[2024-06-19 17:00] LABS: Hematocrit 23.8 % (36.0-46.0)
[2024-06-19 17:18] LABS: Hemoglobin 7.6 g/dL (12.0-16.0)
--- NOTE | 2024-06-19 17:42 | PD.RESPRO ---
Documentation for date of: 06/19/24 Subjective Subjective Interval history: Patient was downgraded to Team B on 06/19. Signout was received by Dr. Schmitz. Patient examined at bedside. Will continue with fluids fluids which were increased to LR 175 cc/hr, D5W 50cc/hr. Monitor UO hourly with goal 100cc/hr. Lasix PRN to achieve diuresis goal. Repeat CK 29,888 downtrending slowly. LA downtrending--4.2 this morning. Monitor glucose while on d5W drip, switch to NS if around 200. Exam Vital Signs Temp Pulse Resp BP Pulse Ox O2 Del Method O2 Flow Rate 97.8 F 88 17 151/63 H 95 Nasal Cannula 3 06/19/24 04:00 06/19/24 17:15 06/19/24 17:15 06/19/24 17:15 06/19/24 17:15 06/19/24 04:00 06/19/24 07:05 Narrative Exam GENERAL: Elderly female No acute distress. HEENT: Normocephalic, atraumatic and nontender.? Pupils are equal and reactive to light and accommodation.? Oral mucosa dry NECK: Supple without adenopathy. Traquea midline. Nontender, carotid pulse 2+ bilaterally without bruits, no JVD.? CHEST: Heart rate and rythm normal, no murmurs, gallops auscultated. S1 & 2 normal insensity. Nontender on palpation, no deformity and no crepitus. LUNGS: Lung sounds are clear.? No wheezing, rales or ronchi.? No intercostal subcostal retraction. Room air ABDOMEN: Soft,symmetric , nontender, no guarding or rebound tenderness. No abnormal masses palpated.? No pulsatile masses or bruits.? Bowel sounds are normoactive in all 4 quadrants. EXTREMITIES: Nontender.? No pitting edema.? Dusky, absent bilateral pedal pulses. Multiple varicose veins NEURO:? Cranial nerves intact.? There is no focalization.? GCS is 15. Objective Labs 06/19/24 16:22 06/19/24 18:41 Labs: Laboratory Results - last 24 hr 06/18/24 06/18/24 06/18/24 10:10 16:39 19:56 WBC 19.6 H D RBC 2.29 L Hgb 6.0 L* D Hct 19.6 L* MCV 86 MCH 26.2 MCHC 30.6 L RDW Std Deviation 58.7 H Plt Count 473 H Neut % (Auto) 91 H Lymph % (Auto) 2 L [place] % (Auto) 6 Eos % (Auto) 0 Baso % (Auto) 0 Neut # (Auto) 17.8 H Lymph # (Auto) 0.4 L [place] # (Auto) 1.2 H Eos # (Auto) 0.0 Baso # (Auto) 0.0 Immature Gran # (Auto) 0.14 H Absolute Nucleated RBC 0.67 H Immature Gran % 1 H Nucleated RBC % 3 H Smear Path Review Sent to Pathologist Puncture Site ABG pH ABG pCO2 ABG pO2 ABG HCO3 ABG O2 Saturation ABG Base Excess VBG pH VBG pCO2 VBG pO2 VBG O2 Sat (Lily) VBG Base Excess Oxygen Liter Flow FiO2 Sodium 152 H Potassium 4.3 D Chloride 117 H Carbon Dioxide 19.9 L Anion Gap 15 BUN 53 H Creatinine 1.5 H Estim Creat Clear Calc 20.3 L eGFR 34 L BUN/Creatinine Ratio 35 H Glucose 153 H Calculated Osmolality 319 H Lactic Acid 8.4 H* 7.7 H* Calcium 8.0 L Corrected Calcium Magnesium Total Bilirubin AST ALT Alkaline Phosphatase Total Creatine Kinase 00672 H D Troponin I 0.960 H* D Total Protein Albumin Globulin Albumin/Globulin Ratio Beta-Hydroxybutyrate/Acetoacetate 0.1 Hepatitis A IgM Ab Non Reactive Hep Bs Antigen Non Reactive Hep B Core IgM Ab Non Reactive Hepatitis C Antibody Non Reactive Blood Type A Positive Antibody Screen NEGATIVE Crossmatch See Detail Blood Bank Wristband ID Yes 06/18/24 06/18/24 06/18/24 21:03 22:00 22:07 WBC RBC Hgb 7.0 L Hct 23.5 L MCV MCH MCHC RDW Std Deviation Plt Count Neut % (Auto) Lymph % (Auto) [place] % (Auto) Eos % (Auto) Baso % (Auto) Neut # (Auto) Lymph # (Auto) [place] # (Auto) Eos # (Auto) Baso # (Auto) Immature Gran # (Auto) Absolute Nucleated RBC Immature Gran % Nucleated RBC % Smear Path Review Puncture Site Cancelled ABG pH Cancelled ABG pCO2 Cancelled ABG pO2 Cancelled ABG HCO3 Cancelled ABG O2 Saturation Cancelled ABG Base Excess Cancelled VBG pH VBG pCO2 VBG pO2 VBG O2 Sat (Lily) VBG Base Excess Oxygen Liter Flow Cancelled FiO2 Cancelled Sodium Potassium Chloride Carbon Dioxide Anion Gap BUN Creatinine Estim Creat Clear Calc eGFR BUN/Creatinine Ratio Glucose Calculated Osmolality Lactic Acid 6.7 H* Calcium Corrected Calcium Magnesium Total Bilirubin AST ALT Alkaline Phosphatase Total Creatine Kinase Troponin I 1.096 H* Total Protein Albumin Globulin Albumin/Globulin Ratio Beta-Hydroxybutyrate/Acetoacetate Hepatitis A IgM Ab Hep Bs Antigen Hep B Core IgM Ab Hepatitis C Antibody Blood Type Antibody Screen Crossmatch Blood Bank Wristband ID 06/19/24 06/19/24 06/19/24 02:38 04:44 05:08 WBC 24.0 H RBC 2.86 L Hgb 7.7 L Hct 24.8 L MCV 87 MCH 26.9 MCHC 31.0 RDW Std Deviation 55.4 H Plt Count 386 D Neut % (Auto) 92 H Lymph % (Auto) 2 L [place] % (Auto) 6 Eos % (Auto) 0 Baso % (Auto) 0 Neut # (Auto) 22.1 H Lymph # (Auto) 0.4 L [place] # (Auto) 1.3 H Eos # (Auto) 0.0 Baso # (Auto) 0.0 Immature Gran # (Auto) 0.12 H Absolute Nucleated RBC 0.45 H Immature Gran % 1 H Nucleated RBC % 2 H Smear Path Review Puncture Site Right Radial ABG pH 7.44 ABG pCO2 33 ABG pO2 105 D ABG HCO3 22 ABG O2 Saturation 99 H ABG Base Excess -2 VBG pH 7.18 L VBG pCO2 51 VBG pO2 35 VBG O2 Sat (Lily) 60 L VBG Base Excess -9 L Oxygen Liter Flow FiO2 25 Sodium 152 H Potassium 3.8 D Chloride 116 H Carbon Dioxide 20.5 Anion Gap 16 BUN 49 H Creatinine 1.5 H Estim Creat Clear Calc 20.3 L eGFR 34 L BUN/Creatinine Ratio 33 H Glucose 135 H Calculated Osmolality 316 H Lactic Acid 9.4 H* 9.4 H* Calcium 7.8 L Corrected Calcium 8.5 Magnesium 2.6 Total Bilirubin 0.5 AST 938 H* ALT 295 H Alkaline Phosphatase 128 H D Total Creatine Kinase 91512 H D Troponin I 0.958 H* Total Protein 5.3 L Albumin 3.1 L Globulin 2.2 L Albumin/Globulin Ratio 1.4 Beta-Hydroxybutyrate/Acetoacetate Hepatitis A IgM Ab Hep Bs Antigen Hep B Core IgM Ab Hepatitis C Antibody Blood Type Antibody Screen Crossmatch Blood Bank Wristband ID 06/19/24 06/19/24 06/19/24 09:20 13:12 16:22 WBC RBC Hgb 7.6 L Hct 23.8 L MCV MCH MCHC RDW Std Deviation Plt Count Neut % (Auto) Lymph % (Auto) [place] % (Auto) Eos % (Auto) Baso % (Auto) Neut # (Auto) Lymph # (Auto) [place] # (Auto) Eos # (Auto) Baso # (Auto) Immature Gran # (Auto) Absolute Nucleated RBC Immature Gran % Nucleated RBC % Smear Path Review Puncture Site ABG pH ABG pCO2 ABG pO2 ABG HCO3 ABG O2 Saturation ABG Base Excess VBG pH VBG pCO2 VBG pO2 VBG O2 Sat (Lily) VBG Base Excess Oxygen Liter Flow FiO2 Sodium Potassium Chloride Carbon Dioxide Anion Gap BUN Creatinine Estim Creat Clear Calc eGFR BUN/Creatinine Ratio Glucose Calculated Osmolality Lactic Acid 4.2 H* Calcium Corrected Calcium Magnesium Total Bilirubin AST ALT Alkaline Phosphatase Total Creatine Kinase 86902 H D Troponin I Total Protein Albumin Globulin Albumin/Globulin Ratio Beta-Hydroxybutyrate/Acetoacetate Hepatitis A IgM Ab Hep Bs Antigen Hep B Core IgM Ab Hepatitis C Antibody Blood Type Antibody Screen Crossmatch Blood Bank Wristband ID ABG Interpretation ABG results: 06/18/24 06/18/24 06/18/24 13:32 16:05 22:00 ABG pH 7.42 Cancelled ABG pCO2 31 L Cancelled ABG pO2 62 L Cancelled ABG HCO3 20 Cancelled ABG O2 Saturation 91 Cancelled ABG Base Excess -4 L Cancelled VBG pH 6.95 L VBG pCO2 59 H VBG pO2 44 VBG Base Excess -18 L 06/19/24 06/19/24 02:38 05:08 ABG pH 7.44 ABG pCO2 33 ABG pO2 105 D ABG HCO3 22 ABG O2 Saturation 99 H ABG Base Excess -2 VBG pH 7.18 L VBG pCO2 51 VBG pO2 35 VBG Base Excess -9 L Quality Measures Quality Measures sepsis Current suspected stage: sepsis Possible source: pulmonary Blood cultures ordered: completed in ED Antibiotic ordered: Yes Advance care planning discussed with:: child Assessment & Plan Assessment Current Active Medications: Generic Name Dose Route Start Last Admin Trade Name Freq PRN Reason Stop Dose Admin Acetaminophen 650 mg 06/18/24 16:03 Acetaminophen Supp 650 Mg Supp NE 07/18/24 16:02 Q6HR PRN FEVER>101.5 Balsam [place] Oil 0 gm 06/19/24 21:00 Balsam [place] Oil (Venelex) 60 Gm Tube TOP 07/19/24 20:59 BID TAWNY Dextrose 25 ml 06/18/24 12:51 06/19/24 16:02 Dextrose 50%-Water Inj 50 Ml Syringe IV 07/18/24 12:50 25 ml Q15MIN PRN Administration BG 50-70 responsive npo pt Dextrose 50 ml 06/18/24 12:51 Dextrose 50%-Water Inj 50 Ml Syringe IV 07/18/24 12:50 Q15MIN PRN BG <50 OR BG <70 & pt unresponsive Glucagon 1 mg 06/18/24 16:07 Glucagon Inj 1 Mg Vial IM Q15MIN PRN BG <70, and no IV access Heparin Sodium (Porcine) 5,000 unit 06/18/24 21:00 06/19/24 09:04 Heparin Sod Inj 5000 Unit/Ml Vial SC 07/02/24 20:59 5,000 unit BID TAWNY Administration Azithromycin 250 mg/ Sodium 250 mls @ 250 mls/hr 06/19/24 21:00 Chloride IV 06/25/24 20:59 QDAY@2100 TAWNY Piperacillin/Tazobactam/Dextrose 3.375 gm in 50 mls @ 12.5 mls/hr 06/18/24 22:00 06/19/24 15:43 Zosyn IV 06/25/24 21:59 12.5 mls/hr Q8HR TAWNY Administration Lactated Ringer's 1,000 mls @ 175 mls/hr 06/19/24 08:04 06/19/24 15:43 Lactated Ringers IV 07/19/24 08:02 175 mls/hr .Q5H43M TAWNY Administration Dextrose 1,000 mls @ 50 mls/hr 06/19/24 08:15 06/19/24 08:13 D5w IV 07/19/24 08:14 50 mls/hr .Q20H TAWNY Administration Plan Isadora De Souza is 83 yr F with PMH of hypertension, COPD, and CHF ejection fraction of 40-45%, COPD, depression presented to [facility] on 06/18 after found by EMS for altered mental status after she was found down at home by her daughter. Patient lives at home with daughter. Unknown for how long patient was down. She was admitted for treatment of hyperkalemia, rhabdomyolysis. #Rhabdomyolysis #Lactic acidosis-improving Recent ankle sprain, patient likely fell again and was left on ground for prolonged period. Patient was directly admitted to ICU from the ED for closer monitoring of urine output and fluid resuscitation. Continue monitoring urine output hourly with goal 100 cc/h ? Continue fluids D5W 50 cc/h and LR 175 cc/h ? trending CK levels -Trend lactic acid -Continue Lopes ? Nephrology consulted. Dr Pa suggesting continued aggressive fluid resuscitation. #Abdominal pain #Transaminitis Initial exam in ED positive for tender to palpation. Reexamination abdominal physical exam is benign. Transaminitis most likely due to rhabdomyolysis. However general surgery GI was consulted concern for mesenteric ischemia. CT abd/pelvis without contrast significant for increased density suggesting inflammatory/infectious etiology CT Abd/Pelvis with contrast ordered by ED to rule out mesenteric ischemia, may shed light on above hyperdensity noted by radiologist -started on Zosyn 3.375mg q8 (06/18 - ) in ICU - Continue monitoring liver enzymes ? Per surgery evaluation, less likely that patient is currently having ischemia. They will continue to monitor. #PNA Possible superimposed PNA seen on cxr with congestion. 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 Severe PAD noted on physical exam dinished/absent pedal pulses, doppler shwed severe PAD, courtesy called vascular surgeon Dr Pruitt who agreed to see patient outpatient as this is a more chronic condition. -continue with Plavix and statin #Hx of carotid endarterectomy -will resume Plavix 75 mg daily after med rec -atorvastatin 10mg daily #15mm spiculated pulmonary nodule in LLL Nodule was not spotted in CT chest performed in 12/2022 Will need f/u with repeat CT scan in 3 months -follow up outpatient #Troponinemia Mild elevation at 0.647, uptrended to 0.96, likely type 2 demand ischemia in setting of shock -delta achieved #Hyperglycemia, resolved #Elevated beta hydroxybutyrate-resolved #Hypoglycemia-resolved #Chronic normocytic anemia, stable #Hyperkalemia, resolved #Altered mental status in setting of shock-resolved Health maintenance: Dispo: downgraded to floors FEN: regular DVT prophylaxis: Subcu heparin CODE STATUS: Full code The patient's management plan was discussed with my attending physician Dr. Vyas. Lena Sawant, PGY-1 Attending Provider Attestation/Addendum I have discussed and was present for the essential components of the history, physical examination, diagnosis, and treatment plan with the resident. I agree with the patient's care as documented by the resident and amended herein by me. Kishore Vyas DO. Although this document has been carefully reviewed, there may still be some phonetic and other typographical errors. These errors are purely grammatical due to imperfections in the software program and should not be construed in any way to compromise the substance of the patient's medical care during this visit.
[2024-06-19 19:43] LABS: Glucose 117 mg/dL (74-106)
[2024-06-19 20:10] LABS: Creatine Kinase 27356 U/L (34-171)
--- NOTE | 2024-06-19 20:10 | EKG_ITS ---
[facility] Test Date: 2024-06-19 Pat Name: ROSELNY EMERSON [facility] Gender[facility] Female [employer] Helper: [id number] : 1940 Requested By: Parris Wakefield Order Number: [id number] Reading MD: Parris Wakefield Measurements Intervals [place] Rate: 92 P: RI: QRS: 23 QRSD: 70 T: 180 QT: 359 QTc: 444 Interpretive Statements ATRIAL FIBRILLATION LOW QRS VOLTAGE IN EXTREMITY LEADS ABNORMAL QRS-T ANGLE Compared to ECG 06/18/2024 09:50:17 Sinus rhythm no longer present Sinus arrhythmia no longer present Myocardial infarct finding no longer present T-wave abnormality no longer present Possible ischemia no longer present /store/S0/[id number]/[id number].pdf
[2024-06-19] MEDS: AZITHROMYCIN INJ 250 MG in SODIUM CHLORIDE 0.9% 250 ML 250 ML IV (21:00)
[2024-06-19] MEDS: BALSAM PERU/CASTOR OIL (Venelex) 60 GM TUBE TOP (21:01)
[2024-06-19] MEDS: HYDROcodone/APAP 5/325 TABLET 1 TAB PO (21:03)
[2024-06-19 23:58] LABS: Reflex Lactate? Y
[2024-06-20] VITALS (10 sets, daily range): BP systolic 102–142; BP diastolic 58–71; PULSE 81–109; RESP 16–18; TEMP 36.2–36.8; O2SAT 86–99; BMI 23.7; BMI 23.6
[2024-06-20 00:09] LABS: Lactic Acid, 3 HR 4.9 mMol/L (0.4-2.0)
[2024-06-20 00:33] LABS: Glucose 91 mg/dL (74-106)
[2024-06-20] MEDS: RINGERS LACTATED 1000 ML 1,000 ML 175 ML IV ×2 (02:14→08:10)
[2024-06-20 02:18] LABS: Lactate (Lactic Acid) 3.7 mMol/L (0.4-2.0)
[2024-06-20] MEDS: HYDROcodone/APAP 5/325 TABLET 1 TAB PO ×3 (03:03→23:14)
[2024-06-20] MEDS: PIPER/TAZO 3.375 GM PREMIX 3.375 GM/50 ML BAG IV ×3 (04:59→22:00)
[2024-06-20 05:15] LABS: Reflex Lactate? Y
[2024-06-20 07:05] LABS: Basophils % (Auto) 0 % (0-2.5); Eosinophils % (Auto) 0 % (0-10); Hematocrit 22.8 % (36.0-46.0); Immature Granulocytes % (Auto) 1 % (0-0); Immature Granulocytes Auto 0.16 Thou/mm3 (0.00-0.00); Lymphocytes # (Auto) 0.7 Thou/mm3 (1.0-4.8); Lymphocytes % (Auto) 3 % (10-50); Mean Corpuscular HGB Conc 31.1 g/dl (31.0-37.0); Mean Corpuscular Hemoglobin 26.2 pg (25.0-35.0); Mean Corpuscular Volume 84 fL (80-100); Monocytes # (Auto) 0.6 Thou/mm3 (0.0-0.8); Monocytes % (Auto) 3 % (0-12); Neutrophils # (Auto) 21.1 Thou/mm3 (1.8-7.7); Neutrophils % (Auto) 94 % (37-80); Nucleated Red Blood Cell % 1 /100 WBC (0); Platelet Count 295 Thou/mm3 (140-440); RDW Standard Deviation 56.6 fL (36.4-46.3); Red Blood Count 2.71 Miln/mm3 (4.00-5.20); White Blood Count 22.6 Thou/mm3 (3.6-11.0)
[2024-06-20 07:07] LABS: Hemoglobin 7.1 g/dL (12.0-16.0)
[2024-06-20 07:41] LABS: Alanine Aminotransferase 355 U/L (10-49); Albumin, Serum 2.8 gm/dL (3.4-4.8); Albumin/Globulin Ratio 1.4 (1.2-2.2); Alkaline Phosphatase 97 U/L (46-116); Anion Gap 11 (7-16); Aspartate Amino Transferase 870 U/L (0-34); BUN/Creatinine Ratio 27 Ratio (12-20); Bilirubin,Total 0.3 mg/dL (0.3-1.2); Blood Urea Nitrogen 43 mg/dL (9-23); Calcium 7.3 mg/dL (8.3-10.6); Calcium (Corrected) 8.3 mg/dL (8.5-10.1); Carbon Dioxide 25.5 mMol/L (20.0-31.0); Chloride 109 mMol/L (98-107); Creatine Kinase 17481 U/L (34-171); Creatinine (Component) 1.6 mg/dL (0.6-1.3); Estimated Creatinine Clearance 20.1 mL/min (>60); Glucose 101 mg/dL (74-106); Osmolality,Calculated 299 (275-295); Potassium 3.1 mMol/L (3.4-5.1); Sodium 145 mMol/L (136-145); Total Protein 4.8 gm/dL (5.7-8.2); eGFR 32 See Note
[2024-06-20] MEDS: BALSAM PERU/CASTOR OIL (Venelex) 60 GM TUBE TOP ×2 (08:11→23:15)
[2024-06-20] MEDS: POTASSIUM CHLORIDE 20 mEq TABCR 40 MEQ PO (08:28)
[2024-06-20] MEDS: RINGERS LACTATED 1000 ML 1,000 ML 125 ML IV ×2 (08:41→18:21)
[2024-06-20 08:43] LABS: Creatine Kinase 21115 U/L (34-171)
--- NOTE | 2024-06-20 09:29 | PC.SS ---
Follow up note: Pt is an ICU down grade. Pt is on IV antibiotic and IV fluids.
[2024-06-20] MEDS: POTASSIUM CHLORIDE 20 mEq TABCR PO (09:30)
--- NOTE | 2024-06-20 11:26 | ESPR_ITS ---
RE: ROSELYN EMERSON : 1940 DATE OF SERVICE: 06/20/2024 HISTORY OF PRESENT ILLNESS: Briefly, she is an 83-year-old woman, smoker with hypertension, COPD, CHF with reduced ejection fraction of 40% to 45%, who presented to the emergency room on 06/18/2024 after she was found altered by her daughter. The patient was down at home and EMS was called and brought her to the emergency room. Upon presentation, the patient was found with severe anemia with stool guaiac x2 positive and was given 2 units of packed RBCs. The patient was also noted to have severe hyperkalemia with a potassium of 6.6, CO2 of 10.61, and a lactic acid level of 8.4. The patient was also found with an elevated CPK with blood in the urine, but without RBCs. She was briefly admitted in ICU and when she improved, she was transferred to telemetry. The patient's kidney function peaked at 1.8 and now went down to 1.5 to 1.6. She is more awake and alert and answered questions appropriately. MEDICATIONS: 1. Acetaminophen. 2. Balsam. 3. D5 water at 50 mL per hour 4. Furosemide 40 mg IV x1 5. Zosyn 3.375 g IV q.8. 6. Metoprolol 5 mg IV x1 PHYSICAL EXAMINATION: General: She is more awake, alert, oriented, answers questions appropriately. Vital Signs: Blood pressure is 102/61, heart rate of 81, respiratory rate of 16, temperature 97.2. HEENT: Anicteric sclerae. Normocephalic. Neck: Supple. No JVD. Chest And Lungs: Symmetrical expansion. Clear breath sounds. Heart: Without murmur. Abdomen: Soft and nontender. Extremities: No edema. LABORATORY DATA: Hemoglobin 7.1, WBC 22,600, platelet count 295,000. Sodium 145, potassium 3.1, chloride 109, CO2 25.5, BUN 43, creatinine 1.6, lactic acid 2, calcium 8.3, AST 870, [place] [address], albumin 2.8. ASSESSMENT: 1. Non-oliguric acute kidney injury, most likely secondary to hemodynamic instability, possibly secondary to acute rhabdomyolysis, improved with IV fluids. 2. Hyperkalemia secondary to severe metabolic acidosis, now improved. 3. Severe metabolic acidosis secondary to lactic acidosis and possibly type A due to severe anemia. 4. Elevated liver enzymes. 5. Possible ischemic colitis causing lactic acidosis. 6. History of congestive heart failure with EF of only 40% to 45% on 2D echocardiogram done on 12/23/2023. 7. Elevated troponin level, possibly Type 2 NSTEMI. 8. History of carotid endarterectomy. 9. Peripheral vascular disease. 10. History of smoking. PLAN: The patient's kidney function is currently stable. Continue supportive treatment. Continue monitoring urine output and kidney function on a daily basis as well as electrolytes. DT: 10:26:36 TT: 11:21:00 Ref: [id number] - TID: [id number] MTDD
--- NOTE | 2024-06-20 12:07 | PC.SS ---
Addendum entered by Bettina Pemberton 06/20/24 12:27: SS spoke to Jorge from [facility] who is closing assessment today. Original Note: SS met with pt discuss dc plan. SS provided pt with verbal dc options for home or SNF. Patient's choice is SNF and prefers [place]. [facility] assessment initiated and is requiring level 2 clearance.
[2024-06-20 12:56] LABS: Glucose 99 mg/dL (74-106)
--- NOTE | 2024-06-20 15:11 | ESPR_ITS ---
Documentation for date of: 06/20/24 Subjective Subjective Interval history: Patient examined at bedside. Overnight she maintained good urine output with at least 100 cc/h and CKs downtrending. Has no major complaints. Blood sugars well-controlled, vital stable, afebrile. Leukocytosis improving at 22, hypokalemia 3.1 repleted with 40+20 mEq. Creatinine up trended 1.6. Lactic acidosis resolved. Continue monitoring LFTs overall downtrending. Physical exam benign for any abdominal pain. Low suspicion for any ischemic process. GI is consulted today due to downtrending hemoglobin and positive occult blood. Continuing with Zosyn in setting of pneumonia and prophylatic gram-negative coverage for abdominal infection Continue monitoring urine output, CK. Exam Vital Signs Temp Pulse Resp BP Pulse Ox O2 Del Method O2 Flow Rate 97.4 F 84 16 138/71 H 93 L Nasal Cannula 4 06/20/24 12:00 06/20/24 12:00 06/20/24 12:00 06/20/24 12:00 06/20/24 12:00 06/20/24 12:00 06/20/24 12:00 Narrative Exam General: Elderly female, No acute distress, cooperative HEENT: NCAT, No JVD noted. Mucosa dry. Pupils are equal and reactive to light bilaterally Cardiovascular: Normal S1 and S2. Regular rate and rhythm. Respiratory: Lungs are clear to auscultation bilaterally. No wheezing or crackles heard. Abdomen: Soft, nontender, not distended, normal bowel sounds. Skin: Warm to touch, dry, no rashes noted Musculoskeletal: No gross injuries. Able to move all 4 extremities. Dusky, absent bilateral pedal pulses. Multiple varicose veins Neuro: Alert and oriented x2. No focal neuro deficits. Psych: Normal affect and mood Objective Labs 06/20/24 06:41 06/20/24 12:00 Labs: Laboratory Results - last 24 hr 06/19/24 06/19/24 06/19/24 13:12 16:22 18:41 WBC RBC Hgb 7.6 L Hct 23.8 L MCV MCH MCHC RDW Std Deviation Plt Count Neut % (Auto) Lymph % (Auto) [place] % (Auto) Eos % (Auto) Baso % (Auto) Neut # (Auto) Lymph # (Auto) [place] # (Auto) Eos # (Auto) Baso # (Auto) Immature Gran # (Auto) Absolute Nucleated RBC Immature Gran % Nucleated RBC % Sodium Potassium Chloride Carbon Dioxide Anion Gap BUN Creatinine Estim Creat Clear Calc eGFR BUN/Creatinine Ratio Glucose 117 H Calculated Osmolality Lactic Acid Calcium Corrected Calcium Magnesium Total Bilirubin AST ALT Alkaline Phosphatase Total Creatine Kinase 28500 H D 98689 H D Total Protein Albumin Globulin Albumin/Globulin Ratio 06/19/24 06/19/24 06/20/24 20:34 23:50 02:04 WBC RBC Hgb Hct MCV MCH MCHC RDW Std Deviation Plt Count Neut % (Auto) Lymph % (Auto) [place] % (Auto) Eos % (Auto) Baso % (Auto) Neut # (Auto) Lymph # (Auto) [place] # (Auto) Eos # (Auto) Baso # (Auto) Immature Gran # (Auto) Absolute Nucleated RBC Immature Gran % Nucleated RBC % Sodium Potassium Chloride Carbon Dioxide Anion Gap BUN Creatinine Estim Creat Clear Calc eGFR BUN/Creatinine Ratio Glucose 91 Calculated Osmolality Lactic Acid 5.0 H* 4.9 H* 3.7 H Calcium Corrected Calcium Magnesium Total Bilirubin AST ALT Alkaline Phosphatase Total Creatine Kinase 12765 H D Total Protein Albumin Globulin Albumin/Globulin Ratio 06/20/24 06/20/24 06:41 12:00 WBC 22.6 H RBC 2.71 L Hgb 7.1 L Hct 22.8 L MCV 84 MCH 26.2 MCHC 31.1 RDW Std Deviation 56.6 H Plt Count 295 D Neut % (Auto) 94 H Lymph % (Auto) 3 L [place] % (Auto) 3 Eos % (Auto) 0 Baso % (Auto) 0 Neut # (Auto) 21.1 H Lymph # (Auto) 0.7 L [place] # (Auto) 0.6 Eos # (Auto) 0.0 Baso # (Auto) 0.0 Immature Gran # (Auto) 0.16 H Absolute Nucleated RBC 0.20 H Immature Gran % 1 H Nucleated RBC % 1 H Sodium 145 Potassium 3.1 L D Chloride 109 H Carbon Dioxide 25.5 Anion Gap 11 BUN 43 H Creatinine 1.6 H Estim Creat Clear Calc 20.1 L eGFR 32 L BUN/Creatinine Ratio 27 H Glucose 101 99 Calculated Osmolality 299 H Lactic Acid 2.0 Calcium 7.3 L Corrected Calcium 8.3 L Magnesium 2.0 Total Bilirubin 0.3 AST 870 H* ALT 355 H Alkaline Phosphatase 97 D Total Creatine Kinase 75787 H D Total Protein 4.8 L Albumin 2.8 L Globulin 2.0 L Albumin/Globulin Ratio 1.4 ABG Interpretation ABG results: 06/18/24 06/18/24 06/18/24 13:32 16:05 22:00 ABG pH 7.42 Cancelled ABG pCO2 31 L Cancelled ABG pO2 62 L Cancelled ABG HCO3 20 Cancelled ABG O2 Saturation 91 Cancelled ABG Base Excess -4 L Cancelled VBG pH 6.95 L VBG pCO2 59 H VBG pO2 44 VBG Base Excess -18 L 06/19/24 06/19/24 02:38 05:08 ABG pH 7.44 ABG pCO2 33 ABG pO2 105 D ABG HCO3 22 ABG O2 Saturation 99 H ABG Base Excess -2 VBG pH 7.18 L VBG pCO2 51 VBG pO2 35 VBG Base Excess -9 L Quality Measures Quality Measures sepsis Current suspected stage: sepsis Possible source: pulmonary Blood cultures ordered: completed in ED Antibiotic ordered: Yes Advance care planning discussed with:: other Assessment & Plan Assessment Current Active Medications: Generic Name Dose Route Start Last Admin Trade Name Freq PRN Reason Stop Dose Admin Acetaminophen 650 mg 06/18/24 16:03 Acetaminophen Supp 650 Mg Supp [place] 07/18/24 16:02 Q6HR PRN FEVER>101.5 Hydrocodone Bitart/Acetaminophen 1 tab 06/19/24 20:52 06/20/24 03:03 Hydrocodone/Apap 5/325 Tablet PO 06/24/24 20:51 1 tab Q6HR PRN Administration Pain 4-10 Balsam [place] Oil 0 gm 06/19/24 21:00 06/20/24 08:11 Balsam [place] Oil (Venelex) 60 Gm Tube TOP 07/19/24 20:59 1 applicatio BID TAWNY Administration Dextrose 25 ml 06/18/24 12:51 06/19/24 16:02 Dextrose 50%-Water Inj 50 Ml Syringe IV 07/18/24 12:50 25 ml Q15MIN PRN Administration BG 50-70 responsive npo pt Dextrose 50 ml 06/18/24 12:51 Dextrose 50%-Water Inj 50 Ml Syringe IV 07/18/24 12:50 Q15MIN PRN BG <50 OR BG <70 & pt unresponsive Glucagon 1 mg 06/18/24 16:07 Glucagon Inj 1 Mg Vial IM Q15MIN PRN BG <70, and no IV access Piperacillin/Tazobactam/Dextrose 3.375 gm in 50 mls @ 12.5 mls/hr 06/18/24 22:00 06/20/24 13:24 Zosyn IV 06/25/24 21:59 12.5 mls/hr Q8HR TAWNY Administration Dextrose 1,000 mls @ 50 mls/hr 06/19/24 08:15 06/19/24 18:40 D5w IV 07/19/24 08:14 50 mls/hr .Q20H TAWNY Administration Lactated Ringer's 1,000 mls @ 125 mls/hr 06/20/24 08:37 06/20/24 08:41 Lactated Ringers IV 07/20/24 08:36 125 mls/hr .Q8H TAWNY Administration Plan Isadora De Souza is 83 yr F with PMH of hypertension, COPD, and CHF ejection fraction of 40-45%, COPD, depression presented to [facility] on 06/18 after found by EMS for altered mental status after she was found down at home by her daughter. Patient lives at home with daughter. Unknown for how long patient was down. She was admitted for treatment of hyperkalemia, rhabdomyolysis. #Rhabdomyolysis #Lactic acidosis-improving Recent ankle sprain, patient likely fell again and was left on ground for prolonged period. Patient was directly admitted to ICU from the ED for closer monitoring of urine output and fluid resuscitation. Continue monitoring urine output hourly with goal 100 cc/h ? Continue fluids D5W 50 cc/h and LR 175 cc/h ? trending CK levels -Trend lactic acid -Continue Lopes -Monitor I's and O's ? Nephrology consulted. Dr Pa suggesting continued aggressive fluid resuscitation. #Normocytic anemia Hb 8.3 on admission. Dropped to 6.0 while in ICU and received 1 unit PRBC. Occult blood positive. - GI consulted for evaluation of possible GI bleeding ? Daily CBC -Transfuse 1 unit PRBC if hemoglobin less than 7 #Abdominal pain #Transaminitis Initial exam in ED positive for tender to palpation. Reexamination abdominal physical exam is benign. Transaminitis most likely due to rhabdomyolysis. However general surgery GI was consulted concern for mesenteric ischemia Per surgery evaluation, less likely that patient is currently having ischemia. They will continue to monitor. CT abd/pelvis without contrast significant for increased density suggesting inflammatory/infectious etiology CT Abd/Pelvis with contrast ordered by ED to rule out mesenteric ischemia, may shed light on above hyperdensity noted by radiologist -started on Zosyn 3.375mg q8 (06/18 - ) in ICU - Continue monitoring liver enzymes #PNA Possible superimposed PNA seen on cxr with congestion. -continue with zosyn as above #HFmEF 40-45% Last TTE performed in 12/2022 -repeat echo -monitor volume status to avoid overload #Peripheral artery disease #Hx of carotid endarterectomy Severe bilateral peripheral obstructive arterial disease on LE doppler. Severe PAD noted on physical exam diminished/absent pedal pulses, doppler showed severe PAD, courtesy called vascular surgeon Dr Pruitt who agreed to see patient outpatient as this is a more chronic condition. -holding Plavix and statin #15mm spiculated pulmonary nodule in LLL Nodule was not spotted in CT chest performed in 12/2022 Will need f/u with repeat CT scan in 3 months -follow up outpatient #Troponinemia-resolved #Hyperglycemia, resolved #Elevated beta hydroxybutyrate-resolved #Hypoglycemia-resolved #Chronic normocytic anemia, stable #Hyperkalemia, resolved #Altered mental status in setting of shock-resolved Health maintenance: Dispo: GI consult, fluids for rhabdo FEN: regular DVT prophylaxis: Subcu heparin CODE STATUS: Full code The patient's management plan was discussed with my attending physician Dr. Vyas. Lena Sawant, PGY-1 Attending Provider Attestation/Addendum I have discussed and was present for the essential components of the history, physical examination, diagnosis, and treatment plan with the resident. I agree with the patient's care as documented by the resident and amended herein by me. Kishore Vyas, DO. Patient seen and evaluated this AM. Vital signs stable, patient afebrile overnight. Patient currently being treated for rhabdo myelitis and there was a concern of mesenteric ischemia in the ICU however low concern on our end. Transaminitis is also apparent the patient however is improving. Significant labs today demonstrate a downtrending hemoglobin 7.1, downtrending WBC, 22 today, potassium 3.1, BUN 43 and creatinine 1.6. Echo still pending, CK is downtrending, 17,000 today, stool occult was positive hence GI has been consulted for possible bleed, blood cultures negative thus far. Will continue IVF, Zosyn, hold Plavix for now in setting of GI bleed and monitor closely, appreciate specialist recommendations. Of note, general surgery consulted however considering the patient's abdomen is soft, no surgery required at this time. Although this document has been carefully reviewed, there may still be some phonetic and other typographical errors. These errors are purely grammatical due to imperfections in the software program and should not be construed in any way to compromise the substance of the patient's medical care during this visit.
[2024-06-20] MEDS: DEXTROSE 5%-WATER 1,000 ML 50 ML IV (15:47)
[2024-06-20 23:28] LABS: Glucose 101 mg/dL (74-106)
[2024-06-21] VITALS (8 sets, daily range): BP systolic 115–139; BP diastolic 55–90; PULSE 78–102; RESP 13–18; TEMP 36.2–36.8; O2SAT 88–100; BMI 24.5
[2024-06-21] MEDS: HYDROcodone/APAP 5/325 TABLET 1 TAB PO ×3 (00:53→20:35)
[2024-06-21] MEDS: RINGERS LACTATED 1000 ML 1,000 ML 125 ML IV ×2 (03:12→11:18)
[2024-06-21] MEDS: PIPER/TAZO 3.375 GM PREMIX 3.375 GM/50 ML BAG IV (05:00)
[2024-06-21 06:59] LABS: Alanine Aminotransferase 321 U/L (10-49); Albumin, Serum 2.5 gm/dL (3.4-4.8); Albumin/Globulin Ratio 1.3 (1.2-2.2); Alkaline Phosphatase 85 U/L (46-116); Anion Gap 8 (7-16); Aspartate Amino Transferase 646 U/L (0-34); BUN/Creatinine Ratio 26 Ratio (12-20); Bilirubin,Total 0.3 mg/dL (0.3-1.2); Blood Urea Nitrogen 41 mg/dL (9-23); Calcium (Corrected) 8.2 mg/dL (8.5-10.1); Carbon Dioxide 24.7 mMol/L (20.0-31.0); Chloride 109 mMol/L (98-107); Creatinine (Component) 1.6 mg/dL (0.6-1.3); Globulin 1.9 gm/dL (2.3-3.5); Glucose 83 mg/dL (74-106); Magnesium 1.8 mg/dL (1.6-2.6); Osmolality,Calculated 292 (275-295); Sodium 142 mMol/L (136-145); Total Protein 4.4 gm/dL (5.7-8.2); eGFR 32 See Note
[2024-06-21 07:08] LABS: Creatine Kinase 8341 U/L (34-171)
[2024-06-21] MEDS: BALSAM PERU/CASTOR OIL (Venelex) 60 GM TUBE TOP ×2 (08:36→20:37)
[2024-06-21 09:14] LABS: Basophils % (Auto) 0 % (0-2.5); Eosinophils % (Auto) 0 % (0-10); Hematocrit 24.6 % (36.0-46.0); Immature Granulocytes % (Auto) 1 % (0-0); Immature Granulocytes Auto 0.14 Thou/mm3 (0.00-0.00); Lymphocytes # (Auto) 0.7 Thou/mm3 (1.0-4.8); Lymphocytes % (Auto) 4 % (10-50); Mean Corpuscular HGB Conc 30.1 g/dl (31.0-37.0); Mean Corpuscular Hemoglobin 26.3 pg (25.0-35.0); Mean Corpuscular Volume 88 fL (80-100); Monocytes # (Auto) 0.6 Thou/mm3 (0.0-0.8); Monocytes % (Auto) 3 % (0-12); Neutrophils # (Auto) 17.8 Thou/mm3 (1.8-7.7); Neutrophils % (Auto) 92 % (37-80); Nucleated Red Blood Cell # 0.19 Thou/mm3 (0.00-0.00); Nucleated Red Blood Cell % 1 /100 WBC (0); Platelet Count 252 Thou/mm3 (140-440); Red Blood Count 2.81 Miln/mm3 (4.00-5.20); White Blood Count 19.3 Thou/mm3 (3.6-11.0)
[2024-06-21 09:15] LABS: Hemoglobin 7.4 g/dL (12.0-16.0)
--- NOTE | 2024-06-21 09:44 | XR_ITS ---
Examination: CTA abdominal aorta iliofemoral runoff. 2-D sagittal coronal reconstructions. 3-D reconstructions, vascular June 21, 2024 1058 hrs. Indications: Clinical diagnosis right leg acute ischemia, unable to palpate pulses today Technique: Multiple CTA images of the abdominal aorta iliofemoral runoff arterial vessels, 2.0 mm slice thickness, post intravenous administration 100 cc [id number] 2-D sagittal coronal reconstructions. 3-D reconstructions, vascular 3-D postprocessing, including vascular maximum intensity projection images, 3-D volume rendering Low dose protocols were performed. One or more of the following dose reduction techniques were used; automated exposure control, adjustment of the mA and/or KV according to patient size, use of iterative reconstruction technique. Findings: No thoracic aortic aneurysm dilatation Enlargement main pulmonary artery segment 39 mm Moderate to large bilateral pleural effusions Diffuse fatty infiltration throughout the liver Gallbladder wall appears mildly thickened, gallbladder is distended Spleen is not enlarged Atrophic left kidney No hydronephrosis No pancreatic mass Common bile duct 4 mm No bowel obstruction Mild ascites including mild free fluid in the pelvis Heavy calcification abdominal aorta Heavy calcification origins celiac and superior mesenteric axes, bilateral 3050% stenosis No significant left renal artery opacification Transverse dimension infrarenal abdominal aorta 32 mm Extensive 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 80% plus stenosis Significantly attenuated right superficial femoral artery with heavy calcification in the mid and distal portion and multiple areas of 50% plus stenosis Very small right popliteal artery Multiple proximal occlusions of the right anterior tibial and main continuation trunk An attenuated anterior tibial artery fills to the ankle No filling of the right dorsalis pedis artery Moderate calcification left common femoral artery 50% distal stenosis left superficial femoral artery image 276 Attenuated popliteal artery Left anterior tibial posterior tibial arteries do fill to the ankle Impression: Pulmonary artery hypertension Recommend hepatobiliary sonography follow-up to exclude gallbladder wall thickening Atrophic left kidney Mild ascites Transverse dimension infrarenal abdominal aorta 32 mm Extensive 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
--- NOTE | 2024-06-21 10:51 | EKG_ITS ---
[facility] Test Date: 2024-06-21 Pat Name: ROSELYN EMERSON [facility] Gender: Female Refrigerator Repairman: TIAGO : 1940 Requested By: Khanh Porter Order Number: [id number] Reading MD: Khanh Porter Measurements Intervals [place] Rate: 83 P: PA: QRS: 22 QRSD: 62 T: 30 QT: 409 QTc: 483 Interpretive Statements ATRIAL FIBRILLATION LOW QRS VOLTAGE SEPTAL MYOCARDIAL INFARCTION , OF INDETERMINATE AGE MODERATE T-WAVE ABNORMALITY, CONSIDER LATERAL ISCHEMIA Compared to ECG 06/19/2024 20:19:26 Myocardial infarct finding now present T-wave abnormality now present Possible ischemia now present /store/S0/[id number]/[id number].pdf
[2024-06-21] MEDS: DEXTROSE 5%-WATER 1,000 ML 50 ML IV (11:19)
[2024-06-21] MEDS: Magnesium Sulfate 2 GM Ivpb 2 GM/50 ML BAG IV (11:48)
--- NOTE | 2024-06-21 13:38 | ESPR_ITS ---
Documentation for date of: 06/21/24 Subjective Subjective Interval history: Patient seen at beside. Overnight, patient was given [place] 5 x 1 due to leg pain. She continues to have bilateral lower extremity leg pain. Further imaging with CT abdomen showed Extensive thrombus in the distal abdominal aorta, 60-80% stenosis right common iliac artery, more than 80% stenosis in femoral artery, 50% stenosis left femoral artery. At this time patient is not a candidate for any blood thinning agents due to possible GI bleed that she was getting worked up for. Any further intervention to be done for PAD would need to be managed by vascular surgeon requiring transfer. Patient was updated about these findings and prognosis. She has decided to forego all invasive measurements and continue with hospice care. Patient has full decision-making capacity she is alert and oriented x 3. Daughter was updated as well, agrees with decision. Continue with pain management [place] 5 q6hr PRN. Stop daily labs, glucose checks. Exam Vital Signs Temp Pulse Resp BP Pulse Ox O2 Del Method O2 Flow Rate 97.9 F 88 18 138/90 H 100 Nasal Cannula 5 06/21/24 08:00 06/21/24 08:23 06/21/24 08:23 06/21/24 08:00 06/21/24 08:23 06/21/24 08:00 06/21/24 08:23 Narrative Exam General: Elderly female, No acute distress, cooperative HEENT: NCAT, No JVD noted. Mucosa dry. Pupils are equal and reactive to light bilaterally Cardiovascular: Normal S1 and S2. Regular rate and rhythm. Respiratory: Lungs are clear to auscultation bilaterally. No wheezing or crackles heard. Abdomen: Soft, nontender, not distended, normal bowel sounds. Skin: Warm to touch, dry, no rashes noted Musculoskeletal: No gross injuries. Able to move all 4 extremities. Dusky, absent bilateral pedal pulses. Multiple varicose veins Neuro: Alert and oriented x2. No focal neuro deficits. Psych: Normal affect and mood Objective Labs 06/21/24 08:15 06/21/24 13:05 Labs: Laboratory Results - last 24 hr 06/20/24 06/21/24 06/21/24 22:48 05:41 08:15 WBC 19.3 H RBC 2.81 L Hgb 7.4 L Hct 24.6 L MCV 88 MCH 26.3 MCHC 30.1 L RDW Std Deviation 58.0 H Plt Count 252 D Neut % (Auto) 92 H Lymph % (Auto) 4 L [place] % (Auto) 3 Eos % (Auto) 0 Baso % (Auto) 0 Neut # (Auto) 17.8 H Lymph # (Auto) 0.7 L [place] # (Auto) 0.6 Eos # (Auto) 0.0 Baso # (Auto) 0.0 Immature Gran # (Auto) 0.14 H Absolute Nucleated RBC 0.19 H Immature Gran % 1 H Nucleated RBC % 1 H Sodium 142 Potassium 4.0 D Chloride 109 H Carbon Dioxide 24.7 Anion Gap 8 BUN 41 H Creatinine 1.6 H Estim Creat Clear Calc 22.0 L eGFR 32 L BUN/Creatinine Ratio 26 H Glucose 101 83 Calculated Osmolality 292 Calcium 7.0 L Corrected Calcium 8.2 L Magnesium 1.8 Total Bilirubin 0.3 AST 646 H* ALT 321 H Alkaline Phosphatase 85 Total Creatine Kinase 8341 H D Total Protein 4.4 L Albumin 2.5 L Globulin 1.9 L Albumin/Globulin Ratio 1.3 ABG Interpretation ABG results: 06/18/24 06/18/24 06/18/24 13:32 16:05 22:00 ABG pH 7.42 Cancelled ABG pCO2 31 L Cancelled ABG pO2 62 L Cancelled ABG HCO3 20 Cancelled ABG O2 Saturation 91 Cancelled ABG Base Excess -4 L Cancelled VBG pH 6.95 L VBG pCO2 59 H VBG pO2 44 VBG Base Excess -18 L 06/19/24 06/19/24 02:38 05:08 ABG pH 7.44 ABG pCO2 33 ABG pO2 105 D ABG HCO3 22 ABG O2 Saturation 99 H ABG Base Excess -2 VBG pH 7.18 L VBG pCO2 51 VBG pO2 35 VBG Base Excess -9 L Quality Measures Quality Measures sepsis Current suspected stage: ruled out Possible source: pulmonary Blood cultures ordered: completed in ED Antibiotic ordered: No Advance care planning discussed with:: patient Assessment & Plan Assessment Current Active Medications: Generic Name Dose Route Start Last Admin Trade Name Freq PRN Reason Stop Dose Admin Acetaminophen 650 mg 06/18/24 16:03 Acetaminophen Supp 650 Mg Supp [place] 07/18/24 16:02 Q6HR PRN FEVER>101.5 Hydrocodone Bitart/Acetaminophen 1 tab 06/19/24 20:52 06/21/24 12:01 Hydrocodone/Apap 5/325 Tablet PO 06/24/24 20:51 1 tab Q6HR PRN Administration Pain 4-10 Balsam [place] Oil 0 gm 06/19/24 21:00 06/21/24 08:36 Balsam [place] Oil (Venelex) 60 Gm Tube TOP 07/19/24 20:59 1 applicatio BID TAWNY Administration Dextrose 25 ml 06/18/24 12:51 06/19/24 16:02 Dextrose 50%-Water Inj 50 Ml Syringe IV 07/18/24 12:50 25 ml Q15MIN PRN Administration BG 50-70 responsive npo pt Dextrose 50 ml 06/18/24 12:51 Dextrose 50%-Water Inj 50 Ml Syringe IV 07/18/24 12:50 Q15MIN PRN BG <50 OR BG <70 & pt unresponsive Glucagon 1 mg 06/18/24 16:07 Glucagon Inj 1 Mg Vial IM Q15MIN PRN BG <70, and no IV access Piperacillin/Tazobactam/Dextrose 3.375 gm in 50 mls @ 12.5 mls/hr 06/18/24 22:00 06/21/24 05:00 Zosyn IV 06/25/24 21:59 12.5 mls/hr Q8HR TAWNY Administration Dextrose 1,000 mls @ 50 mls/hr 06/19/24 08:15 06/21/24 11:19 D5w IV 07/19/24 08:14 50 mls/hr .Q20H TAWNY Administration Lactated Ringer's 1,000 mls @ 125 mls/hr 06/20/24 08:37 06/21/24 11:18 Lactated Ringers IV 07/20/24 08:36 125 mls/hr .Q8H TAWNY Administration Plan Isadora De Souza is 83 yr F with PMH of hypertension, COPD, and CHF ejection fraction of 40-45%, COPD, depression presented to [facility] on 06/18 after found by EMS for altered mental status after she was found down at home by her daughter. Patient lives at home with daughter. Unknown for how long patient was down. She was admitted for treatment of hyperkalemia, rhabdomyolysis. #Rhabdomyolysis-improving Recent ankle sprain, patient likely fell again and was left on ground for prolonged period. Patient was directly admitted to ICU from the ED for closer monitoring of urine output and fluid resuscitation. Continue monitoring urine output hourly with goal 100 cc/h ? stop LR but continue D5W due to low sugar readings -stop labs #Normocytic anemia Hb 8.3 on admission. Dropped to 6.0 while in ICU and received 1 unit PRBC. Occult blood positive. -cancel GI consult -stop daily labs #Abdominal pain #Transaminitis Initial exam in ED positive for tender to palpation. Reexamination abdominal physical exam is benign. Transaminitis most likely due to rhabdomyolysis. However general surgery GI was consulted concern for mesenteric ischemia Per surgery evaluation, less likely that patient is currently having ischemia. They will continue to monitor. CT abd/pelvis without contrast significant for increased density suggesting inflammatory/infectious etiology CT Abd/Pelvis with contrast ordered by ED to rule out mesenteric ischemia, may shed light on above hyperdensity noted by radiologist -stopped Zosyn 3.375mg q8 (06/18-06/21 ) -stop monitoring LFTs #PNA Possible superimposed PNA seen on cxr with congestion. -stop abx #HFmEF 40-45% #Peripheral artery disease #Hx of carotid endarterectomy Severe bilateral peripheral obstructive arterial disease on LE doppler. Severe PAD noted on physical exam diminished/absent pedal pulses, doppler showed severe PAD, courtesy called vascular surgeon Dr Pruitt who agreed to see patient outpatient as this is a more chronic condition. -holding Plavix and statin -will not pursue further workup or procedures #15mm spiculated pulmonary nodule in LLL #Troponinemia-resolved #Hyperglycemia, resolved #Elevated beta hydroxybutyrate-resolved #Hypoglycemia-resolved #Chronic normocytic anemia, stable #Hyperkalemia, resolved #Altered mental status in setting of shock-resolved #Lactic acidosis-resolved Health maintenance: Dispo: stop all labs, stop glucose checks, hospice FEN: regular DVT prophylaxis: none CODE STATUS: Full code The patient's management plan was discussed with my attending physician Dr. Vyas. Lena Sawant, PGY-1
[2024-06-21 13:44] LABS: Glucose 97 mg/dL (74-106); Thyroid Stimulating Hormone 2.39 uIU/mL (0.55-4.78)
--- NOTE | 2024-06-21 14:38 | PD.EVENT ---
Documentation for date of: 06/21/24 Event Note Event Note: Last night,, I got worried that the patient desired hospice care and was very upset that she wanted to leave AMA she was tired of the hospital and wanted to go home. Her daughter was able to calm her down, however we decided to revisit the topic of hospice care today to see if that is what she really wanted, hence myself and the medicine team went to bedside, called her daughter and had the discussion together at bedside. we discussed what hospice care would entail, to include no more hospital visits and for the focus to be on comfort only. The patient agreed, and stated that is what she wanted. I did explain to her the CTA findings which demonstrated numerous areas of severe stenosis, more notably Occlusions of the proximal right posterior tibial and right main continuation trunk indicating severe occlusive disease. I did let the patient and her daughter know these findings and that acute limb ischemia could be life-threatening from infection, etc. and they both understood, the patient still wanted to pursue hospice care. Unfortunately, hospice could not be provided at the patient's daughter home as the patient's daughter stated she could not take care of her mother and was fearful she may fall or injure herself again, hence we all decided on SNF placement for hospice care. pan tank worker notified, hospice referral order placed.
--- NOTE | 2024-06-21 15:35 | PC.SS ---
Director Of Sales And Marketing (TANYA) Nisha informed by Dr. Vyas that patient and daughter, Meghna Almazan, decided for patient to do hospice at a long-term facility. TANYA contacted patient's daughter, Meghna Almazan to discuss discharge plan. Meghna requested hospice services at SNF. Meghna's first choice for SNF is [facility]. TANYA completed SNF packet and sent it through [employer].
[2024-06-21] MEDS: POTASSIUM CHLORIDE 20 mEq TABCR PO (21:32)
[2024-06-22] VITALS (10 sets, daily range): BP systolic 135–155; BP diastolic 71–84; PULSE 79–171; RESP 13–26; TEMP 36.3–36.7; O2SAT 91–99; BMI 24.5
[2024-06-22] MEDS: HYDROcodone/APAP 5/325 TABLET 2 TAB PO ×3 (00:20→20:17)
[2024-06-22] MEDS: BALSAM PERU/CASTOR OIL (Venelex) 60 GM TUBE TOP ×2 (08:29→20:22)
[2024-06-22] MEDS: NICOTINE PATCH 21 MG/24 HR PATCH.TD24 TOP (12:36)
[2024-06-22] MEDS: METOPROLOL SUCCINATE XL 25 MG TABCR PO (12:36)
--- NOTE | 2024-06-22 13:14 | PC.SS ---
At 1035 AM, patient's daughter, Sussy contacted TANYA due to patient wanting to change her medical decision maker. SW met with patient at bedside. Patient appeared alert and oriented to self only; she was unaware of date, place, or reason for being in the hospital. SW informed Sussy that patient is now altered to make any changes to the alternate medical decision maker. TANYA explained that the best decision would be to do a family meeting with Dr. Vyas, and all the daughters: Meghna, Sussy and Tran. Dr. Vyas informed TANYA that after meeting with family. Patient requested to be a full code and receive full treatment. At this time, Dr. Vyas will attempt transfer for acute limb ischemia, and cosult GI for bleed.
[2024-06-22] MEDS: metroNIDAZOLE/NS 500 MG IVPB 500 MG/100 ML BAG 200 MG IV ×2 (13:45→22:04)
[2024-06-22] MEDS: RINGERS LACTATED 1000 ML 1,000 ML 70 ML IV (13:45)
[2024-06-22] MEDS: PREGABALIN 50 MG CAPSULE 100 MG PO ×2 (13:57→20:17)
[2024-06-22] MEDS: cefTRIAXone 2 GM in SODIUM CHLORIDE 0.9% (Popper) 50 ML IV (14:00)
[2024-06-22 14:03] LABS: Basophils % (Auto) 0 % (0-2.5); Eosinophils % (Auto) 0 % (0-10); Hematocrit 28.2 % (36.0-46.0); Immature Granulocytes % (Auto) 1 % (0-0); Lymphocytes # (Auto) 0.7 Thou/mm3 (1.0-4.8); Lymphocytes % (Auto) 3 % (10-50); Mean Corpuscular HGB Conc 29.4 g/dl (31.0-37.0); Mean Corpuscular Hemoglobin 25.6 pg (25.0-35.0); Mean Corpuscular Volume 87 fL (80-100); Monocytes # (Auto) 0.9 Thou/mm3 (0.0-0.8); Monocytes % (Auto) 4 % (0-12); Neutrophils # (Auto) 21.2 Thou/mm3 (1.8-7.7); Neutrophils % (Auto) 92 % (37-80); Nucleated Red Blood Cell # 0.16 Thou/mm3 (0.00-0.00); Nucleated Red Blood Cell % 1 /100 WBC (0); Platelet Count 297 Thou/mm3 (140-440); Red Blood Count 3.24 Miln/mm3 (4.00-5.20)
[2024-06-22 14:05] LABS: Hemoglobin 8.3 g/dL (12.0-16.0)
[2024-06-22 14:18] LABS: Alanine Aminotransferase 344 U/L (10-49); Albumin/Globulin Ratio 1.3 (1.2-2.2); Alkaline Phosphatase 92 U/L (46-116); Anion Gap 10 (7-16); Aspartate Amino Transferase 468 U/L (0-34); BUN/Creatinine Ratio 21 Ratio (12-20); Bilirubin,Total 0.3 mg/dL (0.3-1.2); Blood Urea Nitrogen 30 mg/dL (9-23); Calcium 7.7 mg/dL (8.3-10.6); Calcium (Corrected) 8.5 mg/dL (8.5-10.1); Chloride 107 mMol/L (98-107); Creatinine (Component) 1.4 mg/dL (0.6-1.3); Estimated Creatinine Clearance 25.1 mL/min (>60); Globulin 2.3 gm/dL (2.3-3.5); Glucose 92 mg/dL (74-106); Magnesium 2.2 mg/dL (1.6-2.6); Osmolality,Calculated 283 (275-295); Sodium 139 mMol/L (136-145); Total Protein 5.3 gm/dL (5.7-8.2); eGFR 37 See Note
--- NOTE | 2024-06-22 14:37 | PC.SS ---
Addendum entered by Nisha Seo 06/22/24 16:04: At 1514, Clinical Care ManagerNisha received a phone call from Kiesha who declined HLOC transfer due to being at capacity in ICU. Original Note: Clinical Care Manager (TANYA) Nisha informed by Dr. Vyas that patient was going to need a higher level of care (HLOC) transfer for vascular surgery and GI. At this time, patient is on a telemetry bed. SW met with patient and daughter, Sussy at bedside. Sussy corrolated information explained by Dr. Vyas and all family members are agreeable with HLOC transfer. SW explained barriers with insurance and will start making referrals to local hospitals: [facility], [facility], [facility], [facility], and [facility]. Sussy and patient are in agreement. At 1407, TANYA contacted [facility] and spoke to Kiesha ECHEVRARIA for transfer. TANYA faxed information. SW will follow-up Kiesha. Transfer will be continued by pumping supervisor-Mandy.
[2024-06-22 14:47] LABS: Creatine Kinase 3867 U/L (34-171)
--- NOTE | 2024-06-22 15:52 | PD.RESPRO ---
Documentation for date of: 06/22/24 Subjective Subjective Interval history: Patient seen and examined at bedside. Goals of care discussion held with patient's family, patient's 3 daughters at bedside, 2 daughters flew in from out of the state. Patient's prognosis explained to the patient, considering patient does have significantly advanced peripheral arterial disease with high suspicion of acute right lower limb ischemia. Patient's daughter and patient initially opted for hospice care, however whole family decided to change the treatment status and decided to pursue full treatment. Patient restarted on antibiotic therapy, patient's lab work significant for elevated CK of 3867, improved compared to yesterday, renal function has improved. Patient will be started on D5W, home medication pregabalin, metoprolol succinate resumed. Rapid response was called for the patient in the afternoon, patient does have episodes of heart rate going up to 160s, on examination patient was in sinus rhythm. Patient was was started on amiodarone drip overnight, however patient refused and reverted back to sinus rhythm. Patient's home dose metoprolol was resumed. Will consider cardiology consult and resuming amiodarone if patient's heart rate is elevated again. During the rapid patient's blood glucose was found to be in the 40s, improved with juice. Patient initially refused IV access and all medications however family at bedside convinced patient, IV access was obtained. Exam Vital Signs Temp Pulse Resp BP Pulse Ox O2 Del Method O2 Flow Rate 98.1 F 96 14 154/82 H 92 L Nasal Cannula 2 06/22/24 12:00 06/22/24 12:36 06/22/24 12:00 06/22/24 12:36 06/22/24 12:00 06/22/24 12:00 06/22/24 12:00 Narrative Exam General: Elderly female, No acute distress, cooperative HEENT: NCAT, No JVD noted. Mucosa dry. Pupils are equal and reactive to light bilaterally Cardiovascular: Normal S1 and S2. Regular rate and rhythm. Respiratory: Lungs are clear to auscultation bilaterally. No wheezing or crackles heard. Abdomen: Soft, nontender, not distended, normal bowel sounds. Skin: Warm to touch, dry, no rashes noted Musculoskeletal: No gross injuries. Able to move all 4 extremities. Right foot is dusky, absent bilateral pedal pulses, grayish discoloration noted on all toes. Multiple varicose veins Neuro: Alert and oriented x3. No focal neuro deficits. Psych: Normal affect and mood Objective Labs 06/23/24 08:05 06/23/24 08:05 Labs: Laboratory Results - last 24 hr 06/22/24 13:46 WBC 23.0 H RBC 3.24 L Hgb 8.3 L Hct 28.2 L MCV 87 MCH 25.6 MCHC 29.4 L RDW Std Deviation 59.0 H Plt Count 297 D Neut % (Auto) 92 H Lymph % (Auto) 3 L [place] % (Auto) 4 Eos % (Auto) 0 Baso % (Auto) 0 Neut # (Auto) 21.2 H Lymph # (Auto) 0.7 L [place] # (Auto) 0.9 H Eos # (Auto) 0.0 Baso # (Auto) 0.0 Immature Gran # (Auto) 0.20 H Absolute Nucleated RBC 0.16 H Immature Gran % 1 H Nucleated RBC % 1 H Sodium 139 Potassium 4.0 Chloride 107 Carbon Dioxide 22.0 Anion Gap 10 BUN 30 H Creatinine 1.4 H Estim Creat Clear Calc 25.1 L eGFR 37 L BUN/Creatinine Ratio 21 H Glucose 92 Calculated Osmolality 283 Calcium 7.7 L Corrected Calcium 8.5 Magnesium 2.2 Total Bilirubin 0.3 AST 468 H ALT 344 H Alkaline Phosphatase 92 Total Creatine Kinase 3867 H D Total Protein 5.3 L Albumin 3.0 L D Globulin 2.3 Albumin/Globulin Ratio 1.3 ABG Interpretation ABG results: 06/18/24 06/18/24 06/18/24 13:32 16:05 22:00 ABG pH 7.42 Cancelled ABG pCO2 31 L Cancelled ABG pO2 62 L Cancelled ABG HCO3 20 Cancelled ABG O2 Saturation 91 Cancelled ABG Base Excess -4 L Cancelled VBG pH 6.95 L VBG pCO2 59 H VBG pO2 44 VBG Base Excess -18 L 06/19/24 06/19/24 02:38 05:08 ABG pH 7.44 ABG pCO2 33 ABG pO2 105 D ABG HCO3 22 ABG O2 Saturation 99 H ABG Base Excess -2 VBG pH 7.18 L VBG pCO2 51 VBG pO2 35 VBG Base Excess -9 L Quality Measures Quality Measures sepsis Current suspected stage: sepsis Possible source: pulmonary Blood cultures ordered: completed in ED Antibiotic ordered: Yes Advance care planning discussed with:: patient Assessment & Plan Assessment Current Active Medications: Generic Name Dose Route Start Last Admin Trade Name Freq PRN Reason Stop Dose Admin Hydrocodone Bitart/Acetaminophen 2 tab 06/21/24 23:32 06/22/24 14:23 Hydrocodone/Apap 5/325 Tablet PO 06/24/24 20:51 2 tab Q6HR PRN Administration Pain 4-10 Albuterol 1 puff 06/22/24 12:43 Albuterol Inh 8 Gm INH 07/22/24 12:42 QID PRN shortness of breath or wheezing Balsam Rajinder/[place] Oil 0 gm 06/19/24 21:00 06/22/24 08:29 Balsam Rajinder/[place] Oil (Venelex) 60 Gm Tube TOP 07/19/24 20:59 1 applicatio BID TAWNY Administration Dextrose 25 ml 06/18/24 12:51 06/19/24 16:02 Dextrose 50%-Water Inj 50 Ml Syringe IV 07/18/24 12:50 25 ml Q15MIN PRN Administration BG 50-70 responsive npo pt Dextrose 50 ml 06/18/24 12:51 Dextrose 50%-Water Inj 50 Ml Syringe IV 07/18/24 12:50 Q15MIN PRN BG <50 OR BG <70 & pt unresponsive Glucagon 1 mg 06/18/24 16:07 Glucagon Inj 1 Mg Vial IM Q15MIN PRN BG <70, and no IV access Metronidazole 500 mg in 100 mls @ 200 mls/hr 06/22/24 12:49 06/22/24 13:45 Flagyl 500 Mg Iv IV 06/29/24 12:48 200 mls/hr Q8HR TAWNY Administration Ceftriaxone Sodium/Dextrose 2 gm in 50 mls @ 100 mls/hr 06/23/24 09:00 Rocephin/D5w 2gm IV 06/29/24 12:47 QDAY TAWNY Dextrose 1,000 mls @ 60 mls/hr 06/22/24 15:45 D5w IV 07/22/24 15:44 .[id number] TAWNY Metoprolol Succinate 25 mg 06/22/24 10:30 06/22/24 12:36 Metoprolol Succinate Xl 25 Mg Tabcr PO 07/22/24 10:29 25 mg QDAY TAWNY Administration Nicotine 21 mg 06/22/24 12:30 06/22/24 12:36 Nicotine Patch 21 Mg/24 Hr Patch.Td24 TOP 07/22/24 12:29 21 mg QDAY TAWNY Administration Pregabalin 100 mg 06/22/24 13:00 06/22/24 13:57 Pregabalin 50 Mg Capsule PO 07/22/24 12:59 100 mg BID TAWNY Administration Plan Assessment and plan: Summary: Isadora De Souza is 83 yr F with PMH of hypertension, COPD, and CHF ejection fraction of 40-45%, COPD, depression presented to [facility] on 06/18 after found by EMS for altered mental status after she was found down at home by her daughter. Patient lives at home with daughter. Unknown for how long patient was down. She was admitted for treatment of hyperkalemia, rhabdomyolysis. # Acute limb ischemia # Peripheral arterial disease # Hx of carotid endarterectomy #Leukocytosis Patient has elevated WBC count, physical exam shows right foot is dusky, absent bilateral pedal pulses, grayish discoloration noted on all toes. 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 60-80% stenosis right common iliac artery 80% plus stenosis right common femoral artery Significantly attenuated right superficial femoral artery with multiple 50% areas of stenosismiscellaneous You can occlusions of the proximal right posterior tibial and right main continuation trunk, severe occlusive disease 50% stenosis distal left superficial femoral artery Lower extremity duplex: Severe bilateral peripheral obstructive arterial disease Plan - Started on ceftriaxone and Flagyl (06/22- - No anticoagulation considering patient does have possible GI bleed - Consulted GI, appreciate recommendations - monitor closely - Transfer to higher level of care for vascular surgery evaluation #HFpEF 55-60%, Diastolic Heart Failure. Echocardiogram: Normal LV size and function. Estimated EF 55-60%. Mild LVH. Diastolic dysfunction present but cannot be graded because of the atrial fibrillation Normal RV size and systolic function. Estimated RVSP 65-70 mmHg - moderate to severely dilated. Mild MR and mildly thickened mitral leaflets. Mild AI. Moderate to severe TR. Dilated IVC. Mildly dilated LA and RA. Plan: - Strict I&O - Fluid restriction ~ 2L - Daily weight #Acute kidney injury, resolving #Rhabdomyolysis-improving Recent ankle sprain, patient likely fell again and was left on ground for prolonged period. Patient was directly admitted to ICU from the ED for closer monitoring of urine output and fluid resuscitation. Continue monitoring urine output hourly with goal 100 cc/h 06/22 - Renal function today shows BUN 30, creatinine 1.4, GFR 37, CK 3867 ?Continue D5W 60cc/h due to low blood glucose - Will no longer trend CK, less than 5000 #Abdominal pain #Transaminitis, improving Initial exam in ED positive for tender to palpation. Reexamination abdominal physical exam is benign. Transaminitis most likely due to rhabdomyolysis. However general surgery GI was consulted concern for mesenteric ischemia Per surgery evaluation, less likely that patient is currently having ischemia. They will continue to monitor. CT abd/pelvis without contrast significant for increased density suggesting inflammatory/infectious etiology CT Abd/Pelvis with contrast ordered by ED to rule out mesenteric ischemia, may shed light on above hyperdensity noted by radiologist Patient received IV Zosyn 3.375mg q8 (06/18-06/21 ) - High suspicion of mesenteric ischemia, possibly chronic, patient does have extensive peripheral arterial disease, due to significant history of smoking of more than 60 pack years - Continue to monitor for abdominal pain, continue IV antibiotics - Avoid hepatotoxic agents, trend CMP every day #Normocytic anemia Hb 8.3 on admission. Dropped to 6.0 while in ICU and received 1 unit PRBC. Occult blood positive. -Consulted gastroenterology, appreciate recommendations -Obtain CBC in a.m. #PNA Possible superimposed PNA seen on cxr with congestion. -Continue antibiotics #15mm spiculated pulmonary nodule in LLL #Troponinemia-resolved #Hyperglycemia, resolved #Elevated beta hydroxybutyrate-resolved #Hypoglycemia-resolved #Hyperkalemia, resolved #Altered mental status in setting of shock-resolved #Lactic acidosis-resolved Health maintenance: Dispo: Pending transfer for vascular surgical intervention FEN: regular DVT prophylaxis: none CODE STATUS: Full code The patient's management plan was discussed with my attending physician Dr. Vyas. Rivera Parrish, PGY-1 Attending Provider Attestation/Addendum I have discussed and was present for the essential components of the history, physical examination, diagnosis, and treatment plan with the resident. I agree with the patient's care as documented by the resident and amended herein by me. Kishore Vyas DO. Patient seen and evaluated this AM. No acute events overnight, vital signs stable, patient afebrile. Did meet with the patient and her family at bedside, the patient has 2 daughters that are from out of state who have talked with the patient and convince her not to go to hospice and she will remain full code at this time. As such, we continue broad-spectrum antibiotics, we did start the patient on metoprolol succinate 25 mg daily to resolve intermittent periods of what appeared to be atrial fibrillation with RVR which appeared to help. If arrhythmia continues may consider amiodarone drip. We also did perform a CTA runoff on the patient which has numerous lesions, concerning for acute limb ischemia. The patient did have vascular surgery consult while she was in the ED however at that time she still was had pulses in both feet however as of today, a pulse could not be felt in her right foot and she has demonstrated more pain. I did speak with a vascular surgeon at [facility] however due to the extensive nature of the patient's disease and other comorbidities, she states she cannot offer her surgery at this time, if it got worse she would probably need an [id number]-myo-medy amputation. I did explain this to the family. We were also working the patient up for possible GI bleed, GI was consulted, hemoglobin low but stable, no obvious signs of bleeding however FOBT was positive. Gastroenterology will be available on Sunday. Once the patient is cleared from gastroenterology standpoint, I believe the patient could be discharged, I think she is hospice appropriate at this time's she states she just wants to go home and smoke , she stated to me 2 days prior that she does not want any more intervention nor any other hospital visitations. I believe we can discharge her to SNF in the next 2 to 3 days pending specialist recommendations then her daughters can decide where she wants her to live and make arrangements from there. Will continue to monitor closely while she is here. Although this document has been carefully reviewed, there may still be some phonetic and other typographical errors. These errors are purely grammatical due to imperfections in the software program and should not be construed in any way to compromise the substance of the patient's medical care during this visit.
--- NOTE | 2024-06-22 16:45 | PD.RESDS ---
Planned Discharge Date 06/22/24 DS: Providers Provider Date of admission: 06/18/24 16:16 Primary care physician: Physician No Primary/Family Admitting Provider: Ann Huddleston MD Attending Provider on Admission: Shaan Vyas DO Consults: 06/18/24 13:58 Consult to General Surgery Stat Comment: Consulting Provider: Liam Monae 06/18/24 14:54 Consult to Nephrology Stat Comment: Consulting Provider: Lana Pa 06/19/24 01:42 Referral Wound Care Urgent Comment: NEW ADMIT. RED AREAS TO R. HIP AND R. LOWER BACK 06/19/24 15:01 Referral Nutritional Services Routine Comment: Wounds 06/20/24 10:31 Referral Physical Therapy Routine Comment: Physician Instructions: 06/21/24 14:36 Referral Hospice Stat Comment: 06/22/24 12:52 Consult to Gastroenterology Urgent Comment: GI Bleed Consulting Provider: Vishnu Workman 06/22/24 12:55 Referral - Engineering Officer Stat Service Needed for Transfer: Vascular Surgery Addl Comments:: PAD Acute Limb Ischemia Attending Provider on DC: Shaan Vyas DO Discharging Provider: Shaan Vyas DO Anticipated date of discharge: 06/22/24 DS: Diagnosis Problem List Completed Was Problem List Reviewed/Reconciled?: Yes Hospital Course Hospital Course Hospital course: Hospital course: Ms. Isadora De Souza is a 83-year-old female with past medical history of hypertension, COPD, and CHF ejection fraction of 40-45%, COPD, depression presented to [facility] on 06/18 after found by EMS for altered mental status after she was found down at home by her daughter. Patient lives at home with daughter. Unknown for how long patient was down. She was admitted to the intensive care unit for treatment of rhabdomyolysis and hyperkalemia. Patient was started on aggressive IV fluid resuscitation and Lasix, urine output was maintained at significant goal, nephrology was consulted for recommendations. Patient's renal function improved, there was underlying suspicion of bowel ischemia in setting of severe PAD which patient has due to extensive history of significant smoking in the past, vascular surgeon was consulted in ICU for diminished/absent pedal pulses and duplex scan did show severe PAD, considering patient was significantly ill with rhabdo and hyperkalemia, outpatient workup was recommended. With the progression of hospital course patient had worsening of pedal pulses, diminished pulses noted on right foot, CTA abdomen showed multiple 50% areas of stenosis, significant occlusions of proximal right posterior tubular, right main continuation trunk severe occlusive disease 50% stenosis distal left superficial femoral artery. On physical exam absent bilateral pedal pulses noted, grayish discoloration of right foot and toes noted significant concern of acute limb ischemia, patient was not started on anticoagulation due to underlying possible GI bleed. Initially the case was discussed with patient and patient's daughter and they decided to pursue hospice care and treatment was discontinued, however patient's remaining daughters flew in from out of state, goals of care discussion with family was held, and family and patient decided to pursue full treatment. Considering patient has high suspicion of acute limb ischemia and CTA findings patient will significantly benefit from vascular surgery evaluation and consultation, unfortunately the facilities are not available at this hospital and hence decision was made to transfer the patient to higher level of care. Patient is currently on IV antibiotics for management of possible acute limb ischemia, no anticoagulation started considering high suspicion of GI bleed and is pending GI evaluation. Patient is requiring higher level of care and is stable for transfer. Discharge diagnosis: #Acute limb ischemia # Severe peripheral arterial disease #Hx of carotid endarterectomy #Leukocytosis #HFpEF 55-60%, Diastolic Heart Failure. #Acute kidney injury, resolving #Rhabdomyolysis-improving #Abdominal pain, suspicion of chronic mesenteric ischemia #Transaminitis, improving #Normocytic anemia #PNA #Hypertension #Chronic smoker, greater than 60 pack years #Troponinemia #COPD #Lactic acidosis #Hypoglycemia Case discussed with Attending Dr. Vyas. Rivera Parrish PGY1 Disclaimer: This note was dictated by speech recognition. Minor errors in bench worker apprentice may be present due to voice recognition software. Time Spent with Patient Time attestation: Total time spent providing and/or coordinating discharge services: Greater than 30-minute Time spent: Greater than 30 minutes Exam Vital Signs Temp Pulse Resp BP Pulse Ox O2 Del Method O2 Flow Rate 98.1 F 96 14 154/82 H 92 L Nasal Cannula 2 06/22/24 12:00 06/22/24 12:36 06/22/24 12:00 06/22/24 12:36 06/22/24 12:00 06/22/24 12:00 06/22/24 12:00 Narrative Exam General: Elderly female, No acute distress, cooperative HEENT: NCAT, No JVD noted. Mucosa dry. Pupils are equal and reactive to light bilaterally Cardiovascular: Normal S1 and S2. Regular rate and rhythm. Respiratory: Lungs are clear to auscultation bilaterally. No wheezing or crackles heard. Abdomen: Soft, nontender, not distended, normal bowel sounds. Skin: Warm to touch, dry, no rashes noted Musculoskeletal: No gross injuries. Able to move all 4 extremities. Right foot is dusky, absent bilateral pedal pulses, grayish discoloration noted on all toes. Multiple varicose veins Neuro: Alert and oriented x3. No focal neuro deficits. Psych: Normal affect and mood Discharge Plan Plan Patient Disposition: HOME (Self Care) Patient condition on transfer: Stable Prescriptions/Referrals Prescriptions/Med Rec: New doxycycline hyclate 100 mg capsule 100 mg PO BID 5 Days Qty: 10 0RF metronidazole 500 mg tablet 500 mg PO Q8H 5 Days Qty: 15 0RF Continued hydrocodone-acetaminophen 10-325 mg Tablet 1 tab PO BID Qty: 0 tizanidine 4 mg Tablet 4 mg PO Q8HR PRN (Reason: Dizziness) amitriptyline 25 mg tablet 25 mg PO HS Patient Comments: TAKE ONE TABLET BY MOUTH EVERY EVENING clopidogrel [Plavix] 75 mg Tablet 75 mg PO QDAY lansoprazole [Prevacid] 30 mg Capsule,Delayed Release(Dr/Ec) 30 mg PO QDAY montelukast [Singulair] 10 mg Tablet 10 mg PO QDAY meclizine 12.5 mg Tablet 12.5 mg PO TID PRN (Reason: Dizziness) sertraline 100 mg Tablet 100 mg PO QDAY misoprostol 200 mcg Tablet 200 mcg PO BID pregabalin 100 mg Capsule 100 mg PO BID metoprolol succinate 25 mg tablet extended release 24 hr 25 mg PO QDAY Patient Comments: TAKE 1 TABLET BY MOUTH EVERY DAY Spiriva Respimat 2.5 mcg/actuation mist 2 inh inhalation QAM Qty: 4 1RF albuterol sulfate 90 mcg/actuation HFA aerosol inhaler 1 inh inhalation QID PRN (Reason: shortness of breath or wheezing) Qty: 6.7 2RF furosemide 40 mg tablet 40 mg PO QDAY Qty: 30 1RF lisinopril 40 mg tablet 40 mg PO QDAY Qty: 30 1RF Held atorvastatin 10 mg Tablet 10 mg PO QPM Hold Instructions: Resume on 07/08/24. Hold until you see your PCP and repeat labs. diclofenac sodium 75 mg Tablet,Delayed Release (Dr/Ec) 75 mg PO BID Hold Instructions: Resume on 07/08/24. Hold until you see PCP. Referrals: No Primary/Family,Physician [Primary Care Provider] - Patient/Caregiver Discharge Instructions Other Discharge Activity Instructions:: Resume previous medications. Complete metronidazole 500 mg 3 times a day and doxycycline 100 mg twice a day for 5 days for treatment of infection. Recommend to follow-up with PCP to obtain consult for evaluation by vascular surgeon. Repeat lab work in 1 week to check hemoglobin. Education Materials: Rhabdomyolysis, Critical Limb Ischemia Print Language: Belgian Stand Alone Forms: Dianne Award Info., Patient Portal Info Letter Discharge Order Discharge Orders: Discharge (Routine); Ordered 06/24/24 Ordered By: Lena Sawant Quality Discharge Quality Measures none MD Attestestation MD Attestation Patient not discharged, see progress note
--- NOTE | 2024-06-22 17:19 | PC.CC ---
Sara from [facility] called back at this time and states that the transfer is cancelled, that the doctor said they would not be able to revascularize the leg and it would have to be amoutated and suggested hospice, Per Sara Vyas to talk to family, Charge nurse Donna made aware
[2024-06-22] MEDS: DEXTROSE 5%-WATER 1,000 ML 60 ML IV (18:47)
[2024-06-23] VITALS (9 sets, daily range): BP systolic 112–163; BP diastolic 51–88; PULSE 71–86; RESP 12–20; TEMP 36.3–36.8; O2SAT 88–100; BMI 24.5
[2024-06-23] MEDS: ALBUTEROL INH 8 GM 1 PUFF INH (00:53)
[2024-06-23] MEDS: HYDROcodone/APAP 5/325 TABLET 2 TAB PO ×3 (04:14→22:12)
[2024-06-23] MEDS: metroNIDAZOLE/NS 500 MG IVPB 500 MG/100 ML BAG 200 MG IV (05:08)
[2024-06-23 08:20] LABS: Basophils % (Auto) 0 % (0-2.5); Eosinophils # (Auto) 0.1 Thou/mm3 (0.0-0.5); Eosinophils % (Auto) 1 % (0-10); Hematocrit 24.8 % (36.0-46.0); Immature Granulocytes % (Auto) 1 % (0-0); Immature Granulocytes Auto 0.18 Thou/mm3 (0.00-0.00); Lymphocytes % (Auto) 5 % (10-50); Mean Corpuscular HGB Conc 29.8 g/dl (31.0-37.0); Mean Corpuscular Hemoglobin 25.8 pg (25.0-35.0); Mean Corpuscular Volume 86 fL (80-100); Monocytes # (Auto) 1.1 Thou/mm3 (0.0-0.8); Monocytes % (Auto) 6 % (0-12); Neutrophils # (Auto) 16.1 Thou/mm3 (1.8-7.7); Neutrophils % (Auto) 87 % (37-80); Nucleated Red Blood Cell # 0.05 Thou/mm3 (0.00-0.00); Nucleated Red Blood Cell % 0 /100 WBC (0); Platelet Count 352 Thou/mm3 (140-440); RDW Standard Deviation 57.5 fL (36.4-46.3); Red Blood Count 2.87 Miln/mm3 (4.00-5.20); White Blood Count 18.5 Thou/mm3 (3.6-11.0)
[2024-06-23 08:25] LABS: Hemoglobin 7.4 g/dL (12.0-16.0)
[2024-06-23] MEDS: NICOTINE PATCH 21 MG/24 HR PATCH.TD24 TOP (08:46)
[2024-06-23] MEDS: PREGABALIN 50 MG CAPSULE 100 MG PO ×2 (08:46→20:39)
[2024-06-23] MEDS: METOPROLOL SUCCINATE XL 25 MG TABCR PO (08:46)
[2024-06-23] MEDS: BALSAM PERU/CASTOR OIL (Venelex) 60 GM TUBE TOP ×2 (08:47→20:39)
[2024-06-23 08:49] LABS: Alanine Aminotransferase 292 U/L (10-49); Albumin, Serum 2.8 gm/dL (3.4-4.8); Albumin/Globulin Ratio 1.3 (1.2-2.2); Alkaline Phosphatase 81 U/L (46-116); Anion Gap 6 (7-16); Aspartate Amino Transferase 319 U/L (0-34); BUN/Creatinine Ratio 26 Ratio (12-20); Bilirubin,Total 0.2 mg/dL (0.3-1.2); Blood Urea Nitrogen 31 mg/dL (9-23); Calcium 7.4 mg/dL (8.3-10.6); Calcium (Corrected) 8.4 mg/dL (8.5-10.1); Carbon Dioxide 23.5 mMol/L (20.0-31.0); Chloride 108 mMol/L (98-107); Creatinine (Component) 1.2 mg/dL (0.6-1.3); Estimated Creatinine Clearance 29.3 mL/min (>60); Globulin 2.1 gm/dL (2.3-3.5); Glucose 122 mg/dL (74-106); Osmolality,Calculated 281 (275-295); Potassium 3.7 mMol/L (3.4-5.1); Sodium 137 mMol/L (136-145); Total Protein 4.9 gm/dL (5.7-8.2); eGFR 45 See Note
[2024-06-23] MEDS: cefTRIAXone/D5w 2gm 2 GM/50 ML BAG IV (09:27)
--- NOTE | 2024-06-23 09:30 | PC.NURSE ---
Dr. Vyas made aware of pt with no IV access. Bilateral arms swollen and weeping with inablitly to successfully insert a PIV after numerous [address] Vyas states that is fine at this time and will HOLD IVF and IV abx. Charge nurse Norm MORA made aware.
--- NOTE | 2024-06-23 10:39 | PC.CC ---
[address] Vyas regarding the need for transfer the pt. Dr. Arita stated he already spoke to two vascular surgeons yesterday and they both said it is too complex and there is nothing they can do for the pt. Got orders to cancel the transfer.
--- NOTE | 2024-06-23 10:56 | PC.SS ---
Follow up note: Hospice was cancelled. Pt is is higher level of care transfer.
--- NOTE | 2024-06-23 14:48 | ESPR_ITS ---
<Statement entered by Khanh Porter MD - 06/24/24 08:05> I discussed with and supervised the hospitality internship physician involved in the care of this patient. Patient assessment and plan was discussed with entire medicine team, including my attending. I agree with the assessment and plan as documented by hospitality internship doctor. Patient care was discussed with my attending physician Dr. Lilliam Porter, PGY-2 Documentation for date of: 06/23/24 Subjective Subjective Interval history: Patient seen and examined at bedside. No overnight events. Complains of LE pain. Two vascular surgeons were contacted in regards to management/surgery for her limb ischemia. They were not willing to accept patient due to her complicated history. Transfer for care at higher institution was canceled. Patient to continue on antibiotic therapy in setting of PNA and possible GI infection. CK is downtrending Will hold fluids and antibiotics as IV has infiltrated and patient is hard stick. Nursing staff had attempted 10-12 times with ultrasound. Tele reviewed-in NSR rate 80-90. BS this morning 90. Discharge pending placement in SNF and final GI recs for possible bleed. Exam Vital Signs Temp Pulse Resp BP Pulse Ox O2 Del Method O2 Flow Rate 97.4 F 78 13 112/51 L 95 Nasal Cannula 1 06/23/24 12:00 06/23/24 12:00 06/23/24 12:00 06/23/24 12:00 06/23/24 12:00 06/23/24 12:00 06/23/24 12:00 Narrative Exam General: Elderly female, No acute distress, cooperative HEENT: NCAT, No JVD noted. Mucosa dry. Pupils are equal and reactive to light bilaterally Cardiovascular: Normal S1 and S2. Regular rate and rhythm. Respiratory: Lungs are clear to auscultation bilaterally. No wheezing or crackles heard. Abdomen: Soft, nontender, not distended, normal bowel sounds. Skin: Warm to touch, dry, no rashes noted Musculoskeletal: No gross injuries. Able to move all 4 extremities. Right foot is dusky, absent bilateral pedal pulses, grayish discoloration noted on all toes. Multiple varicose veins Neuro: Alert and oriented x3. No focal neuro deficits. Psych: Normal affect and mood Objective Labs 06/23/24 08:05 06/23/24 08:05 Labs: Laboratory Results - last 24 hr 06/23/24 08:05 WBC 18.5 H RBC 2.87 L Hgb 7.4 L Hct 24.8 L MCV 86 MCH 25.8 MCHC 29.8 L RDW Std Deviation 57.5 H Plt Count 352 D Neut % (Auto) 87 H Lymph % (Auto) 5 L Moca % (Auto) 6 Eos % (Auto) 1 Baso % (Auto) 0 Neut # (Auto) 16.1 H Lymph # (Auto) 1.0 Moca # (Auto) 1.1 H Eos # (Auto) 0.1 Baso # (Auto) 0.0 Immature Gran # (Auto) 0.18 H Absolute Nucleated RBC 0.05 H Immature Gran % 1 H Nucleated RBC % 0 PT 11.0 INR 1.0 Sodium 137 Potassium 3.7 Chloride 108 H Carbon Dioxide 23.5 Anion Gap 6 L BUN 31 H Creatinine 1.2 Estim Creat Clear Calc 29.3 L eGFR 45 L BUN/Creatinine Ratio 26 H Glucose 122 H Calculated Osmolality 281 Calcium 7.4 L Corrected Calcium 8.4 L Magnesium 2.0 Total Bilirubin 0.2 L AST 319 H ALT 292 H Alkaline Phosphatase 81 Total Protein 4.9 L Albumin 2.8 L Globulin 2.1 L Albumin/Globulin Ratio 1.3 ABG Interpretation ABG results: 06/18/24 06/18/24 06/18/24 13:32 16:05 22:00 ABG pH 7.42 Cancelled ABG pCO2 31 L Cancelled ABG pO2 62 L Cancelled ABG HCO3 20 Cancelled ABG O2 Saturation 91 Cancelled ABG Base Excess -4 L Cancelled VBG pH 6.95 L VBG pCO2 59 H VBG pO2 44 VBG Base Excess -18 L 06/19/24 06/19/24 02:38 05:08 ABG pH 7.44 ABG pCO2 33 ABG pO2 105 D ABG HCO3 22 ABG O2 Saturation 99 H ABG Base Excess -2 VBG pH 7.18 L VBG pCO2 51 VBG pO2 35 VBG Base Excess -9 L Quality Measures Quality Measures none Advance care planning discussed with:: patient and child Assessment & Plan Assessment Current Active Medications: Generic Name Dose Route Start Last Admin Trade Name Freq PRN Reason Stop Dose Admin Hydrocodone Bitart/Acetaminophen 2 tab 06/21/24 23:32 06/23/24 04:14 Hydrocodone/Apap 5/325 Tablet PO 06/24/24 20:51 2 tab Q6HR PRN Administration Pain 4-10 Albuterol 1 puff 06/22/24 12:43 06/23/24 00:53 Albuterol Inh 8 Gm INH 07/22/24 12:42 1 puff QID PRN Administration shortness of breath or wheezing Balsam [place] Oil 0 gm 06/19/24 21:00 06/23/24 08:47 Balsam [place] Oil (Venelex) 60 Gm Tube TOP 07/19/24 20:59 1 applicatio BID TAWNY Administration Dextrose 25 ml 06/18/24 12:51 06/19/24 16:02 Dextrose 50%-Water Inj 50 Ml Syringe IV 07/18/24 12:50 25 ml Q15MIN PRN Administration BG 50-70 responsive npo pt Dextrose 50 ml 06/18/24 12:51 Dextrose 50%-Water Inj 50 Ml Syringe IV 07/18/24 12:50 Q15MIN PRN BG <50 OR BG <70 & pt unresponsive Glucagon 1 mg 06/18/24 16:07 Glucagon Inj 1 Mg Vial IM Q15MIN PRN BG <70, and no IV access Metronidazole 500 mg in 100 mls @ 200 mls/hr 06/22/24 12:49 06/23/24 05:08 Flagyl 500 Mg Iv IV 06/29/24 12:48 200 mls/hr Q8HR TAWNY Administration Ceftriaxone Sodium/Dextrose 2 gm in 50 mls @ 100 mls/hr 06/23/24 09:00 06/23/24 09:27 Rocephin/D5w 2gm IV 06/29/24 12:47 100 mls/hr QDAY TAWNY Administration Dextrose 1,000 mls @ 60 mls/hr 06/22/24 15:45 06/22/24 18:47 D5w IV 07/22/24 15:44 60 mls/hr .[id number] TAWNY Administration Metoprolol Succinate 25 mg 06/22/24 10:30 06/23/24 08:46 Metoprolol Succinate Xl 25 Mg Tabcr PO 07/22/24 10:29 25 mg QDAY TAWNY Administration Nicotine 21 mg 06/22/24 12:30 06/23/24 08:46 Nicotine Patch 21 Mg/24 Hr Patch.Td24 TOP 07/22/24 12:29 21 mg QDAY TAWNY Administration Pregabalin 100 mg 06/22/24 13:00 06/23/24 08:46 Pregabalin 50 Mg Capsule PO 07/22/24 12:59 100 mg BID TAWNY Administration Plan Assessment and plan: Summary: Isadora De Souza is 83 yr F with PMH of hypertension, COPD, and CHF ejection fraction of 40-45%, COPD, depression presented to [facility] on 06/18 after found by EMS for altered mental status after she was found down at home by her daughter. Patient lives at home with daughter. Unknown for how long patient was down. She was admitted for treatment of hyperkalemia, rhabdomyolysis. # Acute limb ischemia # Peripheral arterial disease # Hx of carotid endarterectomy #Leukocytosis Patient has elevated WBC count, physical exam shows right foot is dusky, absent bilateral pedal pulses, grayish discoloration noted on all toes. 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 60-80% stenosis right common iliac artery 80% plus stenosis right common femoral artery Significantly attenuated right superficial femoral artery with multiple 50% areas of stenosismiscellaneous You can occlusions of the proximal right posterior tibial and right main continuation trunk, severe occlusive disease 50% stenosis distal left superficial femoral artery Lower extremity duplex: Severe bilateral peripheral obstructive arterial disease Plan - Started on ceftriaxone and Flagyl (06/22- - No anticoagulation considering patient does have possible GI bleed - Consulted GI, appreciate recommendations - monitor closely - Transfer to higher level of care for vascular surgery evaluation #HFpEF 55-60%, Diastolic Heart Failure. Echocardiogram: Normal LV size and function. Estimated EF 55-60%. Mild LVH. Diastolic dysfunction present but cannot be graded because of the atrial fibrillation Normal RV size and systolic function. Estimated RVSP 65-70 mmHg - moderate to severely dilated. Mild MR and mildly thickened mitral leaflets. Mild AI. Moderate to severe TR. Dilated IVC. Mildly dilated LA and RA. Plan: - Strict I&O - Fluid restriction ~ 2L - Daily weight #Acute kidney injury, resolving #Rhabdomyolysis-improving Recent ankle sprain, patient likely fell again and was left on ground for prolonged period. Patient was directly admitted to ICU from the ED for closer monitoring of urine output and fluid resuscitation. Continue monitoring urine output hourly with goal 100 cc/h 06/22 - Renal function today shows BUN 30, creatinine 1.4, GFR 37, CK 3867 ?Continue D5W 60cc/h due to low blood glucose (holding for now as patient does not have IV access) - Will no longer trend CK, less than 5000 #Abdominal pain #Transaminitis, improving Initial exam in ED positive for tender to palpation. Reexamination abdominal physical exam is benign. Transaminitis most likely due to rhabdomyolysis. However general surgery GI was consulted concern for mesenteric ischemia Per surgery evaluation, less likely that patient is currently having ischemia. They will continue to monitor. CT abd/pelvis without contrast significant for increased density suggesting inflammatory/infectious etiology CT Abd/Pelvis with contrast ordered by ED to rule out mesenteric ischemia, may shed light on above hyperdensity noted by radiologist Patient received IV Zosyn 3.375mg q8 (06/18-06/21 ) - High suspicion of mesenteric ischemia, possibly chronic, patient does have extensive peripheral arterial disease, due to significant history of smoking of more than 60 pack years - Continue to monitor for abdominal pain, continue IV antibiotics - Avoid hepatotoxic agents, trend CMP every day #Normocytic anemia Hb 8.3 on admission. Dropped to 6.0 while in ICU and received 1 unit PRBC. Occult blood positive. -Consulted gastroenterology, appreciate recommendations -Obtain CBC in a.m. #PNA Possible superimposed PNA seen on cxr with congestion. -Continue antibiotics #15mm spiculated pulmonary nodule in LLL #Troponinemia-resolved #Hyperglycemia, resolved #Elevated beta hydroxybutyrate-resolved #Hypoglycemia-resolved #Hyperkalemia, resolved #Altered mental status in setting of shock-resolved #Lactic acidosis-resolved Health maintenance: Dispo: final GI recs pending FEN: regular DVT prophylaxis: none CODE STATUS: Full code The patient's management plan was discussed with my attending physician Dr. Vyas. Lena Sawant, PGY-1 Attending Provider Attestation/Addendum I have discussed and was present for the essential components of the history, physical examination, diagnosis, and treatment plan with the resident. I agree with the patient's care as documented by the resident and amended herein by me. Kishore Vyas DO. Patient seen and evaluated this AM. No acute events overnight, vital signs stable, patient afebrile, as stated in yesterday's note, no intervention per vascular surgery, with the patient's right leg worsens, likely will need [id number] amputation. Rhabdomyolysis has improved, EMMY resolved, gastroenterology consult pending for possible GI bleed, if clear patient can likely be discharged to SNF. Although this document has been carefully reviewed, there may still be some phonetic and other typographical errors. These errors are purely grammatical due to imperfections in the software program and should not be construed in any way to compromise the substance of the patient's medical care during this visit.
--- NOTE | 2024-06-23 19:35 | PD.IMCONS ---
HPI Data of Consult Requesting Physician: Shaan Vyas DO Primary Care Provider: Physician No Primary/Family Consult Narrative Reason for consult: H/H 7.4/24.8 History of present illness: 82 years old male evaluated at the request of the internal medicine team for anemia presenting hemoglobin hematocrit 8.2 and 28.2 which is subsequently going down to 7.4 and 24.8 Back on 03/25/2022 Patient was evaluated by me her hemoglobin that was 6.3 at that time she was not thought to be a candidate for any invasive GI workup because of her pressing medical issues This time she presented to the hospital with altered mental status glucose of 20 requiring D50 ampule in the ambulance and was found on the floor at home Her initial CK was 16,963 which subsequently went up to 30,259 and it is coming down No signs of any hematemesis melena or bright red bleeding per rectum Patient does have a history of essential hypertension congestive heart failure COPD cc:: cc: Shaan Vyas DO Review of Systems Review of Systems ROS Unobtainable: unobtainable due to medical condition Past Medical History Surgical History OTHER SURGICAL HX: As in the history of present illness Meds Home Medications and Allergies Home Medications ?Medication ?Instructions ?Recorded ?Confirmed ?Type hydrocodone 10 mg-acetaminophen 1 tab PO BID #0 tabs 08/11/13 06/20/24 History 325 mg tablet amitriptyline 25 mg tablet 25 mg PO HS 04/22/21 06/20/24 History atorvastatin 10 mg tablet 10 mg PO QPM 04/22/21 06/20/24 History tizanidine 4 mg tablet 4 mg PO Q8HR PRN Dizziness 04/22/21 06/20/24 History clopidogrel 75 mg tablet (Plavix) 75 mg PO QDAY 12/25/22 06/20/24 History lansoprazole 30 mg capsule,delayed 30 mg PO QDAY 12/25/22 06/20/24 History release (Prevacid) montelukast 10 mg tablet 10 mg PO QDAY 12/25/22 06/20/24 History (Singulair) diclofenac sodium 75 mg 75 mg PO BID 01/08/23 06/20/24 History tablet,delayed release meclizine 12.5 mg tablet 12.5 mg PO TID PRN Dizziness 01/08/23 06/20/24 History metoprolol succinate 25 mg 25 mg PO QDAY 01/08/23 06/20/24 History tablet,extended release 24 hr misoprostol 200 mcg tablet 200 mcg PO BID 01/08/23 06/20/24 History pregabalin 100 mg capsule 100 mg PO BID 01/08/23 06/20/24 History sertraline 100 mg tablet 100 mg PO QDAY 01/08/23 06/20/24 History Allergies Allergy/AdvReac Type Severity Reaction Status Date / Time No Known Allergies Allergy Verified 03/09/24 14:01 Exam Vital Signs Temp Pulse Resp BP Pulse Ox O2 Del Method O2 Flow Rate 97.6 F 85 20 145/64 H 96 Nasal Cannula 1 06/23/24 16:00 06/23/24 16:00 06/23/24 16:00 06/23/24 16:00 06/23/24 16:00 06/23/24 16:00 06/23/24 16:00 Constitutional Comments: Chronically ill-appearing Routine Abdominal Exam Comments: Soft nontender Results Labs 06/23/24 08:05 06/23/24 08:05 Labs: Short CBC 06/23/24 Range/Units 08:05 WBC 18.5 H (3.6-11.0) Thou/mm3 Hgb 7.4 L (12.0-16.0) g/dL Hct 24.8 L (36.0-46.0) % Plt Count 352 D (140-440) Thou/mm3 [facility] 06/23/24 08:05 Sodium 137 Potassium 3.7 Chloride 108 H Carbon Dioxide 23.5 BUN 31 H Creatinine 1.2 Glucose 122 H Calcium 7.4 L Liver Function 06/23/24 Range/Units 08:05 Total Bilirubin 0.2 L (0.3-1.2) mg/dL AST 319 H (0-34) U/L ALT 292 H (10-49) U/L Alkaline Phosphatase 81 (46-116) U/L Albumin 2.8 L (3.4-4.8) gm/dL ABG Interpretation ABG results: 06/18/24 06/18/24 06/18/24 13:32 16:05 22:00 ABG pH 7.42 Cancelled ABG pCO2 31 L Cancelled ABG pO2 62 L Cancelled ABG HCO3 20 Cancelled ABG O2 Saturation 91 Cancelled ABG Base Excess -4 L Cancelled VBG pH 6.95 L VBG pCO2 59 H VBG pO2 44 VBG Base Excess -18 L 06/19/24 06/19/24 02:38 05:08 ABG pH 7.44 ABG pCO2 33 ABG pO2 105 D ABG HCO3 22 ABG O2 Saturation 99 H ABG Base Excess -2 VBG pH 7.18 L VBG pCO2 51 VBG pO2 35 VBG Base Excess -9 L Assessment and Plan Additional Assessment & Plan Additional Plan: # Anemia multifactorial Patient would benefit from getting upper endoscopy with possible biopsy possible therapeutic intervention However daughter Meghna I tried to call she was too tired to talk to me we will speak to her a morning for possible upper endoscopy For further evaluation of the low hemoglobin hematocrit Other medical problems include Improving rhabdomyolysis Improving lactic acidosis Improving gross electrolyte abnormalities Essential hypertension COPD Congestive heart failure Thank you very much for the opportunity to participate in the care of this patient
--- NOTE | 2024-06-23 21:00 | PC.NURSE ---
Informed pt's daughter at bedside, Sussy, that Dr Fisher was intending to perform an EGD in the morning d/t fluctuating H/H. Pt's daughter was hesitant to agree to the procedure. Informed pt's daughter that I would contact Dr Fisher by phone so that she may speak to him directly and so that he can discuss the risk and benefits along with purpose of the diagnostic study. Per Sussy, no not tonight, I am exhausted. I just want to go to the hotel to sleep and I will speak with him in the morning . Will attempt to relay message to Dr. Fisher.
--- NOTE | 2024-06-23 21:45 | PC.NURSE ---
Dr Fisher called back after leaving message on voicemail regarding pt and family concerns regarding EGD. MD wanted to speak with family but did inform MD that they preferred to speak to him tomorrow as they had left for the evening and did not want to discuss the matter tonight. MD noted he would reach out in the morning to speak with pt and family regarding EGD.
[2024-06-24] VITALS (9 sets, daily range): BP systolic 122–158; BP diastolic 52–81; PULSE 73–96; RESP 13–21; TEMP 36.1–36.8; O2SAT 8–100; BMI 23.4; BMI 12.0
[2024-06-24] MEDS: HYDROcodone/APAP 5/325 TABLET 1 TAB PO (00:18)
[2024-06-24] MEDS: LIDOCAINE 5% 1 PATCH TOP (00:22)
[2024-06-24] MEDS: metroNIDAZOLE/NS 500 MG IVPB 500 MG/100 ML BAG 200 MG IV ×3 (05:36→21:21)
[2024-06-24] MEDS: HYDROcodone/APAP 5/325 TABLET 2 TAB PO ×2 (05:36→14:58)
[2024-06-24] MEDS: PREGABALIN 50 MG CAPSULE 100 MG PO (08:33)
[2024-06-24] MEDS: METOPROLOL SUCCINATE XL 25 MG TABCR PO (08:33)
[2024-06-24] MEDS: NICOTINE PATCH 21 MG/24 HR PATCH.TD24 TOP (08:34)
[2024-06-24] MEDS: BALSAM PERU/CASTOR OIL (Venelex) 60 GM TUBE TOP ×2 (08:35→21:22)
--- NOTE | 2024-06-24 09:20 | ESPR_ITS ---
Documentation for date of: 06/24/24 Subjective Subjective Interval history: It has been a difficult rule this morning as a risk and insurance consultant for this patient I was told to talk to Meghna who did not want to talk to me last night because she was too tired Meghna gave me permission for the upper endoscopy When my nursing staff went to hand picker the patient there was a son in the room who said no That the doctor should not be talking to Meghna but talk to my other sister Sussy I went to the room and called Sussy on the line and the brother walked out Sussy gave me the permission and that she said my mother is coherent but she is not And she refused the procedure I came outside the room approached the son Who said why Sussy gave you permission At this point I had it I told the gentleman to get ACT together once the confusion in the family gets better tell the internal medicine team I will call me when you are ready to do anything for this patient In the meantime I canceled the procedure Exam Vital Signs Temp Pulse Resp BP Pulse Ox O2 Del Method O2 Flow Rate 98.2 F 87 14 128/59 L 95 Nasal Cannula 2 06/24/24 08:00 06/24/24 08:33 06/24/24 08:00 06/24/24 08:33 06/24/24 08:00 06/24/24 08:00 06/24/24 08:00 Objective Labs 06/23/24 08:05 06/23/24 08:05 Impressions Impression: Anemia multifactorial Plan Once the family get the rectal catheter they can approach me or my internal medicine team to see if they want the procedure or not See the patient today ABG Interpretation ABG results: 06/18/24 06/18/24 06/18/24 13:32 16:05 22:00 ABG pH 7.42 Cancelled ABG pCO2 31 L Cancelled ABG pO2 62 L Cancelled ABG HCO3 20 Cancelled ABG O2 Saturation 91 Cancelled ABG Base Excess -4 L Cancelled VBG pH 6.95 L VBG pCO2 59 H VBG pO2 44 VBG Base Excess -18 L 06/19/24 06/19/24 02:38 05:08 ABG pH 7.44 ABG pCO2 33 ABG pO2 105 D ABG HCO3 22 ABG O2 Saturation 99 H ABG Base Excess -2 VBG pH 7.18 L VBG pCO2 51 VBG pO2 35 VBG Base Excess -9 L Assessment & Plan A&P Narrative # Anemia multifactorial Patient would benefit from getting upper endoscopy with possible biopsy possible therapeutic intervention However daughter Meghna I tried to call she was too tired to talk to me we will speak to her a morning for possible upper endoscopy For further evaluation of the low hemoglobin hematocrit Other medical problems include Improving rhabdomyolysis Improving lactic acidosis Improving gross electrolyte abnormalities Essential hypertension COPD Congestive heart failure Thank you very much for the opportunity to participate in the care of this patient Time Spent With Patient Time: Total time spent is greater than 50% in coordination of care (as documented) at patient's floor/unit and/or counseling patient:
--- NOTE | 2024-06-24 12:28 | PD.RESDS ---
Planned Discharge Date 06/24/24 DS: Providers Provider Date of admission: 06/18/24 16:16 Primary care physician: Physician No Primary/Family Admitting Provider: Ann Huddleston MD Attending Provider on Admission: Jovon Matamoros MD Consults: 06/18/24 13:58 Consult to General Surgery Stat Comment: Consulting Provider: Liam Monae 06/18/24 14:54 Consult to Nephrology Stat Comment: Consulting Provider: Lana Pa 06/19/24 01:42 Referral Wound Care Urgent Comment: NEW ADMIT. RED AREAS TO R. HIP AND R. LOWER BACK 06/19/24 15:01 Referral Nutritional Services Routine Comment: Wounds 06/20/24 10:31 Referral Physical Therapy Routine Comment: Physician Instructions: 06/21/24 14:36 Referral Hospice Stat Comment: 06/22/24 12:52 Consult to Gastroenterology Urgent Comment: GI Bleed Consulting Provider: Vishnu Workman 06/22/24 12:55 Referral - Race Engine Builder Stat Service Needed for Transfer: Vascular Surgery Addl Comments:: PAD Acute Limb Ischemia 06/23/24 07:58 Consult to Gastroenterology Routine Comment: r/o GI bleed Consulting Provider: Favian Fisher Instructions: r/o GI bleed. +Fobt, Hb downtrending. Patient has severe PAD with acute limb ischemia. 06/23/24 10:34 Referral Physical Therapy Routine Comment: Physician Instructions: Attending Provider on DC: Lena Sawant MD Discharging Provider: Lena Sawant MD Hospital Course Hospital Course Hospital course: Reason for hospitalization: Acute on chronic hypoxic respiratory failure Isadora De Souza is a 83-year-old female with past medical history of hypertension, COPD, and CHF ejection fraction of 40-45%, COPD, depression presented to [facility] on 06/18 after found by EMS for altered mental status after she was found down at home by her daughter. Patient lives at home with daughter. Unknown for how long patient was down. She was admitted to the intensive care unit for treatment of rhabdomyolysis and hyperkalemia. Patient was started on aggressive IV fluid resuscitation and Lasix, urine output was maintained at significant goal, nephrology was consulted for recommendations. Patient's renal function improved, there was underlying suspicion of bowel ischemia in setting of severe PAD which patient has due to extensive history of significant smoking in the past, vascular surgeon was consulted in ICU for diminished/absent pedal pulses and duplex scan did show severe PAD, considering patient was significantly ill with rhabdo and hyperkalemia, outpatient workup was recommended. With the progression of hospital course patient had worsening of pedal pulses, diminished pulses noted on right foot, CTA abdomen showed multiple 50% areas of stenosis, significant occlusions of proximal right posterior tubular, right main continuation trunk severe occlusive disease 50% stenosis distal left superficial femoral artery. On physical exam absent bilateral pedal pulses noted, black-blue discoloration of right foot and toes noted significant concern of acute limb ischemia, patient was not started on anticoagulation due to underlying possible GI bleed. Initially the case was discussed with patient and patient's daughter. They had decided to pursue hospice care and treatment was discontinued. However, patient's remaining daughters flew in from out of state and goals of care discussion was held with family. Family and patient decided to pursue full treatment. Considering she has high suspicion of acute limb ischemia as evidenced on CTA, patient would significantly benefit from vascular surgery evaluation and consultation. Unfortunately the facilities are not available at this hospital. Tertiary care centers with vascular surgery were not willing to accept patient due to age and comorbidities. She is currently on IV antibiotics for management of pneumonia, abdominal infection (low suspicion). a, no anticoagulation started considering high suspicion of GI bleed and is pending GI evaluation. Patient is requiring higher level of care and is stable for transfer. Discharge diagnosis: #Acute limb ischemia # Severe peripheral arterial disease #Hx of carotid endarterectomy #Leukocytosis #HFpEF 55-60%, Diastolic Heart Failure. #Acute kidney injury, resolving #Rhabdomyolysis-improving #Abdominal pain, suspicion of chronic mesenteric ischemia #Transaminitis, improving #Normocytic anemia #PNA #Hypertension #Chronic smoker, greater than 60 pack years #Troponinemia #COPD #Lactic acidosis #Hypoglycemia Time Spent with Patient Time attestation: Total time spent providing and/or coordinating discharge services: Exam Vital Signs Temp Pulse Resp BP Pulse Ox O2 Del Method O2 Flow Rate 98.2 F 87 14 128/59 L 95 Nasal Cannula 2 06/24/24 08:00 06/24/24 08:33 06/24/24 08:00 06/24/24 08:33 06/24/24 08:00 06/24/24 08:00 06/24/24 08:00 Discharge Plan Plan Patient Disposition: Xfer Skilled Nsg Fac (SNF) Disposition Comment: ICU Patient condition on transfer: Stable Prescriptions/Referrals Prescriptions/Med Rec: New doxycycline hyclate 100 mg capsule 100 mg PO BID 5 Days Qty: 10 0RF metronidazole 500 mg tablet 500 mg PO TID 5 Days Qty: 15 0RF Continued hydrocodone-acetaminophen 10-325 mg Tablet 1 tab PO BID Qty: 0 tizanidine 4 mg Tablet 4 mg PO Q8HR PRN (Reason: Dizziness) amitriptyline 25 mg tablet 25 mg PO HS Patient Comments: TAKE ONE TABLET BY MOUTH EVERY EVENING clopidogrel [Plavix] 75 mg Tablet 75 mg PO QDAY lansoprazole [Prevacid] 30 mg Capsule,Delayed Release(Dr/Ec) 30 mg PO QDAY montelukast [Singulair] 10 mg Tablet 10 mg PO QDAY meclizine 12.5 mg Tablet 12.5 mg PO TID PRN (Reason: Dizziness) sertraline 100 mg Tablet 100 mg PO QDAY misoprostol 200 mcg Tablet 200 mcg PO BID pregabalin 100 mg Capsule 100 mg PO BID metoprolol succinate 25 mg tablet extended release 24 hr 25 mg PO QDAY Patient Comments: TAKE 1 TABLET BY MOUTH EVERY DAY Spiriva Respimat 2.5 mcg/actuation mist 2 inh inhalation QAM Qty: 4 1RF albuterol sulfate 90 mcg/actuation HFA aerosol inhaler 1 inh inhalation QID PRN (Reason: shortness of breath or wheezing) Qty: 6.7 2RF furosemide 40 mg tablet 40 mg PO QDAY Qty: 30 1RF lisinopril 40 mg tablet 40 mg PO QDAY Qty: 30 1RF Held atorvastatin 10 mg Tablet 10 mg PO QPM Hold Instructions: Resume on 07/08/24. Hold until you see your PCP and repeat labs. diclofenac sodium 75 mg Tablet,Delayed Release (Dr/Ec) 75 mg PO BID Hold Instructions: Resume on 07/08/24. Hold until you see PCP. Referrals: No Primary/Family,Physician [Primary Care Provider] - Patient/Caregiver Discharge Instructions Education Materials: Rhabdomyolysis, Critical Limb Ischemia Print Language: Uruguayan Stand Alone Forms: Dianne Award Info., Patient Portal Info Letter Discharge Order Discharge Orders: Discharge (Routine); Ordered 06/24/24 Ordered By: Lena Sawant
--- NOTE | 2024-06-24 12:38 | PC.NURSE ---
Notified daughter Sussy that discharge orders were placed. Sussy states she will call [employer] and file an appeal, Renae social media strategist was notified. Informed Sussy to notify us once she calls and receives the case number.
--- NOTE | 2024-06-24 13:50 | PC.SS ---
WheelChairs Patients diagnosis creates mobility limitations that significantly impairs ability to participate in the patient?s activities of daily living either in their entirety, or in a reasonable time frame in the home and the patient?s mobility limitations can not be sufficiently resolved with an appropriately fitted cane or walker. Also the use of a manual wheelchair will sufficiently improve patient?s ability to participate in the activities of daily living in the home and the patient is willing to use the wheelchair that is provided in the home. The patient has some one in the home that is available, willing and able to provide assistance with the wheelchair.
--- NOTE | 2024-06-24 13:54 | PC.SS ---
SS has sent DME order for wheelchair to [facility]. SS met with pt and dtrSussy who states pt does not have a wheelchair at home.
--- NOTE | 2024-06-24 16:00 | PC.CC ---
Addendum entered and electronically signed by Emma Briggs RPh 06/25/24 08:34: [facility] case status physician review completed per provider portal. Original Note: [facility] [id number] initiated and clinical documentation uploaded via provider portal.
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
--- NOTE | 2024-06-24 16:34 | ESPR_ITS ---
<Statement entered by Khanh Portre MD - 06/25/24 08:56> I discussed with and supervised the sports internship physician involved in the care of this patient. Patient assessment and plan was discussed with entire medicine team, including my attending. I agree with the assessment and plan as documented by sports internship doctor. Patient care was discussed with my attending physician Dr. Saturnino Porter, PGY-2 Documentation for date of: 06/24/24 Subjective Subjective Interval history: Patient seen and examined at bedside. No overnight events. Complains of LE pain. GI was consulted--will not be doing EGD due to poor family communication. Patient to continue on antibiotic therapy in setting of PNA and possible GI infection but there is difficulty in obtaining IV access and blood draws due to patient's poor circulation in setting of arterial disease. CK is downtrending Tele reviewed-in NSR rate 80-90. Patient is cleared from medical standpoint to be discharged to SNF however family wants to appeal discharge. At this time there is no further workup to be done for inpatient care. Exam Vital Signs Temp Pulse Resp BP Pulse Ox O2 Del Method O2 Flow Rate 97.0 F 78 21 H 150/58 H 99 Nasal Cannula 2 06/24/24 12:00 06/24/24 12:00 06/24/24 12:00 06/24/24 12:00 06/24/24 12:00 06/24/24 12:00 06/24/24 12:00 Narrative Exam General: Elderly female, No acute distress, cooperative HEENT: NCAT, No JVD noted. Mucosa dry. Pupils are equal and reactive to light bilaterally Cardiovascular: Normal S1 and S2. Regular rate and rhythm. Respiratory: Lungs are clear to auscultation bilaterally. No wheezing or crackles heard. Abdomen: Soft, nontender, not distended, normal bowel sounds. Skin: Warm to touch, dry, no rashes noted Musculoskeletal: No gross injuries. Able to move all 4 extremities. Right foot is dusky, absent bilateral pedal pulses, grayish discoloration noted on all toes. Multiple varicose veins Neuro: Alert and oriented x3. No focal neuro deficits. Psych: Normal affect and mood Objective Labs 06/23/24 08:05 06/23/24 08:05 ABG Interpretation ABG results: 06/18/24 06/18/24 06/18/24 13:32 16:05 22:00 ABG pH 7.42 Cancelled ABG pCO2 31 L Cancelled ABG pO2 62 L Cancelled ABG HCO3 20 Cancelled ABG O2 Saturation 91 Cancelled ABG Base Excess -4 L Cancelled VBG pH 6.95 L VBG pCO2 59 H VBG pO2 44 VBG Base Excess -18 L 06/19/24 06/19/24 02:38 05:08 ABG pH 7.44 ABG pCO2 33 ABG pO2 105 D ABG HCO3 22 ABG O2 Saturation 99 H ABG Base Excess -2 VBG pH 7.18 L VBG pCO2 51 VBG pO2 35 VBG Base Excess -9 L Quality Measures Quality Measures none Advance care planning discussed with:: child and other Assessment & Plan Assessment Current Active Medications: Generic Name Dose Route Start Last Admin Trade Name Freq PRN Reason Stop Dose Admin Hydrocodone Bitart/Acetaminophen 2 tab 06/23/24 23:18 06/24/24 14:58 Hydrocodone/Apap 5/325 Tablet PO 06/26/24 23:31 2 tab Q4HR PRN Administration Pain 4-10 Albuterol 1 puff 06/22/24 12:43 06/23/24 00:53 Albuterol Inh 8 Gm INH 07/22/24 12:42 1 puff QID PRN Administration shortness of breath or wheezing Balsam [place]/Ragland Oil 0 gm 06/19/24 21:00 06/24/24 08:35 Balsam [place]/Ragland Oil (Venelex) 60 Gm Tube TOP 07/19/24 20:59 1 applicatio BID TAWNY Administration Dextrose 25 ml 06/18/24 12:51 06/19/24 16:02 Dextrose 50%-Water Inj 50 Ml Syringe IV 07/18/24 12:50 25 ml Q15MIN PRN Administration BG 50-70 responsive npo pt Dextrose 50 ml 06/18/24 12:51 Dextrose 50%-Water Inj 50 Ml Syringe IV 07/18/24 12:50 Q15MIN PRN BG <50 OR BG <70 & pt unresponsive Glucagon 1 mg 06/18/24 16:07 Glucagon Inj 1 Mg Vial IM Q15MIN PRN BG <70, and no IV access Metronidazole 500 mg in 100 mls @ 200 mls/hr 06/22/24 12:49 06/24/24 13:47 Flagyl 500 Mg Iv IV 06/29/24 12:48 200 mls/hr Q8HR TAWNY Administration Ceftriaxone Sodium/Dextrose 2 gm in 50 mls @ 100 mls/hr 06/23/24 09:00 06/23/24 09:27 Rocephin/D5w 2gm IV 06/30/24 08:59 100 mls/hr QDAY TAWNY Administration Metoprolol Succinate 25 mg 06/22/24 10:30 06/24/24 08:33 Metoprolol Succinate Xl 25 Mg Tabcr PO 07/22/24 10:29 25 mg QDAY TAWNY Administration Nicotine 21 mg 06/22/24 12:30 06/24/24 08:34 Nicotine Patch 21 Mg/24 Hr Patch.Td24 TOP 07/22/24 12:29 21 mg QDAY TAWNY Administration Pregabalin 100 mg 06/22/24 13:00 06/24/24 08:33 Pregabalin 50 Mg Capsule PO 07/22/24 12:59 100 mg BID TAWNY Administration Plan Assessment and plan: Summary: Isadora De Souza is 83 yr F with PMH of hypertension, COPD, and CHF ejection fraction of 40-45%, COPD, depression presented to [facility] on 06/18 after found by EMS for altered mental status after she was found down at home by her daughter. Patient lives at home with daughter. Unknown for how long patient was down. She was admitted for treatment of hyperkalemia, rhabdomyolysis. # Acute limb ischemia # Peripheral arterial disease # Hx of carotid endarterectomy #Leukocytosis Patient has elevated WBC count, physical exam shows right foot is dusky, absent bilateral pedal pulses, grayish discoloration noted on all toes. 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 60-80% stenosis right common iliac artery 80% plus stenosis right common femoral artery Significantly attenuated right superficial femoral artery with multiple 50% areas of stenosismiscellaneous You can occlusions of the proximal right posterior tibial and right main continuation trunk, severe occlusive disease 50% stenosis distal left superficial femoral artery Lower extremity duplex: Severe bilateral peripheral obstructive arterial disease Plan - Started on ceftriaxone and Flagyl (06/22- - No anticoagulation considering patient does have possible GI bleed - Consulted GI--no EGD at this time to due poor communication amongst family members. - monitor closely - Transfer to higher level of care for vascular surgery evaluation #HFpEF 55-60%, Diastolic Heart Failure. Echocardiogram: Normal LV size and function. Estimated EF 55-60%. Mild LVH. Diastolic dysfunction present but cannot be graded because of the atrial fibrillation Normal RV size and systolic function. Estimated RVSP 65-70 mmHg - moderate to severely dilated. Mild MR and mildly thickened mitral leaflets. Mild AI. Moderate to severe TR. Dilated IVC. Mildly dilated LA and RA. Plan: - Strict I&O - Fluid restriction ~ 2L - Daily weight #Acute kidney injury, resolving #Rhabdomyolysis-improving Recent ankle sprain, patient likely fell again and was left on ground for prolonged period. Patient was directly admitted to ICU from the ED for closer monitoring of urine output and fluid resuscitation. Continue monitoring urine output hourly with goal 100 cc/h 06/22 - Renal function today shows BUN 30, creatinine 1.4, GFR 37, CK 3867 ?Continue D5W 60cc/h due to low blood glucose (holding for now as patient does not have IV access) - Will no longer trend CK, less than 5000 #Abdominal pain #Transaminitis, improving Initial exam in ED positive for tender to palpation. Reexamination abdominal physical exam is benign. Transaminitis most likely due to rhabdomyolysis. However general surgery GI was consulted concern for mesenteric ischemia Per surgery evaluation, less likely that patient is currently having ischemia. They will continue to monitor. CT abd/pelvis without contrast significant for increased density suggesting inflammatory/infectious etiology CT Abd/Pelvis with contrast ordered by ED to rule out mesenteric ischemia, may shed light on above hyperdensity noted by radiologist Patient received IV Zosyn 3.375mg q8 (06/18-06/21 ) - High suspicion of mesenteric ischemia, possibly chronic, patient does have extensive peripheral arterial disease, due to significant history of smoking of more than 60 pack years - Continue to monitor for abdominal pain, continue IV antibiotics - Avoid hepatotoxic agents, trend CMP every day #Normocytic anemia Hb 8.3 on admission. Dropped to 6.0 while in ICU and received 1 unit PRBC. Occult blood positive. -Consulted gastroenterology, appreciate recommendations -Obtain CBC in a.m. #PNA Possible superimposed PNA seen on cxr with congestion. -Continue antibiotics #15mm spiculated pulmonary nodule in LLL #Troponinemia-resolved #Hyperglycemia, resolved #Elevated beta hydroxybutyrate-resolved #Hypoglycemia-resolved #Hyperkalemia, resolved #Altered mental status in setting of shock-resolved #Lactic acidosis-resolved Health maintenance: Dispo: okay to DC to SNF from hospitalist team, family is appealing FEN: regular DVT prophylaxis: none CODE STATUS: Full code The patient's management plan was discussed with my attending physician Dr. Matamoros. Lena Sawant, PGY-1 Attending Provider Attestation/Addendum 83-year-old female with peripheral artery disease, limb ischemia, foot gangrene admitted with rhabdomyolysis. She has pneumonia. She was hyperkalemic and hyperglycemic. She has elevated transaminases. Patient was found to have left lower lobe spiculated pulmonary nodule measuring 15 mm. She has lactic acidosis and high troponin levels secondary to demand ischemia. Patient's family wanted to take her back to [place]. GI workup will not proceed. Discussed with son-in-law at bedside.
[2024-06-25] VITALS (13 sets, daily range): BP systolic 96–156; BP diastolic 46–81; PULSE 74–130; RESP 14–44; TEMP 36.1–36.7; O2SAT 98–100; BMI 28.0
[2024-06-25] MEDS: metroNIDAZOLE/NS 500 MG IVPB 500 MG/100 ML BAG 200 MG IV ×3 (05:20→21:02)
[2024-06-25] MEDS: HYDROcodone/APAP 5/325 TABLET 2 TAB PO ×3 (06:57→22:02)
[2024-06-25 07:34] LABS: Alanine Aminotransferase 217 U/L (10-49); Albumin, Serum 2.8 gm/dL (3.4-4.8); Albumin/Globulin Ratio 1.3 (1.2-2.2); Alkaline Phosphatase 78 U/L (46-116); Anion Gap 9 (7-16); Aspartate Amino Transferase 179 U/L (0-34); BUN/Creatinine Ratio 26 Ratio (12-20); Bilirubin,Total 0.2 mg/dL (0.3-1.2); Blood Urea Nitrogen 29 mg/dL (9-23); Calcium 7.6 mg/dL (8.3-10.6); Calcium (Corrected) 8.6 mg/dL (8.5-10.1); Carbon Dioxide 21.8 mMol/L (20.0-31.0); Chloride 108 mMol/L (98-107); Creatinine (Component) 1.1 mg/dL (0.6-1.3); Globulin 2.1 gm/dL (2.3-3.5); Glucose 128 mg/dL (74-106); Osmolality,Calculated 285 (275-295); Potassium 4.4 mMol/L (3.4-5.1); Sodium 139 mMol/L (136-145); Total Protein 4.9 gm/dL (5.7-8.2); eGFR 50 See Note
[2024-06-25] MEDS: METOPROLOL SUCCINATE XL 25 MG TABCR PO (09:02)
[2024-06-25] MEDS: PREGABALIN 50 MG CAPSULE 100 MG PO ×2 (09:02→20:54)
[2024-06-25] MEDS: NICOTINE PATCH 21 MG/24 HR PATCH.TD24 TOP (09:02)
[2024-06-25] MEDS: BALSAM PERU/CASTOR OIL (Venelex) 60 GM TUBE TOP ×2 (09:03→20:57)
[2024-06-25 09:18] LABS: Basophils % (Auto) 0 % (0-2.5); Eosinophils # (Auto) 0.1 Thou/mm3 (0.0-0.5); Eosinophils % (Auto) 1 % (0-10); Hematocrit 22.7 % (36.0-46.0); Immature Granulocytes % (Auto) 1 % (0-0); Immature Granulocytes Auto 0.17 Thou/mm3 (0.00-0.00); Lymphocytes # (Auto) 0.7 Thou/mm3 (1.0-4.8); Lymphocytes % (Auto) 5 % (10-50); Mean Corpuscular HGB Conc 30.4 g/dl (31.0-37.0); Mean Corpuscular Volume 86 fL (80-100); Monocytes # (Auto) 0.9 Thou/mm3 (0.0-0.8); Monocytes % (Auto) 7 % (0-12); Neutrophils # (Auto) 12.1 Thou/mm3 (1.8-7.7); Neutrophils % (Auto) 87 % (37-80); Nucleated Red Blood Cell % 0 /100 WBC (0); Platelet Count 550 Thou/mm3 (140-440); Red Blood Count 2.65 Miln/mm3 (4.00-5.20)
[2024-06-25 09:21] LABS: Hemoglobin 6.9 g/dL (12.0-16.0)
--- NOTE | 2024-06-25 09:27 | PC.SS ---
SS contacted and submitted verbal report to Liana Walker from [facility]. Written report to be faxed to [phone]. Copy of SOC 341 placed in patient's chart.
--- NOTE | 2024-06-25 10:19 | PC.SS ---
SS has faxed SOC 341 to 6 times but was unsuccessful. SS has informed Liana from [facility]. SS has re faxed report using [employer] fax.
--- NOTE | 2024-06-25 12:59 | ESPR_ITS ---
Documentation for date of: 06/25/24 Subjective Subjective Interval history: Downward trending hemoglobin at 6.9 and 22.7 Exam Vital Signs Temp Pulse Resp BP Pulse Ox O2 Del Method O2 Flow Rate 97.5 F 84 24 H 142/65 H 100 Nasal Cannula 3 06/25/24 08:00 06/25/24 09:02 06/25/24 08:00 06/25/24 09:02 06/25/24 08:00 06/25/24 08:00 06/25/24 07:00 Objective Labs 06/25/24 08:40 06/25/24 06:12 Labs: Laboratory Results - last 24 hr 06/25/24 06/25/24 06:12 08:40 WBC 14.0 H RBC 2.65 L Hgb 6.9 L* Hct 22.7 L MCV 86 MCH 26.0 MCHC 30.4 L RDW Std Deviation 58.0 H Plt Count 550 H D Neut % (Auto) 87 H Lymph % (Auto) 5 L [place] % (Auto) 7 Eos % (Auto) 1 Baso % (Auto) 0 Neut # (Auto) 12.1 H Lymph # (Auto) 0.7 L [place] # (Auto) 0.9 H Eos # (Auto) 0.1 Baso # (Auto) 0.0 Immature Gran # (Auto) 0.17 H Absolute Nucleated RBC 0.00 Immature Gran % 1 H Nucleated RBC % 0 Sodium 139 Potassium 4.4 D Chloride 108 H Carbon Dioxide 21.8 Anion Gap 9 BUN 29 H Creatinine 1.1 Estim Creat Clear Calc 34.0 L eGFR 50 L BUN/Creatinine Ratio 26 H Glucose 128 H Calculated Osmolality 285 Calcium 7.6 L Corrected Calcium 8.6 Magnesium 2.0 Total Bilirubin 0.2 L AST 179 H ALT 217 H Alkaline Phosphatase 78 Total Protein 4.9 L Albumin 2.8 L Globulin 2.1 L Albumin/Globulin Ratio 1.3 Impressions Impression: Occult GI bleeding Family does not want any invasive GI workup Transfuse as needed ABG Interpretation ABG results: 06/18/24 06/18/24 06/18/24 13:32 16:05 22:00 ABG pH 7.42 Cancelled ABG pCO2 31 L Cancelled ABG pO2 62 L Cancelled ABG HCO3 20 Cancelled ABG O2 Saturation 91 Cancelled ABG Base Excess -4 L Cancelled VBG pH 6.95 L VBG pCO2 59 H VBG pO2 44 VBG Base Excess -18 L 06/19/24 06/19/24 02:38 05:08 ABG pH 7.44 ABG pCO2 33 ABG pO2 105 D ABG HCO3 22 ABG O2 Saturation 99 H ABG Base Excess -2 VBG pH 7.18 L VBG pCO2 51 VBG pO2 35 VBG Base Excess -9 L Assessment & Plan A&P Narrative # Anemia multifactorial Patient would benefit from getting upper endoscopy with possible biopsy possible therapeutic intervention However daughter Meghna I tried to call she was too tired to talk to me we will speak to her a morning for possible upper endoscopy For further evaluation of the low hemoglobin hematocrit Other medical problems include Improving rhabdomyolysis Improving lactic acidosis Improving gross electrolyte abnormalities Essential hypertension COPD Congestive heart failure Thank you very much for the opportunity to participate in the care of this patient Time Spent With Patient Time: Total time spent is greater than 50% in coordination of care (as documented) at patient's floor/unit and/or counseling patient:
--- NOTE | 2024-06-25 15:50 | PC.SS ---
SS met with dtr and pt who aware [employer] appeal outcome and have agreed with hospital pt is ready for dc. Dtr has appealed 2nd time. Dtr is aware pt possibly can be financial responsible for hospital payment after 12pm tomorrow.
--- NOTE | 2024-06-25 16:43 | ESPR_ITS ---
Documentation for date of: 06/25/24 Subjective Subjective Interval history: Patient examined at bedside. No events overnight. Patient complains of lower extremity pain. Daughter was at bedside and expressed understanding of patient's condition of acute limb ischemia. Understands that patient may need to undergo right lower extremity amputation. Patient and daughter both denied any further GI workup to rule out bleed. No plan for EGD or colonoscopy. Hemoglobin this morning 6.9. Will transfuse 1 unit PRBC. Continue ceftriaxone and Flagyl while in hospital. Will transition to p.o. agents metronidazole and doxycycline once discharged. Okay for discharge to SNF from medical standpoint. However family is appealing the discharge. Exam Vital Signs Temp Pulse Resp BP Pulse Ox O2 Del Method O2 Flow Rate 97.9 F 81 17 139/51 H 98 Nasal Cannula 4 06/25/24 12:00 06/25/24 12:00 06/25/24 12:00 06/25/24 12:00 06/25/24 12:00 06/25/24 12:00 06/25/24 12:00 Narrative Exam General: Elderly female, No acute distress, cooperative HEENT: NCAT, No JVD noted. Mucosa dry. Pupils are equal and reactive to light bilaterally Cardiovascular: Normal S1 and S2. Regular rate and rhythm. Respiratory: Lungs are clear to auscultation bilaterally. No wheezing or crackles heard. Abdomen: Soft, nontender, not distended, normal bowel sounds. Skin: Warm to touch, dry, no rashes noted Musculoskeletal: No gross injuries. Able to move all 4 extremities. Right foot is dusky, absent bilateral pedal pulses, grayish discoloration noted on all toes. Multiple varicose veins Neuro: Alert and oriented x3. No focal neuro deficits. Psych: Normal affect and mood Objective Labs 06/25/24 08:40 06/25/24 06:12 Labs: Laboratory Results - last 24 hr 06/25/24 06/25/24 06:12 08:40 WBC 14.0 H RBC 2.65 L Hgb 6.9 L* Hct 22.7 L MCV 86 MCH 26.0 MCHC 30.4 L RDW Std Deviation 58.0 H Plt Count 550 H D Neut % (Auto) 87 H Lymph % (Auto) 5 L [place] % (Auto) 7 Eos % (Auto) 1 Baso % (Auto) 0 Neut # (Auto) 12.1 H Lymph # (Auto) 0.7 L [place] # (Auto) 0.9 H Eos # (Auto) 0.1 Baso # (Auto) 0.0 Immature Gran # (Auto) 0.17 H Absolute Nucleated RBC 0.00 Immature Gran % 1 H Nucleated RBC % 0 Sodium 139 Potassium 4.4 D Chloride 108 H Carbon Dioxide 21.8 Anion Gap 9 BUN 29 H Creatinine 1.1 Estim Creat Clear Calc 34.0 L eGFR 50 L BUN/Creatinine Ratio 26 H Glucose 128 H Calculated Osmolality 285 Calcium 7.6 L Corrected Calcium 8.6 Magnesium 2.0 Total Bilirubin 0.2 L AST 179 H ALT 217 H Alkaline Phosphatase 78 Total Protein 4.9 L Albumin 2.8 L Globulin 2.1 L Albumin/Globulin Ratio 1.3 ABG Interpretation ABG results: 06/18/24 06/18/24 06/18/24 13:32 16:05 22:00 ABG pH 7.42 Cancelled ABG pCO2 31 L Cancelled ABG pO2 62 L Cancelled ABG HCO3 20 Cancelled ABG O2 Saturation 91 Cancelled ABG Base Excess -4 L Cancelled VBG pH 6.95 L VBG pCO2 59 H VBG pO2 44 VBG Base Excess -18 L 06/19/24 06/19/24 02:38 05:08 ABG pH 7.44 ABG pCO2 33 ABG pO2 105 D ABG HCO3 22 ABG O2 Saturation 99 H ABG Base Excess -2 VBG pH 7.18 L VBG pCO2 51 VBG pO2 35 VBG Base Excess -9 L Quality Measures Quality Measures none Advance care planning discussed with:: patient and child Assessment & Plan Assessment Current Active Medications: Generic Name Dose Route Start Last Admin Trade Name Freq PRN Reason Stop Dose Admin Hydrocodone Bitart/Acetaminophen 2 tab 06/23/24 23:18 06/25/24 15:39 Hydrocodone/Apap 5/325 Tablet PO 06/26/24 23:31 2 tab Q4HR PRN Administration Pain 4-10 Albuterol 1 puff 06/22/24 12:43 06/23/24 00:53 Albuterol Inh 8 Gm INH 07/22/24 12:42 1 puff QID PRN Administration shortness of breath or wheezing Balsam [place] Oil 0 gm 06/19/24 21:00 06/25/24 09:03 Balsam [place] Oil (Venelex) 60 Gm Tube TOP 07/19/24 20:59 1 applicatio BID TAWNY Administration Dextrose 25 ml 06/18/24 12:51 06/19/24 16:02 Dextrose 50%-Water Inj 50 Ml Syringe IV 07/18/24 12:50 25 ml Q15MIN PRN Administration BG 50-70 responsive npo pt Dextrose 50 ml 06/18/24 12:51 Dextrose 50%-Water Inj 50 Ml Syringe IV 07/18/24 12:50 Q15MIN PRN BG <50 OR BG <70 & pt unresponsive Glucagon 1 mg 06/18/24 16:07 Glucagon Inj 1 Mg Vial IM Q15MIN PRN BG <70, and no IV access Metronidazole 500 mg in 100 mls @ 200 mls/hr 06/22/24 12:49 06/25/24 15:17 Flagyl 500 Mg Iv IV 06/29/24 12:48 200 mls/hr Q8HR TAWNY Administration Ceftriaxone Sodium/Dextrose 2 gm in 50 mls @ 100 mls/hr 06/23/24 09:00 06/23/24 09:27 Rocephin/D5w 2gm IV 06/30/24 08:59 100 mls/hr QDAY TAWNY Administration Metoprolol Succinate 25 mg 06/22/24 10:30 06/25/24 09:02 Metoprolol Succinate Xl 25 Mg Tabcr PO 07/22/24 10:29 25 mg QDAY TAWNY Administration Nicotine 21 mg 06/22/24 12:30 06/25/24 09:02 Nicotine Patch 21 Mg/24 Hr Patch.Td24 TOP 07/22/24 12:29 21 mg QDAY TAWNY Administration Pregabalin 100 mg 06/22/24 13:00 06/25/24 09:02 Pregabalin 50 Mg Capsule PO 07/22/24 12:59 100 mg BID TAWNY Administration Plan Assessment and plan: Summary: Isadora De Souza is 83 yr F with PMH of hypertension, COPD, and CHF ejection fraction of 40-45%, COPD, depression presented to [facility] on 06/18 after found by EMS for altered mental status after she was found down at home by her daughter. Patient lives at home with daughter. Unknown for how long patient was down. She was admitted for treatment of hyperkalemia, rhabdomyolysis. # Acute limb ischemia # Peripheral arterial disease # Hx of carotid endarterectomy #Leukocytosis Patient has elevated WBC count, physical exam shows right foot is dusky, absent bilateral pedal pulses, grayish discoloration noted on all toes. 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 agents metronidazole and doxycycline once discharged. - Will resume plavix per GI recs - Consulted GI--no EGD - monitor closely - Transfer to higher level of care for vascular surgery evaluation was denied. #HFpEF 55-60%, Diastolic Heart Failure. Echocardiogram: Normal LV size and function. Estimated EF 55-60%. Mild LVH. Diastolic dysfunction present but cannot be graded because of the atrial fibrillation Normal RV size and systolic function. Estimated RVSP 65-70 mmHg - moderate to severely dilated. Mild MR and mildly thickened mitral leaflets. Mild AI. Moderate to severe TR. Dilated IVC. Mildly dilated LA and RA. Plan: - Strict I&O - Fluid restriction ~ 2L - Daily weight #Acute kidney injury, resolving #Rhabdomyolysis-improving Recent ankle sprain, patient likely fell again and was left on ground for prolonged period. Patient was directly admitted to ICU from the ED for closer monitoring of urine output and fluid resuscitation. Continue monitoring urine output hourly with goal 100 cc/h 06/22 - Renal function today shows BUN 30, creatinine 1.4, GFR 37, CK 3867 ?Continue D5W 60cc/h due to low blood glucose (holding for now as patient does not have IV access) - Will no longer trend CK, less than 5000 #Abdominal pain #Transaminitis, improving Initial exam in ED positive for tender to palpation. Reexamination abdominal physical exam is benign. Transaminitis most likely due to rhabdomyolysis. However general surgery GI was consulted concern for mesenteric ischemia Per surgery evaluation, less likely that patient is currently having ischemia. They will continue to monitor. CT abd/pelvis without contrast significant for increased density suggesting inflammatory/infectious etiology CT Abd/Pelvis with contrast ordered by ED to rule out mesenteric ischemia, may shed light on above hyperdensity noted by radiologist Patient received IV Zosyn 3.375mg q8 (06/18-06/21 ) - High suspicion of mesenteric ischemia, possibly chronic, patient does have extensive peripheral arterial disease, due to significant history of smoking of more than 60 pack years - Continue to monitor for abdominal pain, continue IV antibiotics - Avoid hepatotoxic agents, trend CMP every day #Normocytic anemia Hb 8.3 on admission. Dropped to 6.0 while in ICU and received 1 unit PRBC. Occult blood positive. -Consulted gastroenterology, appreciate recommendations -Obtain CBC in a.m. #PNA Possible superimposed PNA seen on cxr with congestion. -Continue antibiotics #15mm spiculated pulmonary nodule in LLL #Troponinemia-resolved #Hyperglycemia, resolved #Elevated beta hydroxybutyrate-resolved #Hypoglycemia-resolved #Hyperkalemia, resolved #Altered mental status in setting of shock-resolved #Lactic acidosis-resolved Health maintenance: Dispo: okay to DC to SNF from hospitalist team, family is appealing FEN: regular DVT prophylaxis: none CODE STATUS: Full code The patient's management plan was discussed with my attending physician Dr. Matamoros. Lena Sawant, PGY-1 Attending Provider Attestation/Addendum Patient was seen and evaluated. He still cannot make her own decisions. She does not want GI procedure. She is well aware that she might need amputation for her gangrenous toes. Patient was referred to vascular surgery. Family is planning to take her back to [place] soon..
--- NOTE | 2024-06-25 17:38 | PC.NURSE ---
Pts Hgb is 6.9, has ordered 1 unit of PRBC but pt is a very hard stick, transit planning manager has been unsuccessful in getting blood sample for type and screen all day, RT attempted to draw an arterial sample which was again unsuccessful, gusset maker made aware. Dr. Sawant made aware and is looking into other options. Blood transfusion is unable to be administered until type and screen is completed.
[2024-06-25] MEDS: CLOPIDOGREL BISULFATE 75 MG TABLET PO (18:10)
[2024-06-26] VITALS (9 sets, daily range): BP systolic 112–162; BP diastolic 48–90; PULSE 74–123; RESP 13–19; TEMP 36.1–36.6; O2SAT 92–100; BMI 28.0; BMI 12.0
--- NOTE | 2024-06-26 01:06 | PC.NURSE ---
Blood transfusion stopped, IV infiltrated. Unable to obtain another IV access. Dr. Franco made aware that we are unable to get an IV access at this time. Also made aware that the patient only received a small amount (approximate 125 mls) of the blood transfusion a that the remainder of the blood would have to be wasted. Will try and obtain another IV access per ultrasound. Dr. Franco asked to notify him if unable to get access. An IJ IV access may be considered.
[2024-06-26] MEDS: HYDROcodone/APAP 5/325 TABLET 2 TAB PO ×2 (02:28→13:10)
[2024-06-26 02:50] LABS: Basophils % (Auto) 0 % (0-2.5); Eosinophils # (Auto) 0.1 Thou/mm3 (0.0-0.5); Eosinophils % (Auto) 1 % (0-10); Hematocrit 24.3 % (36.0-46.0); Immature Granulocytes % (Auto) 1 % (0-0); Immature Granulocytes Auto 0.18 Thou/mm3 (0.00-0.00); Lymphocytes # (Auto) 1.6 Thou/mm3 (1.0-4.8); Lymphocytes % (Auto) 11 % (10-50); Mean Corpuscular HGB Conc 30.5 g/dl (31.0-37.0); Mean Corpuscular Hemoglobin 25.3 pg (25.0-35.0); Mean Corpuscular Volume 83 fL (80-100); Monocytes # (Auto) 1.3 Thou/mm3 (0.0-0.8); Monocytes % (Auto) 9 % (0-12); Neutrophils # (Auto) 11.3 Thou/mm3 (1.8-7.7); Neutrophils % (Auto) 78 % (37-80); Nucleated Red Blood Cell % 0 /100 WBC (0); Platelet Count 630 Thou/mm3 (140-440); RDW Standard Deviation 56.5 fL (36.4-46.3); Red Blood Count 2.93 Miln/mm3 (4.00-5.20); White Blood Count 14.5 Thou/mm3 (3.6-11.0)
[2024-06-26 03:07] LABS: Alanine Aminotransferase 193 U/L (10-49); Albumin, Serum 2.7 gm/dL (3.4-4.8); Albumin/Globulin Ratio 1.3 (1.2-2.2); Alkaline Phosphatase 71 U/L (46-116); Anion Gap 7 (7-16); Aspartate Amino Transferase 140 U/L (0-34); BUN/Creatinine Ratio 24 Ratio (12-20); Bilirubin,Total 0.2 mg/dL (0.3-1.2); Blood Urea Nitrogen 26 mg/dL (9-23); Calcium 7.6 mg/dL (8.3-10.6); Calcium (Corrected) 8.6 mg/dL (8.5-10.1); Carbon Dioxide 23.4 mMol/L (20.0-31.0); Chloride 104 mMol/L (98-107); Creatinine (Component) 1.1 mg/dL (0.6-1.3); Globulin 2.1 gm/dL (2.3-3.5); Glucose 98 mg/dL (74-106); Magnesium 1.9 mg/dL (1.6-2.6); Osmolality,Calculated 272 (275-295); Sodium 134 mMol/L (136-145); Total Protein 4.8 gm/dL (5.7-8.2); eGFR 50 See Note
[2024-06-26 03:36] LABS: Hemoglobin 7.4 g/dL (12.0-16.0)
[2024-06-26] MEDS: metroNIDAZOLE 250 MG TABLET 500 MG PO (06:04)
[2024-06-26] MEDS: NICOTINE PATCH 21 MG/24 HR PATCH.TD24 TOP (08:29)
[2024-06-26] MEDS: METOPROLOL SUCCINATE XL 25 MG TABCR PO (08:30)
[2024-06-26] MEDS: PREGABALIN 50 MG CAPSULE 100 MG PO (08:30)
[2024-06-26] MEDS: BALSAM PERU/CASTOR OIL (Venelex) 60 GM TUBE TOP (08:30)
[2024-06-26] MEDS: CLOPIDOGREL BISULFATE 75 MG TABLET PO (08:30)
--- NOTE | 2024-06-26 13:23 | PC.CC ---
Stacey 2nd level appeal under physician review per provider portal.
--- NOTE | 2024-06-26 13:37 | ESPR_ITS ---
<Statement entered by Khanh Porter MD - 06/26/24 14:26> I discussed with and supervised the internal audit manager physician involved in the care of this patient. Patient assessment and plan was discussed with entire medicine team, including my attending. I agree with the assessment and plan as documented by internal audit manager doctor. Patient care was discussed with my attending physician Dr. Saturnino Porter, PGY-2 Documentation for date of: 06/26/24 Subjective Subjective Interval history: Patient examined at bedside. IV infiltrated therefore full blood transfusion complete. Received approximately 500 cc. Repeat H&H showed improvement of hemoglobin to 7.4. Daughter was at bedside and expressed understanding of patient's condition of acute limb ischemia. Understands that patient may need to undergo right lower extremity amputation. Patient and daughter both denied any further GI workup to rule out bleed. No plan for EGD or colonoscopy. Family repeatedly asking about management course. They were extensively counseled again today. Explained that no further workup or care can be done in the hospital. It would be best for patient to go to SNF, however family keeps refusing. Hemoglobin this morning 7.4, Cr 1.1. Transitioned from IV antibiotic course to p.o. metronidazole and doxycycline. Okay for discharge to SNF from medical standpoint. However family is appealing the discharge. Exam Vital Signs Temp Pulse Resp BP Pulse Ox O2 Del Method O2 Flow Rate 97.6 F 84 19 124/48 L 96 Room Air 3 06/26/24 12:00 06/26/24 12:06/26/24 12:06/26/24 12:06/26/24 12:06/26/24 12:06/26/24 08:00 Narrative Exam General: Elderly female, No acute distress, cooperative HEENT: NCAT, No JVD noted. Mucosa dry. Pupils are equal and reactive to light bilaterally Cardiovascular: Normal S1 and S2. Regular rate and rhythm. Respiratory: Lungs are clear to auscultation bilaterally. No wheezing or crackles heard. Abdomen: Soft, nontender, not distended, normal bowel sounds. Skin: Warm to touch, dry, no rashes noted Musculoskeletal: No gross injuries. Able to move all 4 extremities. Right foot is dusky, absent bilateral pedal pulses, grayish discoloration noted on all toes. Multiple varicose veins Neuro: Alert and oriented x3. No focal neuro deficits. Psych: Normal affect and mood Objective Labs 06/26/24 02:16 06/26/24 02:16 Labs: Laboratory Results - last 24 hr 06/25/24 06/26/24 15:11 02:16 WBC 14.5 H RBC 2.93 L Hgb 7.4 L Hct 24.3 L MCV 83 MCH 25.3 MCHC 30.5 L RDW Std Deviation 56.5 H Plt Count 630 H D Neut % (Auto) 78 Lymph % (Auto) 11 [place] % (Auto) 9 Eos % (Auto) 1 Baso % (Auto) 0 Neut # (Auto) 11.3 H Lymph # (Auto) 1.6 [place] # (Auto) 1.3 H Eos # (Auto) 0.1 Baso # (Auto) 0.0 Immature Gran # (Auto) 0.18 H Absolute Nucleated RBC 0.00 Immature Gran % 1 H Nucleated RBC % 0 Sodium 134 L Potassium 4.0 Chloride 104 Carbon Dioxide 23.4 Anion Gap 7 BUN 26 H Creatinine 1.1 Estim Creat Clear Calc 34.0 L eGFR 50 L BUN/Creatinine Ratio 24 H Glucose 98 Calculated Osmolality 272 L Calcium 7.6 L Corrected Calcium 8.6 Magnesium 1.9 Total Bilirubin 0.2 L AST 140 H ALT 193 H Alkaline Phosphatase 71 Total Protein 4.8 L Albumin 2.7 L Globulin 2.1 L Albumin/Globulin Ratio 1.3 Blood Type A Positive Antibody Screen NEGATIVE Crossmatch See Detail Blood Bank Wristband ID Yes ABG Interpretation ABG results: 06/18/24 06/18/24 06/18/24 13:32 16:05 22:00 ABG pH 7.42 Cancelled ABG pCO2 31 L Cancelled ABG pO2 62 L Cancelled ABG HCO3 20 Cancelled ABG O2 Saturation 91 Cancelled ABG Base Excess -4 L Cancelled VBG pH 6.95 L VBG pCO2 59 H VBG pO2 44 VBG Base Excess -18 L 06/19/24 06/19/24 02:38 05:08 ABG pH 7.44 ABG pCO2 33 ABG pO2 105 D ABG HCO3 22 ABG O2 Saturation 99 H ABG Base Excess -2 VBG pH 7.18 L VBG pCO2 51 VBG pO2 35 VBG Base Excess -9 L Quality Measures Quality Measures none Advance care planning discussed with:: patient and child Assessment & Plan Assessment Current Active Medications: Generic Name Dose Route Start Last Admin Trade Name Freq PRN Reason Stop Dose Admin Hydrocodone Bitart/Acetaminophen 2 tab 06/23/24 23:18 06/26/24 13:10 Hydrocodone/Apap 5/325 Tablet PO 06/26/24 23:31 2 tab Q4HR PRN Administration Pain 4-10 Albuterol 1 puff 06/22/24 12:43 06/23/24 00:53 Albuterol Inh 8 Gm INH 07/22/24 12:42 1 puff QID PRN Administration shortness of breath or wheezing Balsam [place] Oil 0 gm 06/19/24 21:00 06/26/24 08:30 Balsam [place] Oil (Venelex) 60 Gm Tube TOP 07/19/24 20:59 1 applicatio BID TAWNY Administration Clopidogrel Bisulfate 75 mg 06/25/24 17:00 06/26/24 08:30 Clopidogrel Bisulfate 75 Mg Tablet PO 07/25/24 16:59 75 mg QDAY TAWNY Administration Dextrose 25 ml 06/18/24 12:51 06/19/24 16:02 Dextrose 50%-Water Inj 50 Ml Syringe IV 07/18/24 12:50 25 ml Q15MIN PRN Administration BG 50-70 responsive npo pt Dextrose 50 ml 06/18/24 12:51 Dextrose 50%-Water Inj 50 Ml Syringe IV 07/18/24 12:50 Q15MIN PRN BG <50 OR BG <70 & pt unresponsive Doxycycline Hyclate 100 mg 06/26/24 13:30 Doxycycline 100 Mg Tablet PO 07/03/24 13:29 BID TAWNY Glucagon 1 mg 06/18/24 16:07 Glucagon Inj 1 Mg Vial IM Q15MIN PRN BG <70, and no IV access Ceftriaxone Sodium/Dextrose 2 gm in 50 mls @ 100 mls/hr 06/23/24 09:00 06/23/24 09:27 Rocephin/D5w 2gm IV 06/30/24 08:59 100 mls/hr QDAY TAWNY Administration Metoprolol Succinate 25 mg 06/22/24 10:30 06/26/24 08:30 Metoprolol Succinate Xl 25 Mg Tabcr PO 07/22/24 10:29 25 mg QDAY TAWNY Administration Metronidazole 500 mg 06/26/24 06:00 06/26/24 06:04 Metronidazole 250 Mg Tablet PO 07/03/24 05:59 500 mg TID TAWNY Administration Nicotine 21 mg 06/22/24 12:30 06/26/24 08:29 Nicotine Patch 21 Mg/24 Hr Patch.Td24 TOP 07/22/24 12:29 21 mg QDAY TAWNY Administration Pregabalin 100 mg 06/22/24 13:00 06/26/24 08:30 Pregabalin 50 Mg Capsule PO 07/22/24 12:59 100 mg BID TAWNY Administration Plan Assessment and plan: Summary: Isadora De Souza is 83 yr F with PMH of hypertension, COPD, and CHF ejection fraction of 40-45%, COPD, depression presented to [facility] on 06/18 after found by EMS for altered mental status after she was found down at home by her daughter. Patient lives at home with daughter. Unknown for how long patient was down. She was admitted for treatment of hyperkalemia, rhabdomyolysis. # Acute limb ischemia # Peripheral arterial disease # Hx of carotid endarterectomy #Leukocytosis Patient has elevated WBC count, physical exam shows right foot is dusky, absent bilateral pedal pulses, grayish discoloration noted on all toes. 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 agents metronidazole and doxycycline (06/26-) - Will resume plavix per GI recs - Consulted GI--no EGD - monitor closely - Transfer to higher level of care for vascular surgery evaluation was denied. #HFpEF 55-60%, Diastolic Heart Failure. Echocardiogram: Normal LV size and function. Estimated EF 55-60%. Mild LVH. Diastolic dysfunction present but cannot be graded because of the atrial fibrillation Normal RV size and systolic function. Estimated RVSP 65-70 mmHg - moderate to severely dilated. Mild MR and mildly thickened mitral leaflets. Mild AI. Moderate to severe TR. Dilated IVC. Mildly dilated LA and RA. Plan: - Strict I&O - Fluid restriction ~ 2L - Daily weight #Acute kidney injury, resolving #Rhabdomyolysis-improving Recent ankle sprain, patient likely fell again and was left on ground for prolonged period. Patient was directly admitted to ICU from the ED for closer monitoring of urine output and fluid resuscitation. Continue monitoring urine output hourly with goal 100 cc/h 06/22 - Renal function today shows BUN 30, creatinine 1.4, GFR 37, CK 3867 ?Continue D5W 60cc/h due to low blood glucose (holding for now as patient does not have IV access) - Will no longer trend CK, less than 5000 #Abdominal pain #Transaminitis, improving Initial exam in ED positive for tender to palpation. Reexamination abdominal physical exam is benign. Transaminitis most likely due to rhabdomyolysis. However general surgery GI was consulted concern for mesenteric ischemia Per surgery evaluation, less likely that patient is currently having ischemia. They will continue to monitor. CT abd/pelvis without contrast significant for increased density suggesting inflammatory/infectious etiology CT Abd/Pelvis with contrast ordered by ED to rule out mesenteric ischemia, may shed light on above hyperdensity noted by radiologist Patient received IV Zosyn 3.375mg q8 (06/18-06/21 ) - High suspicion of mesenteric ischemia, possibly chronic, patient does have extensive peripheral arterial disease, due to significant history of smoking of more than 60 pack years - Continue to monitor for abdominal pain, continue IV antibiotics - Avoid hepatotoxic agents, trend CMP every day #Normocytic anemia Hb 8.3 on admission. Dropped to 6.0 while in ICU and received 1 unit PRBC. Occult blood positive. -Consulted gastroenterology, appreciate recommendations -Obtain CBC in a.m. #PNA Possible superimposed PNA seen on cxr with congestion. -Continue antibiotics #15mm spiculated pulmonary nodule in LLL #Troponinemia-resolved #Hyperglycemia, resolved #Elevated beta hydroxybutyrate-resolved #Hypoglycemia-resolved #Hyperkalemia, resolved #Altered mental status in setting of shock-resolved #Lactic acidosis-resolved Health maintenance: Dispo: okay to DC to SNF from hospitalist team, family is appealing FEN: regular DVT prophylaxis: none CODE STATUS: Full code The patient's management plan was discussed with my attending physician Dr. Matamoros. Lena Sawant, PGY-1 Attending Provider Attestation/Addendum Patient was seen and examined. She has discolored toes on the right side. She has diminished pulses, early gangrenous changes right big toe. Patient is not a candidate for vascular procedure. She is still smoking. Patient refuses GI workup. Plan [facility] to [facility] facility. Hospice evaluation recommended earlier. Discussed with housestaff.
--- NOTE | 2024-06-26 13:46 | PC.SS ---
SS was informed by physicians patient's family is requesting a portable O2. SS spoke to Annette who is contracted with patient's health insurance who explained portable O2 must be ordered by PCP due to not everybody being compatible with portable O2. SS has informed pt.
[2024-06-26] MEDS: DOXYCYCLINE 100 MG TABLET PO (14:49)
--- NOTE | 2024-06-26 17:50 | PD.RESDS ---
Planned Discharge Date 06/26/24 DS: Providers Provider Date of admission: 06/18/24 16:16 Primary care physician: Physician No Primary/Family Admitting Provider: Ann Huddleston MD Attending Provider on Admission: Jovon Maatmoros MD Consults: 06/18/24 13:58 Consult to General Surgery Stat Comment: Consulting Provider: Liam Monae 06/18/24 14:54 Consult to Nephrology Stat Comment: Consulting Provider: Lana Pa 06/19/24 01:42 Referral Wound Care Urgent Comment: NEW ADMIT. RED AREAS TO R. HIP AND R. LOWER BACK 06/19/24 15:01 Referral Nutritional Services Routine Comment: Wounds 06/20/24 10:31 Referral Physical Therapy Routine Comment: Physician Instructions: 06/21/24 14:36 Referral Hospice Stat Comment: 06/22/24 12:52 Consult to Gastroenterology Urgent Comment: GI Bleed Consulting Provider: Vishnu Workman 06/22/24 12:55 Referral - [employer] Att[employer] Stat Service Needed for Transfer: Vascular Surgery Addl Comments:: PAD Acute Limb Ischemia 06/23/24 07:58 Consult to Gastroenterology Routine Comment: r/o GI bleed Consulting Provider: Favian Fisher Instructions: r/o GI bleed. +Fobt, Hb downtrending. Patient has severe PAD with acute limb ischemia. 06/23/24 10:34 Referral Physical Therapy Routine Comment: Physician Instructions: Attending Provider on DC: Lena Sawant MD Discharging Provider: Lena Sawant MD DS: Diagnosis Problem List Completed Was Problem List Reviewed/Reconciled?: Yes Hospital Course Hospital Course Hospital course: Reason for hospitalization: rhabdomyolysis and acute limb ischemia Isadora De Souza is a 83-year-old female with past medical history of hypertension, COPD, and CHF ejection fraction of 40-45%, COPD, depression presented to [facility] on 06/18 after found by EMS for altered mental status after she was found down at home by her daughter. Patient lives at home with daughter. Unknown for how long patient was down. She was admitted to the intensive care unit for treatment of rhabdomyolysis (CK 30,000) and hyperkalemia. Patient was started on aggressive IV fluid resuscitation and Lasix, urine output was maintained at significant goal, nephrology was consulted for recommendations. Patient's renal function improved. There was underlying suspicion of bowel ischemia in setting of severe PAD. PAD most likely contributed by extensive smoking history since young age. Rhabdo improved with fluids and patient was downgraded. Vascular surgery was consulted for diminished/absent pedal pulses, no pulse on doppler, and duplex scan showing severe PAD R>L foot. CTA abdomen showed multiple 50% areas of stenosis, significant occlusions of proximal right posterior tubular, right main continuation trunk severe occlusive disease, 50% stenosis distal left superficial femoral artery. On physical exam absent bilateral pedal pulses noted, black-blue discoloration of right foot and toes noted significant concern of acute limb ischemia. Their was plan in place for transfer but was denied by two local vascular surgons due to age and significant comorbidities. It was suggested by surgeons that patient should consider undergoing right BKA. The daughter in [place] was updated and patient plus the daughter agreed to undergo hospice. Patient also had wanted to leave [place] so she could smoke. However, next day, patient's daughter from out of state in [place] arrived. She decided to take patient off hospice and full care was resumed. During hospitalization, IV infiltration kept occurring and multiple attempts were made daily to obtain blood draws which were difficult. GI Dr. Fisher was consulted as well after patient had slowly downtrending hemoglobin and FOBT test positive. RBC transfusion was unsucessful due to IV infiltration. Patient's son-in-law was at bedside when Dr. Fisher had arrived to obtain consent for EGD. They told him that family has refused to undergo the EGD and evaluation of possible upper GI bleeding. Multiple meetings and goals of care discussions were held with family members. Patient was stable from medical standpoint to be transferred to SNF. However family refused. The discharge was appealed by family but was denied. They collectively decided to move patient back to [place] to pursue other possibilities/opinions. Recommendations were given as below. Discharge Recommendations: Resume previous medications. Complete metronidazole 500 mg 3 times a day and doxycycline 100 mg twice a day for 5 days for treatment of infection. Recommend to follow-up with PCP to obtain consult for evaluation by vascular surgeon. Repeat lab work in 1 week to check hemoglobin. Hospital Diagnoses: # Acute limb ischemia # Peripheral arterial disease # Hx of carotid endarterectomy #Leukocytosis #HFpEF 55-60%, Diastolic Heart Failure. #Acute kidney injury #Rhabdomyolysis #Abdominal pain #Transaminitis #Normocytic anemia #PNA #15mm spiculated pulmonary nodule in LLL #Troponinemia #Hyperglycemia #Elevated beta hydroxybutyrate #Hypoglycemia #Hyperkalemia #Altered mental status in setting of shock #Lactic acidosis The patient's management plan was discussed with my attending physician Dr. Matamoros. Lena Sawant MD, PGY-1 Time spent discussing smoking cessation with patient: more than 10 minutes Time Spent with Patient Time attestation: Total time spent providing and/or coordinating discharge services: Time spent: Greater than 30 minutes Exam Vital Signs Temp Pulse Resp BP Pulse Ox O2 Del Method O2 Flow Rate 97.6 F 84 19 124/48 L 96 Room Air 3 06/26/24 12:00 06/26/24 12:00 06/26/24 12:00 06/26/24 12:00 06/26/24 12:00 06/26/24 12:00 06/26/24 08:00 Narrative Exam General: Elderly female, No acute distress, cooperative HEENT: NCAT, No JVD noted. Mucosa dry. Pupils are equal and reactive to light bilaterally Cardiovascular: Normal S1 and S2. Regular rate and rhythm. Respiratory: Lungs are clear to auscultation bilaterally. No wheezing or crackles heard. Abdomen: Soft, nontender, not distended, normal bowel sounds. Skin: Warm to touch, dry, no rashes noted Musculoskeletal: No gross injuries. Only able to fully move b/L UE. Right foot is dark blue-black color escpecially on toe, absent bilateral pedal pulses, grayish discoloration noted on all toes. Multiple varicose veins Neuro: Alert and oriented x3. No focal neuro deficits. Psych: Normal affect and mood Discharge Plan Plan Patient Disposition: HOME (Self Care) Patient condition on transfer: Stable Prescriptions/Referrals Prescriptions/Med Rec: New doxycycline hyclate 100 mg capsule 100 mg PO BID 5 Days Qty: 10 0RF metronidazole 500 mg tablet 500 mg PO Q8H 5 Days Qty: 15 0RF Continued hydrocodone-acetaminophen 10-325 mg Tablet 1 tab PO BID Qty: 0 tizanidine 4 mg Tablet 4 mg PO Q8HR PRN (Reason: Dizziness) amitriptyline 25 mg tablet 25 mg PO HS Patient Comments: TAKE ONE TABLET BY MOUTH EVERY EVENING clopidogrel [Plavix] 75 mg Tablet 75 mg PO QDAY lansoprazole [Prevacid] 30 mg Capsule,Delayed Release(Dr/Ec) 30 mg PO QDAY montelukast [Singulair] 10 mg Tablet 10 mg PO QDAY meclizine 12.5 mg Tablet 12.5 mg PO TID PRN (Reason: Dizziness) sertraline 100 mg Tablet 100 mg PO QDAY misoprostol 200 mcg Tablet 200 mcg PO BID pregabalin 100 mg Capsule 100 mg PO BID metoprolol succinate 25 mg tablet extended release 24 hr 25 mg PO QDAY Patient Comments: TAKE 1 TABLET BY MOUTH EVERY DAY Spiriva Respimat 2.5 mcg/actuation mist 2 inh inhalation QAM Qty: 4 1RF albuterol sulfate 90 mcg/actuation HFA aerosol inhaler 1 inh inhalation QID PRN (Reason: shortness of breath or wheezing) Qty: 6.7 2RF furosemide 40 mg tablet 40 mg PO QDAY Qty: 30 1RF lisinopril 40 mg tablet 40 mg PO QDAY Qty: 30 1RF Held atorvastatin 10 mg Tablet 10 mg PO QPM Hold Instructions: Resume on 07/08/24. Hold until you see your PCP and repeat labs. diclofenac sodium 75 mg Tablet,Delayed Release (Dr/Ec) 75 mg PO BID Hold Instructions: Resume on 07/08/24. Hold until you see PCP. Referrals: No Primary/Family,Physician [Primary Care Provider] - Patient/Caregiver Discharge Instructions Other Discharge Activity Instructions:: Resume previous medications. Complete metronidazole 500 mg 3 times a day and doxycycline 100 mg twice a day for 5 days for treatment of infection. Recommend to follow-up with PCP to obtain consult for evaluation by vascular surgeon. Repeat lab work in 1 week to check hemoglobin. Education Materials: Rhabdomyolysis, Critical Limb Ischemia Print Language: Turkmen Stand Alone Forms: Dianne Award Info., Patient Portal Info Letter Discharge Order Discharge Orders: Discharge (Routine); Ordered 06/24/24 Ordered By: Lena Sawant Quality Discharge Quality Measures VTE prophylaxis Attestestation Attestation I discussed with and supervised the resident physician who took care of this patient. I agree with the assessment and discharge plan as above. I spoke with her daughter from [place]. Patient's daughter said that they will take her to [place].
--- NOTE | 2024-06-26 19:10 | PC.NURSE ---
Pt daughter Sussy decided to take pt home instead of waiting for appeal decision. Family transporting pt in private vehicle, pt has her home o2. Family taking pt to [facility] overnight and will fly to [place] tomorrow. Pt does not have safe place to discharge home to here. Pt and family educated on risks and to bring pt back to the ER immediately if her condition worsens. Family will be taking pt to the nearest hospital as soon as they land in [place].
== END 2024-06-26 18:35 | disposition home or self-care (01) | DRG 557 ==
LOC: SERX 16:06 → SERHOLD 16:43 → S2SX 21:34 → S2NX 06-19 21:31 → SERHOLD 06-25 08:24 → S2SX 06-25 08:24 → S2NX 06-25 08:26
PROVIDERS: Student in an Organized Health Care Education/Training Program; Admitting Provider Internal Medicine; Emergency Provider Emergency Medicine; Visit Provider Internal Medicine
DX: M62.82 Rhabdomyolysis (principal); J18.9 Pneumonia, unspecified organism; R57.9 Shock, unspecified; E87.20 Acidosis, unspecified; N17.9 Acute kidney failure, unspecified; I24.89 Other forms of acute ischemic heart disease; J44.0 Chronic obstructive pulmonary disease with (acute) lower respiratory infection; I50.42 Chronic combined systolic (congestive) and diastolic (congestive) heart failure; E87.0 Hyperosmolality and hypernatremia; R18.8 Other ascites; K55.9 Vascular disorder of intestine, unspecified; I70.268 Atherosclerosis of native arteries of extremities with gangrene, other extremity; F41.9 Anxiety disorder, unspecified; F32.A Depression, unspecified; M81.0 Age-related osteoporosis without current pathological fracture; I11.0 Hypertensive heart disease with heart failure; F17.210 Nicotine dependence, cigarettes, uncomplicated; E87.5 Hyperkalemia; E86.1 Hypovolemia; J44.9 Chronic obstructive pulmonary disease, unspecified; R91.1 Solitary pulmonary nodule; R74.01 Elevation of levels of liver transaminase levels; R73.9 Hyperglycemia, unspecified; R58 Hemorrhage, not elsewhere classified; E16.2 Hypoglycemia, unspecified; R42 Dizziness and giddiness; D64.9 Anemia, unspecified; Z79.01 Long term (current) use of anticoagulants; Z99.81 Dependence on supplemental oxygen; E87.6 Hypokalemia; I48.91 Unspecified atrial fibrillation; I07.1 Rheumatic tricuspid insufficiency; I70.8 Atherosclerosis of other arteries; Z79.02 Long term (current) use of antithrombotics/antiplatelets; Z91.81 History of falling; I27.21 Secondary pulmonary arterial hypertension; Z74.01 Bed confinement status; Z79.899 Other long term (current) drug therapy; Z51.5 Encounter for palliative care; Z53.20 Procedure and treatment not carried out because of patient's decision for unspecified reasons
CPT/HCPCS: 36415; 36600; 70450; 71045; 71250; 74174; 74176; 75635; 80048; 80053; 80069; 80074; 80307; 80320; 80329; 81001; 82010; 82270; 82550; 82803; 82947; 83605; 83735; 84100; 84145; 84443; 84484; 85014; 85018; 85025; 85610; 85730; 86850; 86900; 86901; 86923; 87040; 87081; 93005; 93225; 93306; 93925; 94640; 96361; 96365; 96366; 96367; 96374; 96375; 97162; 99291; A4649; J0456; J0696; J1643; J1815; J1938; J2270; J2470; J2543; J3475; J3490; J7040; J7050; J7070; J7120; P9016; Q9967; A9270; G0480; J1836